=== PATIENT | male | born 1960 | race African-American/Black ===

== ENCOUNTER 2019-10-03 13:35 | Emergency (ER) | payer SELFPAY ==
[2019-10-03 13:36] VITALS: BP 150/114; PULSE 76; RESP 18; TEMP 36.6; O2SAT 99; BMI 22.1
--- NOTE | 2019-10-03 14:10 | EKG12_ITS ---
Test Reason : Blood Pressure : / mmHG Vent. Rate : 063 BPM Atrial Rate : 063 BPM P-R Int : 142 ms QRS Dur : 120 ms QT Int : 434 ms P-R-T Axes : 065 -49 049 degrees QTc Int : 444 ms Normal sinus rhythm Left axis deviation Right bundle branch block Abnormal ECG Confirmed by KRISTIN SNOW, MARCO ANTONIO ([id number]), publications editor TAPAN CASTANEDA ([id number]) on 10/05/2019 12:57:10 PM Referred By: CHRIS Confirmed By:MARCO ANTONIO FOSTER MD
--- NOTE | 2019-10-03 14:11 | ED.DCSUM_ITS ---
- ER Visit Summary Date of Service: 10/03/19 Chief Complaint: Abdominal pain History of Present Illness: The patient is a 58 M with abdominal pain. Patient states that this has been intermittent over the past week. Pain is worsened after eating pizza or greasy foods. He denies nausea or vomiting. Denies diarrhea or constipation. Denies fever or chills. He has had no known exposure to COVID. No recent travel. No loss of sense of taste or smell. Denies shortness of breath or cough. Denies chest pain. Denies other complaints. He states he has missed 3 days of work and needs a note to go back to work. Physical Examination: Vitals are stable. Patient is afebrile. Alert no acute distress. HEENT exam is unremarkable. Neck is supple. Lungs are clear and equal bilaterally. Heart is regular rate and rhythm. Abdomen is soft epigastric, left upper quadrant tenderness with no guarding or rebound Extremities are unremarkable. Skin is warm and dry. No focal neurologic deficit. Remainder of exam is unremarkable. Emergency Department Course and Treatment: Patient was given GI cocktail. EKG is sinus rhythm rate of 63 with no acute ischemic changes. CBC, chemistries unremarkable. Liver enzymes, lipase are normal. Troponin is negative. Patient feels improved following GI cocktail. He was given prescription for Pepcid. Advised to follow-up with his primary care physician. Advised return to ED for worsening complaints. Disposition: Discharge home Impression: Abdominal pain This note was generated with order[employer]ia dictation software. It may contain incorrect words, spelling, and punctuation that were not noted in review of the chart prior to signing ED Disposition - Plan for ED Patient: Instructions: ED Unknown Causes of Abdominal Pain Male Prescriptions: Famotidine [Pepcid] 20 mg PO BID #28 tab Prescription Printed Referrals: Julio Mock MD [NON-STAFF] -
[2019-10-03] MEDS: Mag Hydrox/Al Hydrox/Simeth 30 ML UDC PO (15:00)
[2019-10-03 15:19] LABS: Basophil# 0.04 X10^3/uL; Basophil% 0.8 % (0-1); Eosinophil# 0.33 X10^3/uL; Eosinophils% 6.9 % (0-5); Hematocrit 43.9 % (40-54); Hemoglobin 15.1 g/dL (13.0-16.5); Lymphocyte % 39.8 % (19-41); Mean Corp Hgb Conc 34.4 g/dL (32-36); Mean Corpuscular Hgb 30.6 pg (27.0-32.0); Mean Corpuscular Volume 88.9 fL (80-94); Monocyte# 0.48 X10^3/uL; Monocyte% 10.1 % (0-10); NRBC Flagged by Analyzer 0 % (0-5); Neutrophil # 2.01 X10^3/uL (2.7-7.7); Neutrophil % 42.2 % (47-70); Platelet Count 263 K/mm3 (150-450); RBC Distribution Width CV 14.4 % (11.6-14.6); RBC Distribution Width SD 46.7 fl (35.1-43.9); Red Blood Count 4.94 M/mm3 (4.6-6.2); White Blood Count 4.8 K/mm3 (4.4-11.0)
[2019-10-03 15:40] LABS: ALB/GLOB Ratio 0.8 RATIO (0.9-2.4); AST(SGOT) 10 U/L (15-37); Alanine Aminotransfer ALT/SGPT 13 U/L (16-61); Albumin, Serum 3.3 g/dL (3.2-5.0); Alkaline Phosphatase 75 U/L (45-117); Anion Gap 2 (5-15); BUN 9 mg/dL (7-18); BUN/Creat Ratio 6.8 RATIO (10-20); Calcium,Total 8.8 mg/dL (8.5-10.1); Chloride 107 mmol/L (98-107); Creatinine, Serum 1.32 mg/dL (0.70-1.30); EST Glomerular Filtration Rate 59 mL/min (>60); Est Glom Filt Rate - Afr Amer 71 mL/min (>60); Globulin 4.4 g/dL (2.2-4.2); Glucose 80 mg/dL (74-106); Lipase 172 U/L (73-393); Potassium 3.7 mmol/L (3.5-5.1); Protein, Total 7.7 g/dL (6.4-8.2); Sodium Level 141 mmol/L (136-145)
--- NOTE | 2019-10-03 15:47 | ED.DEP ---
ED Disposition - Plan for ED Patient: Instructions: ED Unknown Causes of Abdominal Pain Male Prescriptions: Famotidine [Pepcid] 20 mg PO BID #28 tab Prescription Printed Referrals: Julio Mock MD [NON-STAFF] -
[2019-10-03 16:09] VITALS: BP 138/89; PULSE 82; RESP 17; O2SAT 96
== END 2019-10-03 16:11 | disposition home or self-care (01) ==
LOC: ED 14:33
PROVIDERS: Emergency Provider Emergency Medicine
DX: R10.9 Unspecified abdominal pain (principal); I45.10 Unspecified right bundle-branch block; Z72.0 Tobacco use
CPT/HCPCS: 80053; 83690; 84484; 85025; 93005; 99284; A4216

== ENCOUNTER 2020-06-21 21:36 | Emergency (ER) | payer MEDICAID, SELFPAY ==
[2020-06-21 21:37] VITALS: BP 126/70; PULSE 76; RESP 18; TEMP 36.4; O2SAT 98; BMI 21.2
--- NOTE | 2020-06-21 22:29 | ED.RN ---
PT SUSPECTS HE HAS HERNIA. REPORTS PAIN IN LFT GROIN AFTER MOVING HEAVY ITEMS THURSDAY. REPORTS PAIN FROM NECK TO GROIN. NAUSEATED SINCE THIS AM. RETCHING, BUT NO VOMITING. REPORTS SENSITIVITY TO LIGHT.
[2020-06-21 23:02] VITALS: BP 147/100; PULSE 78; RESP 18; TEMP 36.6; O2SAT 100
--- NOTE | 2020-06-21 23:05 | US_ITS ---
HISTORY: Pain on left. Evaluate for torsion. 95 images on cine clip. Findings: The cine clip to the left testis demonstrates heterogeneity to the parenchyma. The right testis measures 4.3 x 2.2 x 2 cm. A small right hydrocele is present. Color and pulse-wave Doppler imaging demonstrate arterial flow to right testicular parenchyma. Grayscale images of the left and right testis together in same field of view demonstrate heterogeneity to the left testicular parenchyma. The right epididymal head measures 11 x 8 mm. Color Doppler imaging to the right epididymal head demonstrates flow. The left testis measures 3.4 x 2 x 3.3 cm. Color and pulsed-wave Doppler imaging demonstrate arterial flow and suggests possible venous flow to the left testicular parenchyma. The heterogeneous hypoechoic area is relatively avascular. Tiny left hydrocele is present. The left epididymal head measures 8 mm. The heterogeneous area within the left testicular parenchyma that is mostly hypoechoic relative to the surrounding parenchyma measures 11 x 10 mm Suggested mostly on image 73 and 95, it appears that adjacent to this heterogeneous area there may be a 1.9 cm mass within the left testis that is vascular. US/Testicular with Arterial Flow IMPRESSION: No testicular torsion. Heterogeneous right testis with possible 1.9 cm mass within the heterogeneous left testis. This mass is ill-defined and has hypoechoic avascular superior margins. It is only on one or 2 images were there appears to be a mass otherwise there appears to be an ill-defined area of hypoechoic tissue within the parenchyma. Differential diagnosis includes tumor, such as a nonseminomatous germ cell tumor, infection, or sequelae of trauma. at 0016 Reported and signed by: Armani Robbins MD Electronically Signed: Armani Robbins MD at 0:15 EDT Tel , Service support ,
--- NOTE | 2020-06-21 23:07 | ED.VIS.GI ---
HPI HPI - GI History of Present Illness Chief Complaint: General Illness Informant: patient Abdominal Pain/Flank Pain Onset: Days (2) Context: Gradual Onset (but suddenly worse/severe while at rest tonight) Timing: Continuous and Waxes and wanes Quality: Aching Location: - (left testicle, radiating into left entire abd) Current Severity: Severe Maximum Severity: Severe Worsened by: - (lying on left side, touching or moving testicle) Relieved by: Nothing Nausea/Vomiting/Emesis GI Symptom: Positive for Nausea; Negative for Vomiting Diarrhea/Melena/Hematochezia GI Symptom: Negative for Diarrhea, Melena and Hematochezia Associated Symptoms Associated Symptoms: Negative for Dysuria, Frequency, Hematuria and Urgency Narrative Narrative: Patient presents saying that he has pain from his testicle all the way up into his neck. On further discussion, he states that the pain started in his left testicle and then radiated into his abdomen but was not severe for the last 2 days until just recently prior to arrival, it became very severe all of a sudden with no explanation. He has had nausea off and on. He states his neck on the left is little sore because he has been laying in different positions trying to keep his testicle from hurting, and he thinks he just slept on it wrong. He denies any injuries. Denies any fevers or chills. Denies any discharge or trouble urinating. No history of any abdominal or testicle surgeries or problems, does not take any prescriptions for any medical problems. PFSH PFSH no medical history Home Medications hydrocodone-acetaminophen 1 tab PO Q6H PRN 2 Days #8 tab 06/22/20 [Rx Last Taken Unknown] Allergy/AdvReac Type Severity Reaction Status Date / Time morphine AdvReac Other Verified 06/22/20 00:49 Social History Smoking Status: Current every day smoker ROS ROS ED Constitutional Constitutional ED: Denies chills or fever(s) Eyes Eyes: Denies change in vision or diplopia ENT ENT ED: Denies rhinorrhea or sore throat Cardiovascular Cardiovascular: Denies chest pain or palpitations Respiratory/Chest Respiratory/Chest: Denies cough or dyspnea Gastrointestinal Gastrointestinal: Reports as per HPI and abdominal pain; Denies diarrhea or vomiting Genitourinary Genitourinary ED: Reports as per HPI and scrotal pain; Denies dysuria or hematuria Musculoskeletal Musculoskeletal: Denies back pain Integumentary Denies abscess or rash Neurologic Neurologic: Denies headache(s), paresthesias or weakness Psychiatric Psychiatric: Denies anxiety or suicidal thoughts EXAM Physical Exam Const Vital Signs: 06/21/20 21:37 06/21/20 22:26 06/21/20 23:02 Temperature 97.6 F L 98 F Temperature Source Temporal Temporal Pulse Rate 76 78 Respiratory Rate 18 18 Respiratory Pattern Normal Blood Pressure 126/70 H 147/100 H Blood Pressure Mean 88 115 Pulse Ox 98 100 Oxygen Delivery Method Room Air Room Air 06/22/20 00:00 06/22/20 01:00 Temperature 98 F 97.8 F Temperature Source Temporal Temporal Pulse Rate 86 81 Respiratory Rate 19 H 18 Respiratory Pattern Blood Pressure 138/79 H 130/65 H Blood Pressure Mean 98 86 Pulse Ox 100 99 Oxygen Delivery Method Room Air Positive well nourished and well developed General Appearance ED: well developed and other Mild acute painful distress HEENT Reports moist mucous membranes normocephalic and atraumatic Eyes PERRL and EOMs intact bilaterally Neck full ROM and supple Resp normal respiratory effort and clear to auscultation bilaterally Cardio regular rate, regular rhythm and no murmurs GI non-distended Auscultation: normoactive bowel sounds Palpation: soft and tender LLQ (Only) Narrative: Penis normal. On gross inspection, no hernias in this thin patient. In attempting to examine his testicles, the left is extremely tender, the patient guards and does not allow any detailed examination. It is not grossly swollen. Back/Spine no CVA tenderness General Back: other FROM Extremity normal to inspection General Extremety ED: Negative for edema, pulses abnormal or tenderness General Extremity: Negative for edema or pulses abnormal Neuro oriented x3, CN's II-XII intact bilaterally and no sensory deficits noted Sensorium / Orientation: awake and alert Motor Exam: strength 5/5 throughout Psych mental status grossly normal Mood & Affect: anxious Skin no rashes or lesions noted and no wounds Rashes: no rashes MDM MDM MDM Narrative Medical decision making narrative: Initially there was concern for torsion since he was so exquisitely tender in his left testicle, limiting exam. He was sent for emergent ultrasound, it shows no evidence of torsion but there is a hypoechoic mass in or around the left testicle. Given that the differential also includes a hernia, he was also sent for CT abdomen/pelvis with contrast. His pain was controlled as well as his nausea, and he was given IV fluids. As below his CT is unremarkable. There is no evidence of orchitis or epididymitis or indication for antibiotics at this time. It is unknown if the mass itself was causing all of this pain. Currently his pain is well controlled, and he is discharged with analgesics and close outpatient urologic follow-up. Lab Data Attestation: I reviewed the patient's lab results. Labs: Laboratory Results - last 24 hr 06/22/20 06/22/20 06/22/20 00:20 00:20 01:05 WBC 8.2 RBC 4.97 Hgb 15.0 Hct 43.2 MCV 86.9 MCH 30.2 MCHC 34.7 RDW Std Deviation 46.0 H RDW Coeff of [place] 14.5 Plt Count 264 MPV 9.5 Immature Gran % (Auto) 0.100 Neut % (Auto) 69.4 Lymph % (Auto) 20.4 [place] % (Auto) 8.5 Eos % (Auto) 1.1 Baso % (Auto) 0.5 Absolute Neuts (auto) 5.7 Absolute Lymphs (auto) 1.67 Nucleated RBC % 0 Sodium 137 Potassium 3.8 Chloride 104 Carbon Dioxide 30.0 Anion Gap 3 L BUN 12 Creatinine 1.30 Estim Creat Clear Calc 56.52 Est GFR (MDRD) Af Amer 73 Est GFR (MDRD) Non-Af 60 BUN/Creatinine Ratio 9.2 L Glucose 99 Calcium 9.1 Urine Color Yellow Urine Clarity Clear Urine pH 7.0 Ur Specific [place] 1.010 Urine Protein Negative Urine Glucose (UA) Normal Urine Ketones Negative Urine Occult Blood Negative Urine Nitrite Negative Urine Bilirubin Negative Urine Urobilinogen 8 H Ur Leukocyte Esterase Negative Urine RBC 0 SEEN Urine WBC 0 SEEN Ur Squamous Epith Cells 0-5 SEEN Ur Transition Epith Cell 0-5 SEEN Urine Bacteria 0 SEEN Urine Mucus 0 SEEN Radiography Diagnostic Testing: Radiology Impression Testicular Ultrasound 06/21/20 23:05 IMPRESSION: No testicular torsion. Heterogeneous right testis with possible 1.9 cm mass within the heterogeneous left testis. This mass is ill-defined and has hypoechoic avascular superior margins. It is only on one or 2 images were there appears to be a mass otherwise there appears to be an ill-defined area of hypoechoic tissue within the parenchyma. Differential diagnosis includes tumor, such as a nonseminomatous germ cell tumor, infection, or sequelae of trauma. at 0016 Reported and signed by: Armani Robbins MD Electronically Signed: Armani Robbins MD at 0:15 EDT Tel , Service support , Abdomen/Pelvis CT 06/22/20 01:23 IMPRESSION: Fibrotic lung disease. Likely emphysema. Trace pelvic free fluid. No retroperitoneal adenopathy. Individualized dose optimization techniques were used for this CT. at 0320 Reported and signed by: Armani Robbins MD Electronically Signed: Armani Robbins MD at 3:19 EDT Tel , Service support , Discharge Plan Triage Chief Complaint: General Illness ED Provider: Fernando Murillo Dx/Rx/DC Orders Clinical Impression: Mass of left testicle, Left testicular pain, Left lower quadrant abdominal pain Prescriptions: New hydrocodone-acetaminophen 5-325 mg tablet 1 tab PO Q6H PRN (Reason: pain) 2 Days Qty: 8 RF: 0 Primary Care Provider: Care Physician,No Primary Referrals: Vignesh Pike MD [STAFF PHYSICIAN] - As soon as possible (Call for appointment) Care Physician,No Primary [Primary Care Provider] - Disposition Disposition: Home, self care
[2020-06-22] VITALS: BP 138/79; PULSE 86; RESP 19; TEMP 36.6; O2SAT 100
[2020-06-22] MEDS: Ondansetron 4 MG/2 ML Vial IV (00:25)
[2020-06-22] MEDS: Morphine 4 MG/ML Syringe IV (00:25)
[2020-06-22 00:26] LABS: Absolute Lymphocyte Count 1.67 X10^3/uL (0.83-4.51); Absolute Neutrophil Count 5.7 X10^3/uL (2.0-7.7); Basophil# 0.04 X10^3/uL; Basophil% 0.5 % (0-1); Eosinophil# 0.09 X10^3/uL; Eosinophils% 1.1 % (0-5); Hematocrit 43.2 % (40-54); Lymphocyte # 1.67 X10^3/ul (0.83-4.51); Lymphocyte % 20.4 % (19-41); Mean Corp Hgb Conc 34.7 g/dL (32-36); Mean Corpuscular Hgb 30.2 pg (27.0-32.0); Mean Corpuscular Volume 86.9 fL (80-94); Mean Platelet Vol. 9.5 fl (6.2-12.0); Monocyte% 8.5 % (0-10); NRBC Flagged by Analyzer 0 % (0-5); Neutrophil # 5.68 X10^3/uL (2.7-7.7); Neutrophil % 69.4 % (47-70); Platelet Count 264 K/mm3 (150-450); RBC Distribution Width CV 14.5 % (11.6-14.6); Red Blood Count 4.97 M/mm3 (4.6-6.2); White Blood Count 8.2 K/mm3 (4.4-11.0)
[2020-06-22 00:50] LABS: Anion Gap 3 (5-15); BUN 12 mg/dL (7-18); BUN/Creat Ratio 9.2 RATIO (10-20); Calcium,Total 9.1 mg/dL (8.5-10.1); Chloride 104 mmol/L (98-107); EST Glomerular Filtration Rate 60 mL/min (>60); Est Glom Filt Rate - Afr Amer 73 mL/min (>60); Estimated Creatinine Clearance 56.52 ml/min; Glucose 99 mg/dL (74-106); Potassium 3.8 mmol/L (3.5-5.1); Sodium Level 137 mmol/L (136-145)
[2020-06-22 01:00] VITALS: BP 130/65; PULSE 81; RESP 18; TEMP 36.6; O2SAT 99
[2020-06-22 01:14] LABS: Bacteria 0 SEEN /hpf (None Seen); Mucous, Urine 0 SEEN /hpf (<or=2+); Red Blood Cells-Urine 0 SEEN /hpf (0-5); White Blood Cells 0 SEEN /hpf (0-5)
[2020-06-22 01:15] LABS: Color, Urine Yellow (Yellow); Glucose, Dipstick Normal (Normal); Ketone-Dipstick Negative (Negative); Leukocyte Esterase-Dipstick Negative /ul (Negative); Nitrite-Dipstick Negative (Negative); Occult Blood-Urine Negative /ul (Negative); Protein-Dipstick Negative (Negative); Urine Bilirubin Dipstick Negative (Negative); Urine Clarity Clear (Clear); Urine Urobilinogen 8 mg/dl (Normal)
[2020-06-22 01:21] LABS: Squamous Epithelial Cells - UA 0-5 SEEN /hpf (0-5); Transitional Epithelial - Ur 0-5 SEEN /hpf (0-5)
--- NOTE | 2020-06-22 01:23 | CT_ITS ---
HISTORY: Left-sided abdominal and testicular pain. Abnormality in left testis on testicular ultrasound. TECHNIQUE: Helically acquired images were obtained of the abdomen and pelvis following the intravenous administration of 100 ML of Isovue 300 Iodinated contrast. 2D reformats. No oral contrast was administered. A radiation dose optimization technique was used for this scan. COMPARISON: Testicular ultrasound from 3 hours earlier FINDINGS: # of images incl. paperwork: [id number] LUNG BASES: Fibrotic lung disease. Possible bleb mild paraseptal emphysema. No metastatic pulmonary nodules perceived. The left ventricle is mildly enlarged CT abdomen: The lowest pair of ribs are tiny. There are only 4 non-rib bearing lumbar vertebral bodies, normal anatomic variability The gallbladder remains. Liver, spleen, pancreas, and adrenal glands, are normal. The kidneys are normal. The aorta is normal. CT pelvis: Trace pelvic ascites is present. The appendix is normal. Series 2 image 74. The prostate gland is not enlarged. Series 2 image 124 demonstrates the heterogeneous area within the left testis that is hypodense measuring 12 mm.. The bladder is mildly decompressed. Bowel-gas pattern is normal. CT/Abdomen/Pelvis W IV Cont ONLY IMPRESSION: Fibrotic lung disease. Likely emphysema. Trace pelvic free fluid. No retroperitoneal adenopathy. Individualized dose optimization techniques were used for this CT. at 0320 Reported and signed by: Armani Robbins MD Electronically Signed: Armani Robbins MD at 3:19 EDT Tel , Service support ,
[2020-06-22 03:51] VITALS: BP 135/60; PULSE 78; RESP 18; O2SAT 96
[2020-06-22] MEDS: HYDROcodone Bitartrate/Apap 5/325 Tablet PO (04:19)
== END 2020-06-22 03:51 | disposition home or self-care (01) ==
PROVIDERS: Emergency Provider Emergency Medicine
DX: N50.812 Left testicular pain (principal); R10.32 Left lower quadrant pain; J84.10 Pulmonary fibrosis, unspecified; J98.4 Other disorders of lung; F17.200 Nicotine dependence, unspecified, uncomplicated
CPT/HCPCS: 74177; 76870; 80048; 81001; 85025; 93976; 96374; 96375; 99285; J7040; Q9967; A4216; J2405

== ENCOUNTER 2021-05-29 11:21 | Emergency (ER) | payer MEDICAID, SELFPAY ==
[2021-05-29 11:22] VITALS: BP 184/97; PULSE 61; RESP 16; TEMP 35.9; O2SAT 100; BMI 20.5
[2021-05-29 11:36] LABS: Bedside Glucose 107 mg/dL (74-106)
--- NOTE | 2021-05-29 11:36 | EKG12_ITS ---
Test Reason : SYNCOPE Blood Pressure : / mmHG Vent. Rate : 052 BPM Atrial Rate : 052 BPM P-R Int : 144 ms QRS Dur : 126 ms QT Int : 464 ms P-R-T Axes : 069 -54 045 degrees QTc Int : 431 ms Sinus bradycardia Left axis deviation Right bundle branch block Abnormal ECG Confirmed by SHOSHANA SNOW, JESSICA ([id number]), scientific editor TAPAN CASTANEDA ([id number]) on 05/30/2021 12:47:54 P M Referred By: REJI Confirmed By:KOLBY ANNA MD
[2021-05-29 11:39] VITALS: O2SAT 100
--- NOTE | 2021-05-29 11:39 | EX.ED.DYSGE1 ---
HPI History of Present Illness Chief Complaint: Syncope Informant: patient Onset/Context/Timing Onset: Today and Hours Context: Sudden Onset Timing: Continuous Current Severity: Mild Maximum Severity: Moderate Narrative Narrative: 60-year-old male with no significant past medical history. Currently on no medications. Patient states he was at work felt fine and felt fine the last several days. Patient was at work. States he felt fine. He had a syncopal event in the next thing he remembers after passing out was upright sitting in a chair. Said prior to passing out he thought he felt fine. After he awoke he said he has severe headache and in back of his head. He also noticed weakness in his left arm and leg. He has never had anything like this before. He is on no blood thinners. Prior similar symptoms: No Recent Illness/Hospitalization: No PFSH PFSH Medical History no medical history Home Medications NK 05/29/21 [History Last Taken Unknown] Allergy/AdvReac Type Severity Reaction Status Date / Time morphine AdvReac Other Verified 05/29/21 11:32 Surgical History no surgical history Social History Smoking Status: Current every day smoker tobacco type: cigarettes ROS ROS ED ROS Narrative Denies recent illness. Currently has a headache. Review of Systems ROS Unobtainable: Denies due to encephalopathy Constitutional Constitutional ED: Denies fever(s) Eyes Eyes: Denies change in vision ENT ENT ED: Denies ear pain Cardiovascular Cardiovascular: Denies chest pain Respiratory/Chest Respiratory/Chest: Denies dyspnea Gastrointestinal Gastrointestinal: Denies abdominal pain Genitourinary Genitourinary ED: Denies dysuria Musculoskeletal Musculoskeletal: Denies myalgias Integumentary Denies rash Neurologic Neurologic: Reports headache(s) Psychiatric Psychiatric: Denies depression Endocrine Endocrinology: Denies polyuria Allergic/Immunologic Allergic/Immunologic ED: Denies urticaria EXAM Physical Exam Narrative Exam Narrative: 60-year-old male vital signs stable afebrile. Initial blood pressure was elevated at 184/97. He does not look septic or toxic. H EENT exam pupils round reactive light extremities are intact. No facial droop. Normal speech. There is no signs of trauma on his head or scalp. Scalp is nontender. Neck nontender. Trachea midline. No meningismus. Lungs clear to auscultation bilaterally. Heart regular rhythm rate about 60 no murmur. Chest wall nontender. Abdomen soft nontender. Back nontender. Patient is moving all 4 extremities. 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 Also has a weakness in his left leg versus right. No numbness. Weaker dorsi plantarflexion. He has some ataxia with pointing of the left index finger compared to the right. Also with the left leg. Neurologic exam NIH about a 5. Normal speech. No facial droop. Answers questions normally. Knows date, month, year. Const Vital Signs: 05/29/21 11:22 05/29/21 11:31 05/29/21 11:39 Temperature 96.7 F L Temperature Source Temporal Pulse Rate 61 Respiratory Rate 16 Respiratory Effort Normal Non-Labored Respiratory Pattern Normal Blood Pressure 184/97 H Blood Pressure Mean 126 Pulse Ox 100 100 Oxygen Delivery Method Room Air Room Air 05/29/21 12:25 Temperature Temperature Source Pulse Rate 58 L Respiratory Rate 10 L Respiratory Effort Respiratory Pattern Blood Pressure 182/93 H Blood Pressure Mean 122 Pulse Ox 100 Oxygen Delivery Method Room Air Positive well nourished and well developed; Negative for obese, cachectic, contractures or unkempt General Appearance ED: well developed and NAD; Negative for unkempt, cachectic, contractures, cyanotic, diaphoretic or pallor Nutritional Appearance: Negative for cachectic or obese HEENT Reports moist mucous membranes Negative for trauma or tenderness Eyes PERRL and EOMs intact bilaterally General Eye ED: Negative for pale conjunctiva or scleral icterus Neck no lymphadenopathy, supple and no JVD General: Negative for tenderness Chest Wall inspection of chest normal and palpation of chest normal Resp normal respiratory effort and clear to auscultation bilaterally Effort and Inspection: Negative for pain with movement Auscultation: Negative for rales, rhonchi or wheezes Cardio regular rate, regular rhythm, S1 normal heart sound, S2 normal heart sound and no murmurs GI normal to inspection, nondistended, normoactive bowel sounds, non-tender, non-distended and no masses Inspection: Negative for abdominal distention Auscultation: normoactive bowel sounds Palpation: soft; Negative for tender, guarding or rebound tenderness present Back/Spine no CVA tenderness General Back: Negative for CVA tenderness Cervical Spine: Negative for cervical spine tenderness Thoracic Spine / Upper Back: Negative for thoracic spinal tenderness or paraspinal muscle tenderness Lumbar Spine / Lower Back: Negative for lumbar spinal tenderness Extremity normal to inspection General Extremety ED: Negative for edema or tenderness General Extremity: Negative for edema Neuro oriented x3 and No no sensory deficits noted Neuro Narrative: Left arm weakness and left leg weakness with past-pointing. Sensorium / Orientation: alert; Negative for orientation impaired, lethargic or stuporous Motor Exam: strength abnormal; Negative for strength 5/5 throughout or general weakness Psych mental status grossly normal Appearance: Negative for unkempt Mood & Affect: Negative for depressed or tearful Skin no rashes or lesions noted and no wounds General Skin Exam: Negative for jaundice or pallor MDM MDM MDM Narrative Medical decision making narrative: 60-year-old male at work with a syncopal episode but after he awoke he has had a headache and left arm and leg weakness. To be placed through stroke protocol with a CT and CTA head and neck. Multiple repeat exams patient is doing well. He was evaluated by the [facility] stroke neurologist. She obtained an NIH of around 3. We decided between her, myself and the patient that he was not a tPA candidate. It really does not make sense with his presentation of syncope. I spoke to the patient at length. Explained to him that we would admit him for syncope and we can do further evaluation of the left-sided weakness if it is real or not. Most likely an MRI. He absolutely does not want to be admitted. He understands the risks and benefits of going home. He will go home and follow-up with a primary care physician. He has not seen a physician for 20 years. Repeat exam he is doing well. He did ambulate in the hallway with the nurse without difficulty. Lab Data Attestation: I reviewed the patient's lab results. Lab results narrative: CBC normal. White count 5. H&H 13 and 40. Electrolytes unremarkable gap of 4. Normal BUN and creatinine. Glucose 105. Troponin normal at 7. CTA of the head and neck unremarkable. Labs: Laboratory Results - last 24 hr 05/29/21 05/29/21 05/29/21 11:29 11:30 11:30 WBC 5.1 RBC 4.60 Hgb 13.9 Hct 40.6 MCV 88.3 MCH 30.2 MCHC 34.2 RDW Std Deviation 46.7 H RDW Coeff of Sheldon 14.5 Plt Count 278 MPV 9.9 Immature Gran % (Auto) 0.400 Neut % (Auto) 47.9 Lymph % (Auto) 34.7 [place] % (Auto) 10.3 H Eos % (Auto) 5.9 H Baso % (Auto) 0.8 Absolute Neuts (auto) 2.4 Absolute Lymphs (auto) 1.75 Nucleated RBC % 0 Sodium 140 Potassium 3.7 Chloride 105 Carbon Dioxide 31.0 Anion Gap 4 L BUN 9 Creatinine 1.15 Estim Creat Clear Calc 61.06 Est GFR (MDRD) Af Amer 83 Est GFR (MDRD) Non-Af 69 BUN/Creatinine Ratio 7.8 L Glucose 105 Calcium 8.9 Troponin I High Sens POC Glucose 107 H 05/29/21 11:30 WBC RBC Hgb Hct MCV MCH MCHC RDW Std Deviation RDW Coeff of Sheldon Plt Count MPV Immature Gran % (Auto) Neut % (Auto) Lymph % (Auto) [place] % (Auto) Eos % (Auto) Baso % (Auto) Absolute Neuts (auto) Absolute Lymphs (auto) Nucleated RBC % Sodium Potassium Chloride Carbon Dioxide Anion Gap BUN Creatinine Estim Creat Clear Calc Est GFR (MDRD) Af Amer Est GFR (MDRD) Non-Af BUN/Creatinine Ratio Glucose Calcium Troponin I High Sens 7 POC Glucose Radiography Chest X-Ray - ED: 1 View, Read by ED Physician, Heart, Lungs, Mediastinum, Bony Structures, No Acute Disease and Chronic Changes Diagnostic Testing: Clinical Impression(s) from Imaging Studies Head/Neck CTA 05/29/21 11:40 IMPRESSION: Unremarkable CT Brain, CTA Carotid, and CTA Brain. Electronically Signed: Woody Amezquita MD at 12:14 EDT Reading Location ID and State: [facility] / [place] Tel , Service support , Chest X-Ray 05/29/21 11:55 IMPRESSION: No radiographic evidence of acute cardiopulmonary disease. Electronically Signed: Woody Amezquita MD at 12:15 EDT , Chest x-ray, portable, single view interpreted by myself shows no acute abnormality. Normal cardiac silhouette, lung collins mediastinum and aortic knob. Rhythm Strip Rhythm Strip: Sinus Rhythm Rate: 52 Ectopy: None EKG Initial EKG: Attestation: I personally reviewed and interpreted this EKG as follows: Interpretation: Sinus Rhythm and Sinus Bradycardia Comments: Sinus bradycardia rate of 52 no acute signs of [place] or ischemia. Discharge Plan Triage Chief Complaint: Syncope ED Provider: Galindo Quiñones Dx/Rx/DC Orders Clinical Impression: Syncope, Acute left-sided weakness, Bradycardia Instructions: ED Bradycardia, ED Fainting, Uncertain Cause Prescriptions: No Action NK RF: 0 Primary Care Provider: Care Physician,No Primary Referrals: Paul Thomason MD [STAFF PHYSICIAN] - As soon as possible Care Physician,No Primary [Primary Care Provider] - Activity Restrictions/Additional Instructions: We do not know why you passed out today. When he initially presented your heart rate was slow in the 50s. Normally we would admit you and monitor you over the next 24 hours. You need to follow-up with a primary care physician locally for further evaluation. Your labs today, CAT scan and x-rays were unremarkable. If you pass out again or feeling worse return. Disposition Disposition: Home, Self Care
--- NOTE | 2021-05-29 11:40 | CT_ITS ---
INDICATION: left sided weakness EXAMINATION: CT BRAIN WITH CONTRAST TECHNIQUE: Noncontrast axial images were obtained of the brain. Subsequently, routine carotid CT angiogram protocol was performed without and with IV contrast. In addition, images were obtained of the [place] of [place]. NASCET criteria using the distal ICAs for comparison were used for evaluation of stenoses. 3D reconstructions were reviewed. A radiation dose optimization technique was used for this scan. IV Contrast dosage and agent: 100 mL of Isovue-370 COMPARISON: None. FINDINGS: --CT BRAIN: BRAIN PARENCHYMA: No intra- or extra-axial hemorrhage. No evidence of acute infarct. No intracranial mass or mass effect. There is preservation of the varner/white matter interface. Posterior fossa structures are unremarkable. CSF SPACES: Appropriate for age. No hydrocephalus. Basal cisterns are patent. CALVARIUM, SKULL BASE, PARANASAL SINUSES AND MASTOID AIR CELLS: Clear. No discrete lytic or blastic abnormalities. ASPECTS Score for Acute Strokes: 10 --CTA NECK: AORTIC ARCH AND BRANCHES: Normal anatomy, patent. RIGHT CCA: No occlusion, significant stenosis or dissection. RIGHT ICA: No occlusion, significant stenosis or dissection. LEFT CCA: No occlusion, significant stenosis or dissection. LEFT ICA: No occlusion, significant stenosis or dissection. RIGHT VERTEBRAL ARTERY: No occlusion, significant stenosis or dissection. LEFT VERTEBRAL ARTERY: No occlusion, significant stenosis or dissection. NECK SOFT TISSUES: Unremarkable. --CTA HEAD: --Anterior circulation: ICAs: No significant stenosis at the intracranial/visualized segments. ACAs: No significant stenosis at the visualized segments. ACOM: Present. MCAs: No significant stenosis at the visualized segments. --Posterior circulation: PCOMs: voice over artist: No significant stenosis at the visualized segments. BASILAR ARTERY: No significant stenosis. VERTEBRAL ARTERIES: No significant stenosis at the intradural/visualized segments. No evidence of intracranial aneurysm or vascular malformation. CT/CTA Head AND Neck W/ Contrast IMPRESSION: Unremarkable CT Brain, CTA Carotid, and CTA Brain. Electronically Signed: Woody Amezquita MD at 12:14 EDT ,
[2021-05-29 11:45] LABS: Absolute Lymphocyte Count 1.75 X10^3/uL (0.83-4.51); Absolute Neutrophil Count 2.4 X10^3/uL (2.0-7.7); Basophil# 0.04 X10^3/uL; Basophil% 0.8 % (0-1); Eosinophils% 5.9 % (0-5); Hematocrit 40.6 % (40-54); Hemoglobin 13.9 g/dL (13.0-16.5); Lymphocyte # 1.75 X10^3/ul (0.83-4.51); Lymphocyte % 34.7 % (19-41); Mean Corp Hgb Conc 34.2 g/dL (32-36); Mean Corpuscular Hgb 30.2 pg (27.0-32.0); Mean Corpuscular Volume 88.3 fL (80-94); Mean Platelet Vol. 9.9 fl (6.2-12.0); Monocyte# 0.52 X10^3/uL; Monocyte% 10.3 % (0-10); NRBC Flagged by Analyzer 0 % (0-5); Neutrophil # 2.42 X10^3/uL (2.7-7.7); Neutrophil % 47.9 % (47-70); Platelet Count 278 K/mm3 (150-450); RBC Distribution Width CV 14.5 % (11.6-14.6); RBC Distribution Width SD 46.7 fl (35.1-43.9); White Blood Count 5.1 K/mm3 (4.4-11.0)
--- NOTE | 2021-05-29 11:55 | RAD_ITS ---
INDICATION: chest pain EXAMINATION/TECHNIQUE: X-RAY - XR Chest 1 View COMPARISON: None. FINDINGS: LINES/DEVICES: None. LUNGS: No consolidation, edema or effusion. No pneumothorax. MEDIASTINUM AND CARDIOVASCULAR STRUCTURES: Cardiac silhouette not enlarged. Central airways and mediastinal contour are unremarkable. BONES AND SOFT TISSUES: Unremarkable. RAD/Chest 1 View (Portable) IMPRESSION: No radiographic evidence of acute cardiopulmonary disease. Electronically Signed: Woody Amezquita MD at 12:15 EDT ,
[2021-05-29 11:58] LABS: Anion Gap 4 (5-15); BUN 9 mg/dL (7-18); BUN/Creat Ratio 7.8 RATIO (10-20); Calcium,Total 8.9 mg/dL (8.5-10.1); Chloride 105 mmol/L (98-107); Creatinine, Serum 1.15 mg/dL (0.70-1.30); EST Glomerular Filtration Rate 69 mL/min (>60); Est Glom Filt Rate - Afr Amer 83 mL/min (>60); Estimated Creatinine Clearance 61.06 ml/min; Glucose 105 mg/dL (74-106); Potassium 3.7 mmol/L (3.5-5.1); Sodium Level 140 mmol/L (136-145)
[2021-05-29 12:05] LABS: Troponin-I HS (w/2H Reflex) 7 pg/mL (3.0-78.0)
--- NOTE | 2021-05-29 12:12 | CM.ED ---
Social Work Responding to stroke alert. No family present. Patient request for this manager social media to contact patients on, Rafael to update on patient being in ED and that a stroke alert has been called. Telephone call to Rafael, This manager social media introduced self and manager social media role. This manager social media updated Rafael on above information. Rafael plans to head to ED and will be here in the next hour or so. This manager social media updated patient that Rafael is heading towards the ED but will be an hour or so. Patient denies any other request/social work needs. No further services indicated or requested. Jarad Jones MSW, TALITA
--- NOTE | 2021-05-29 12:16 | ED.RN ---
THIS RN AT BEDSIDE WITH TAWNY WHITTEN. CALLED [facility] STROKE LERT PER DAGOBERTO MENDOZA MD. BP 182/93 PULSE 62 RR 15
[2021-05-29 12:25] VITALS: BP 182/93; PULSE 58; RESP 10; O2SAT 100
[2021-05-29 13:10] VITALS: BP 157/89; PULSE 50; RESP 17; O2SAT 97
--- NOTE | 2021-05-29 13:12 | CM.ED ---
Supervisor Hand Workers This drug abuse social worker also noting that patient does not have a PCP. Patient to be discharge to the community. This drug abuse social worker met with patient in room again. Patient remembering this drug abuse social worker from earlier. This drug abuse social worker broached topic of PCP for patient. Patient confirms to not have a PCP. Patient is open to this drug abuse social worker providing patient with list of in-network PCP's that are local to patient geographical region, list provided. Patient denies any further needs/concerns. Jarad Jones MSW, PATRICIA-S
[2021-05-29 13:40] LABS: Reflex Troponin-HS? (from REC) Y
--- NOTE | 2021-05-29 15:25 | CHAPLAIN ---
Type of Pastoral Visit ___ Initial Visit ___ Follow-up Visit ___ On-call Visit ___ General Patient Visit ___ Spiritual Assessment ___ Family Conference ___ Bereavement _x__ Rapid Response ___ Code Blue ___ Other (describe below) Pastoral Care Referral From ___ Patient ___ Family ___ Nurse ___ Physician ___ Reinforcing Steel Placer ___ Network Management Specialist _x__ Other (describe below) Sacrament/Intervention ___ Active listening ___ Anointing ___ Orthodoxy ___ Bereavement ___ Communion ___ Emily exploration ___ ___ Life review ___ Prayer ___ Reconciliation ___ Sacrament of Sick ___ Supportive presence ___ Wedding ___ Other (describe below) Pastoral Comments responded to stroke alert; patient is in room waiting for consult with [facility] team; introduced self and offered support; pt is able to speak and understand; pt states that he appreciates offer but is doing fine; evaluation begins so this hydroelectric plant electrician left room; no family members or friends are present at this time; SW is on the scene as well
== END 2021-05-29 13:13 | disposition home or self-care (01) ==
PROVIDERS: Emergency Provider Emergency Medicine; Visit Provider Emergency Medicine
DX: R55 Syncope and collapse (principal); R00.1 Bradycardia, unspecified; F17.210 Nicotine dependence, cigarettes, uncomplicated; R53.1 Weakness
CPT/HCPCS: 70496; 70498; 71045; 80048; 82962; 84484; 85025; 93005; 99285; Q9967

== ENCOUNTER 2021-09-11 15:38 | Emergency (ER) | payer BC, MEDICAID, SELFPAY ==
[2021-09-11 15:39] VITALS: BP 150/96; PULSE 73; RESP 16; TEMP 36.6; O2SAT 98; BMI 20.7
[2021-09-11] MEDS: Acetaminophen 325 MG Tablet 650 MG PO (16:01)
--- NOTE | 2021-09-11 16:01 | EDS_ITS ---
HPI History of Present Illness Chief Complaint: General Illness Informant: patient Narrative Narrative: Patient is a 60-year-old male that denies any significant past medical history however chart review does show history of depression, presenting with flulike illness. Patient states he woke up this morning not feeling right and now just hurts all over. He states he has body aches, all of his joints hurt especially his shoulders and his hips, his mouth feels dry and I feel like he is going to . Notes that even his eyes hurt. Has not taken anything [id number] for his medications. States that he missed work today because he is not feeling well. He has had a cough today that is productive of phlegm but denies any colors in the phlegm. Is a smoker. Notes that his boss and coworker recently returned to work after diagnosis of COVID. Has nausea but no vomiting. Denies any diarrhea. Has been urinating normally but notes that his urine is darker today. Admits to decreased oral intake today. No other complaints at this time. PFSH PFSH Home Medications nicotine (polacrilex) 2 mg gum 2 mg buccal Q2H #50 ea 08/15/21 [Rx Last Taken Unknown] nicotine 21 mg/24 hr daily transdermal patch 1 patch transdermal DAILY #28 ea 08/15/21 [Rx Last Taken Unknown] omeprazole 20 mg capsule,delayed release 20 mg PO DAILY #30 caps 08/27/21 [Rx Last Taken Unknown] ibuprofen 600 mg tablet 600 mg PO Q6H PRN PRN fever or pain #20 tabs 09/11/21 [Rx Last Taken Unknown] Allergy/AdvReac Type Severity Reaction Status Date / Time morphine AdvReac Other Verified 09/11/21 15:40 Family History Brother Kidney disease Unknown Kidney disease Unknown Kidney disease Surgical History History of tonsillectomy Social History household members: none current occupational status: employed current occupation: works at the [employer] Smoking Status: Current every day smoker tobacco type: cigars per week: 35 Tobacco: How many years used: 37 Electronic Cigarette Use: not used alcohol intake: former year quit: 2004 substance use type: marijuana what type of physical activity do you participate in: none do you feel safe at home: Yes ROS ROS ED Constitutional Constitutional ED: Reports chills; Denies fever(s) or sweats Eyes Eyes: Denies change in vision or diplopia ENT ENT ED: Reports sore throat; Denies ear pain or rhinorrhea Cardiovascular Cardiovascular: Denies chest pain or palpitations Respiratory/Chest Respiratory/Chest: Reports cough; Denies dyspnea or dyspnea on exertion Gastrointestinal Gastrointestinal: Reports nausea; Denies abdominal pain, constipation, diarrhea or vomiting Genitourinary Genitourinary ED: Denies dysuria, hematuria or urinary frequency Musculoskeletal Musculoskeletal: Reports arthralgias, back pain, myalgias and neck pain Integumentary Denies rash Neurologic Neurologic: Reports headache(s); Denies paresthesias or weakness Psychiatric Psychiatric: Denies anxiety EXAM Physical Exam Const Vital Signs: 09/11/21 15:39 09/11/21 15:53 09/11/21 16:03 Temperature 98 F 99.6 F H Temperature Source Temporal Oral Pulse Rate 73 Respiratory Rate 16 Respiratory Effort Normal Non-Labored Respiratory Pattern Normal Blood Pressure 150/96 H Blood Pressure Mean 114 Pulse Ox 98 Oxygen Delivery Method Room Air Positive well nourished and well developed Constitutional Narrative: Thin General Appearance ED: well developed and NAD HEENT Reports moist mucous membranes HEENT Narrative: Mild oral pharyngeal injection present. Uvula is midline. Negative for trauma Eyes PERRL and EOMs intact bilaterally General Eye ED: Negative for pale conjunctiva or scleral icterus Neck supple and no JVD Neck Narrative: No meningeal signs Chest Wall inspection of chest normal Resp normal respiratory effort and clear to auscultation bilaterally Auscultation: Negative for rales, rhonchi or wheezes Cardio regular rate, regular rhythm and no murmurs GI normal to inspection, nondistended, normoactive bowel sounds Palpation: tender periumbilical; Negative for guarding or splenomegaly Back/Spine no CVA tenderness Extremity normal to inspection Extremity Narrative: Diffuse tenderness with palpation. General Extremety ED: Yes tenderness; Negative for edema General Extremity: Negative for edema Neuro oriented x3 and no sensory deficits noted Motor Exam: general weakness Psych mental status grossly normal Mood & Affect: anxious Skin no rashes or lesions noted and no wounds MDM MDM MDM Narrative Medical decision making narrative: Patient is evaluated for chills, generalized malaise, myalgias and arthralgias. He does have a cough. Presentation consistent with a viral illness, possibly COVID given his recent exposures. Patient is given ibuprofen and Tylenol in the emergency room with improvement of his symptoms. On repeat evaluation patient is eating [employer] and stating he is hungry. Patient will be given a work note and counseled that while his rapid COVID test is negative it is possible that since he is only had 24 hours of symptoms it is a false negative. He is offered a PCR test but declines. Is counseled to take at home COVID test in 48 hours if still symptomatic. Will be given a work note. Given a prescription for Motrin 600 mg. Counseled on keeping up his hydration. Discharged home in stable and improved condition. Radiography Chest X-Ray - ED: 1 View, Read by ED Physician, Read by Radiologist and No Acute Disease Diagnostic Testing: Clinical Impression(s) from Imaging Studies Chest X-Ray 09/11/21 16:09 IMPRESSION: No acute cardiopulmonary process. Electronically Signed: Kirsten Pang MD at 16:32 EDT , Discharge Plan Triage Chief Complaint: General Illness ED Provider: Magali Urban Dx/Rx/DC Orders Clinical Impression: Viral illness, Arthralgia, Malaise and fatigue Instructions: ED Viral Syndrome (Adult) Prescriptions: New ibuprofen 600 mg tablet 600 mg PO Q6H PRN PRN (Reason: fever or pain) Qty: 20 0RF No Action nicotine 21 mg/24 hr patch 24 hour 1 patch transdermal DAILY Qty: 28 0RF nicotine (polacrilex) 2 mg gum 2 mg buccal Q2H Qty: 50 0RF omeprazole 20 mg capsule,delayed release(DR/EC) 20 mg PO DAILY Qty: 30 1RF Stand Alone Forms: ED Work / School Excuse Primary Care Provider: Nicolasa Machuca Referrals: Nicolasa Machuca MD [Primary Care Provider] - Activity Restrictions/Additional Instructions: I suspect you have a viral illness that is causing her symptoms. While your COVID test was negative you should retest in 2 to 3 days if still symptomatic with a home test. It is possible you had a false negative today since you have only had symptoms for 1 day. Take [id number] Tylenol as well and in ad dition to the ibuprofen prescribed today for your symptoms. Drink lots of fluids. Disposition Disposition: Home, Self Care
[2021-09-11] MEDS: Ibuprofen 600 MG Tablet PO (16:02)
[2021-09-11 16:03] VITALS: TEMP 37.6
--- NOTE | 2021-09-11 16:09 | RAD_ITS ---
STUDY: X-RAY CHEST REASON FOR EXAM: Male, 60 years old. Cough TECHNIQUE: Single frontal view of the chest. COMPARISON: 05/29/2021 FINDINGS: There is no new focal consolidation. Normal size heart. Normal mediastinum and rachel. Normal visualized pulmonary arteries. Normal visualized aortic arch and descending thoracic aorta. Normal visualized thoracic spine. Normal visualized ribs, clavicles, and shoulders. There is no demonstrated abnormality of the visualized soft tissue structures of the upper abdomen. RAD/Chest 1 View (Portable) IMPRESSION: No acute cardiopulmonary process. Electronically Signed: Kirsten Pang MD at 16:32 EDT ,
== END 2021-09-11 17:44 | disposition home or self-care (01) ==
PROVIDERS: Emergency Provider Emergency Medicine; PCP Internal Medicine; Visit Provider Emergency Medicine
DX: B34.9 Viral infection, unspecified (principal); F17.290 Nicotine dependence, other tobacco product, uncomplicated; R53.81 Other malaise; F12.90 Cannabis use, unspecified, uncomplicated; R11.0 Nausea; Z20.822 Contact with and (suspected) exposure to COVID-19; R53.83 Other fatigue
CPT/HCPCS: 71045; 87811; 99283

== ENCOUNTER 2022-01-16 10:57 | Emergency (ER) | payer MEDICAID, BC, SELFPAY ==
[2022-01-16 10:58] VITALS: BP 112/89; PULSE 70; RESP 16; TEMP 36.6; O2SAT 100; BMI 19.2
--- NOTE | 2022-01-16 12:11 | EDS_ITS ---
HPI History of Present Illness Chief Complaint: General Illness Narrative Narrative: 61-year-old male, smoker, who denies significant past medical history presents with fever, myalgias, and generalized weakness that has had since Thursday, 4 days ago. He has been taking Tylenol but complains of multiple myalgias, and rib pain when he breathes. He denies any nausea or vomiting. No diarrhea. No other symptoms. [facility] Medical History (Updated 01/16/22 @ 13:53 by Hardik Healy MD) COVID Home Medications ibuprofen 600 mg tablet 600 mg PO Q6H PRN PRN fever or pain #20 tabs 09/11/21 [Rx Last Taken Unknown] Allergy/AdvReac Type Severity Reaction Status Date / Time morphine AdvReac Other Verified 01/16/22 10:59 Family History Brother Kidney disease Unknown Kidney disease Unknown Kidney disease Surgical History History of tonsillectomy Social History household members: none current occupational status: employed current occupation: works at the [employer] Smoking Status: Current every day smoker tobacco type: cigars per week: 35 Tobacco: How many years used: 37 Electronic Cigarette Use: not used alcohol intake: former year quit: 2004 substance use type: marijuana what type of physical activity do you participate in: none do you feel safe at home: Yes EXAM Physical Exam Const Vital Signs: 01/16/22 10:58 01/16/22 11:04 Temperature 97.9 F Temperature Source Temporal Pulse Rate 70 Respiratory Rate 16 Respiratory Effort Normal Non-Labored Respiratory Pattern Normal Blood Pressure 112/89 H Blood Pressure Mean 96 Pulse Ox 100 Oxygen Delivery Method Room Air MDM MDM MDM Narrative Medical decision making narrative: Karina Barrios percent on room air. Chest x-ray was obtained to look for pneumonia or pneumothorax. My interpretation of his chest x-ray shows no acute process, no infiltrate or pneumothorax. Respiratory swabs are negative for COVID, influenza, and RSV. At this point in time, I feel he can be discharged safely home with symptomatic treatment. He will drink plenty of oral fluids, take [id number] medications for his myalgias/viral syndrome. He was given a note to be off work today and tomorrow. He will follow-up with his primary care provider. Return instructions were reviewed. Disposition is discharged home in stable condition. Radiography Diagnostic Testing: Clinical Impression(s) from Imaging Studies Chest X-Ray 01/16/22 12:23 IMPRESSION: Hyperinflation. The lungs are clear. Electronically Signed: Evens Nugent MD at 12:59 EST , Discharge Plan Triage Chief Complaint: General Illness ED Provider: Hardik Healy Dx/Rx/DC Orders Clinical Impression: URI (upper respiratory infection), Viral syndrome Prescriptions: No Action ibuprofen 600 mg tablet 600 mg PO Q6H PRN PRN (Reason: fever or pain) Qty: 20 0RF Stand Alone Forms: ED Work / School Excuse Primary Care Provider: Nicolasa Machuca Referrals: Nicolasa Machuca MD [Primary Care Provider] - 1 Week if not improving Disposition Disposition: Home, Self Care
--- NOTE | 2022-01-16 12:23 | RAD_ITS ---
STUDY: X-RAY CHEST REASON FOR EXAM: Male, 61 years old. Shortness of breath TECHNIQUE: Single AP portable view of the chest. COMPARISON: Comparison is made with prior study 09/11/2021. FINDINGS: Hyperinflation. The lungs are clear. There is no demonstrated pleural abnormality. Normal size heart. Normal mediastinum and rachel. Normal visualized pulmonary arteries. Normal visualized aortic arch and descending thoracic aorta. Normal visualized thoracic spine. Normal visualized ribs, clavicles, and shoulders. There is no demonstrated abnormality of the visualized soft tissue structures of the upper abdomen. RAD/Chest 1 View (Portable) IMPRESSION: Hyperinflation. The lungs are clear. Electronically Signed: Evens Nugent MD at 12:59 EST ,
[2022-01-16 14:03] VITALS: PULSE 83; RESP 16; TEMP 36.6
== END 2022-01-16 14:05 | disposition home or self-care (01) ==
PROVIDERS: Emergency Provider Emergency Medicine; PCP Internal Medicine; Visit Provider Emergency Medicine
DX: B34.9 Viral infection, unspecified (principal); J06.9 Acute upper respiratory infection, unspecified; F17.290 Nicotine dependence, other tobacco product, uncomplicated; R07.81 Pleurodynia
CPT/HCPCS: 71045; 87428; 87807; 99282

== ENCOUNTER 2022-08-11 12:05 | Emergency (ER) | payer MEDICAID, SELFPAY ==
[2022-08-11 12:06] VITALS: BP 138/90; PULSE 66; RESP 14; TEMP 36.5; O2SAT 100; BMI 20.7
--- NOTE | 2022-08-11 13:01 | RAD_ITS ---
STUDY: X-RAY CHEST REASON FOR EXAM: Male, 61 years old. Wt loss and trouble swallowing. Smoker TECHNIQUE: PA and lateral views of the chest. COMPARISON: Comparison is made with prior study dated January 16, 2022. FINDINGS: There is hyperinflation of the lungs consistent with chronic obstructive lung disease (COPD). There is no demonstrated pleural abnormality. Normal size heart. Normal mediastinum and rachel. Normal visualized pulmonary arteries. Normal visualized aortic arch and descending thoracic aorta. Normal visualized thoracic spine. Normal visualized ribs, clavicles, and shoulders. There is no demonstrated abnormality of the visualized soft tissue structures of the upper abdomen. RAD/Chest PA and Lateral IMPRESSION: Hyperinflation. The lungs are clear. Electronically Signed: Evens Nugent MD at 13:30 EDT ,
--- NOTE | 2022-08-11 13:04 | EX.ED.DYSGE1 ---
HPI History of Present Illness Chief Complaint: Other, Pain/Inj Detail of Chief Complaint: Difficulty swallowing and uncomfortable. Informant: patient Onset/Context/Timing Onset: Weeks Context: Gradual Onset Timing: Continuous Current Severity: Mild Maximum Severity: Mild Narrative Narrative: 61-year-old male no seen past medical history. Patient has had difficulty swallowing the last 2 weeks. He is able to swallow but is uncomfortable at times he feels like he is choking. Denies any prior upper endoscopy. Denies any throat or esophageal surgery in the past. He is a smoker and has lost 10 to 15 pounds in the last 2 months. He denies any shortness of breath or hemoptysis. He denies any abdominal pain. Prior similar symptoms: Yes Recent Illness/Hospitalization: No PFSH PFSH Medical History COVID Home Medications ibuprofen 600 mg tablet 600 mg PO Q6H PRN PRN fever or pain #20 tabs 09/11/21 [Rx Last Taken Unknown] pantoprazole 40 mg tablet,delayed release (Protonix) 40 mg PO DAILY #30 tabs 08/11/22 [Rx Last Taken Unknown] Allergy/AdvReac Type Severity Reaction Status Date / Time morphine AdvReac Other Verified 08/11/22 12:07 Family History Brother Kidney disease Unknown Kidney disease Unknown Kidney disease Surgical History History of tonsillectomy Social History household members: none current occupational status: employed current occupation: works at [employer] Smoking Status: Current every day smoker tobacco type: cigars per week: 35 Tobacco: How many years used: 37 Electronic Cigarette Use: not used alcohol intake: former year quit: 2004 substance use type: marijuana what type of physical activity do you participate in: none do you feel safe at home: Yes ROS ROS ED ROS Narrative Difficulty swallowing. Weight loss. Review of Systems ROS Unobtainable: Denies due to encephalopathy Constitutional Constitutional ED: Denies chills or fever(s) Eyes Eyes: Denies blurry vision ENT ENT ED: Denies ear pain Cardiovascular Cardiovascular: Denies chest pain Respiratory/Chest Respiratory/Chest: Denies cough or dyspnea Gastrointestinal Gastrointestinal: Denies abdominal pain, constipation, diarrhea, melena, nausea or vomiting Genitourinary Genitourinary ED: Denies dysuria Musculoskeletal Musculoskeletal: Denies arthralgias Integumentary Denies abscess Neurologic Neurologic: Denies headache(s) Psychiatric Psychiatric: Denies anxiety Endocrine Endocrinology: Denies cold intolerance Hematologic/Lymphatic Hematologic/Lymphatic: Reports none Allergic/Immunologic Allergic/Immunologic ED: Denies mouth swelling or tongue swelling EXAM Physical Exam Narrative Exam Narrative: Well-appearing 61-year-old male. Vital signs stable afebrile. Pulse ox 100% on room air no hypoxia. He is in no distress. Lying in bed comfortably. HEENT exam unremarkable. Posterior pharynx normal. Moist mucous membranes. There is no masses. He has no stridor or drooling. I gave him a glass of water he is able to drink and swallow without any difficulty. Neck nontender. Trachea midline. No lymphadenopathy. No masses. Lungs clear to auscultation bilaterally. Heart regular rhythm rate about 65 no murmur. Chest wall nontender. Abdomen soft nontender. No peritoneal signs. Moving all 4 extremities. Nontender no edema. Neurologically is awake and alert with no focal motor deficits. Benign exam. Const Vital Signs: 08/11/22 12:06 08/11/22 12:59 Temperature 97.7 F L Temperature Source Temporal Pulse Rate 66 Respiratory Rate 14 Respiratory Effort Normal Non-Labored Respiratory Pattern Normal Blood Pressure 138/90 H Blood Pressure Mean 106 Pulse Ox 100 Oxygen Delivery Method Room Air Positive well nourished and well developed; Negative for obese, cachectic, contractures or unkempt General Appearance ED: well developed and NAD; Negative for unkempt, cachectic, contractures, cyanotic, diaphoretic or pallor Nutritional Appearance: Negative for cachectic or obese HEENT Reports moist mucous membranes; Denies dry mucous membranes Negative for trauma or tenderness Mouth ED: No dry mucous membranes Mouth: No dry mucous membranes Eyes PERRL and EOMs intact bilaterally General Eye ED: Negative for pale conjunctiva or scleral icterus Neck no lymphadenopathy, supple and no JVD General: Negative for tenderness Lymph Lymphatic: Negative for other Chest Wall inspection of chest normal and palpation of chest normal Chest: Negative for other Resp normal respiratory effort and clear to auscultation bilaterally Effort and Inspection: Negative for retractions Auscultation: Negative for rales, rhonchi or wheezes Cardio regular rate, regular rhythm, S1 normal heart sound, S2 normal heart sound and no murmurs Palpation: Negative for palpable S3 Rate: Negative for bradycardia Rhythm: Negative for abnormal rhythm GI normal to inspection, nondistended, normoactive bowel sounds, non-tender, non-distended and no masses Inspection: Negative for abdominal distention Auscultation: normoactive bowel sounds Palpation: soft; Negative for tender or guarding Rectal Exam: Negative for normal sphincter tone Bladder / Kidney Exam: No other Back/Spine no CVA tenderness General Back: Negative for CVA tenderness Cervical Spine: Negative for cervical spine tenderness Thoracic Spine / Upper Back: Negative for thoracic spinal tenderness Lumbar Spine / Lower Back: Negative for lumbar spinal tenderness Extremity normal to inspection General Extremety ED: Negative for edema or tenderness General Extremity: Negative for edema Neuro oriented x3 and CN's II-XII intact bilaterally Sensorium / Orientation: alert; Negative for orientation impaired, lethargic or stuporous Motor Exam: strength 5/5 throughout; Negative for general weakness Psych mental status grossly normal Appearance: Negative for unkempt Attitude: No agitated Mood & Affect: Negative for depressed, anxious or tearful Skin no rashes or lesions noted, no wounds and skin turgor normal General Skin Exam: elasticity normal; Negative for jaundice or pallor Lesions: No lesion noted Rashes: No rashes noted Trauma: Negative for abrasion Wounds: Negative for wounds noted MDM MDM MDM Narrative Medical decision making narrative: 1-year-old trouble swallowing and weight loss. Exam benign. He was able to swallow water without any difficulty. This may be from reflux, esophageal inflammation, possibly a stricture or mass. With the weight loss and him being a smoker I am obtaining a chest x-ray. He will be placed on Protonix for possible reflux and esophagitis and he will need to follow-up with possible upper endoscopy. Patient doing well at 1:20 PM. To be discharged home on Protonix. Outpatient follow-up if is not improving for possible upper endoscopy if he continues to have trouble swallowing and weight loss. History & Record Review Discussion w/independent historian: Patient Additional record(s) reviewed:: Prior inpatient record, Prior outpatient record, Prior ED visit and Prior labs Radiography Chest X-Ray - ED: 2 View, Read by ED Physician, Heart, Lungs, Mediastinum, Bony Structures, No Acute Disease and Chronic Changes Diagnostic Testing: Chest x-ray, 2 views AP and lateral, interpreted by myself shows no acute abnormality. Normal cardiac silhouette. Normal mediastinum. No masses. Discharge Plan Triage Chief Complaint: Other, Pain/Inj ED Provider: Galindo Quiñones Dx/Rx/DC Orders Clinical Impression: Esophagitis Instructions: Esophagitis Prescriptions: New pantoprazole [Protonix] 40 mg tablet,delayed release (DR/EC) 40 mg PO DAILY Qty: 30 0RF No Action ibuprofen 600 mg tablet 600 mg PO Q6H PRN PRN (Reason: fever or pain) Qty: 20 0RF Primary Care Provider: Nicolasa Machuca Referrals: aT Flores MD [Med Staff - Active Staff] - As soon as possible Nicolasa Machuca MD [Primary Care Provider] - Activity Restrictions/Additional Instructions: Chest x-ray was normal. You are placed on a so medication to decrease inflammation in your esophagus if it is from reflux of stomach acids. That medication is Protonix. Take it once daily. Follow-up with a doctor if this is not improving you will need upper endoscopy a scope to go down and look at your esophagus to see what is causing him trouble swallowing if it does not get better. Disposition Disposition: Home, Self Care
[2022-08-11 13:36] VITALS: RESP 17
== END 2022-08-11 13:35 | disposition home or self-care (01) ==
LOC: ED 13:30
PROVIDERS: Emergency Provider Emergency Medicine; Visit Provider Emergency Medicine
DX: K20.90 Esophagitis, unspecified without bleeding (principal); F17.290 Nicotine dependence, other tobacco product, uncomplicated
CPT/HCPCS: 71046; 99282

== ENCOUNTER 2022-09-10 07:40 | Emergency (ER) | payer MEDICAID, SELFPAY ==
[2022-09-10 07:41] VITALS: BP 142/131; PULSE 54; RESP 18; TEMP 36.4; O2SAT 97; BMI 19.9
--- NOTE | 2022-09-10 08:06 | CT_ITS ---
STUDY: CT SOFT TISSUE NECK WITH CONTRAST REASON FOR EXAM: Male, 61 years old. TROUBLE SWALLOWING RADIATION DOSAGE (If Supplied By Facility): CTDIvol = ( 12.24 ) mGy, DLP = ( 339.34 ) mGycm TECHNIQUE: The patient was scanned in a multi-detector CT scanner. High resolution transaxial imaging was performed following intravenous administration of IV 100mL Isovue-300. Sagittal and coronal images were reconstructed. Individualized dose optimization techniques were used for this CT. COMPARISON: None. FINDINGS: Normal bilateral parotid glands. Normal bilateral road monkey spaces. Normal bilateral parapharyngeal spaces. Normal bilateral carotid spaces. Normal bilateral sublingual and submandibular glands and spaces. Normal visualized nasopharynx. Normal retropharyngeal space. Normal perivertebral space. Normal visualized bilateral faucial tonsils. The visualized tongue, tongue base and oropharynx are normal. The visualized cervical lymph nodes (levels I-) are within normal size limits, and maintain normal morphology. There is no demonstrated solid or cystic mass lesion. There is no abnormal contrast enhancement. Normal epiglottis, bilateral vallecula and hypopharynx. The pre-epiglottic and paraglottic adipose spaces are normal. Normal visualized bilateral piriform sinuses, aryepiglottic folds, vocal cords, and arytenoid-cricoid articulations. Normal subglottic trachea. Normal bilateral lobes of the thyroid gland. Normal visualized pulmonary apices. Normal visualized paranasal sinuses. There is multilevel degenerative changes of the cervical spine. CT/Soft Tissue Neck WITH Contrast IMPRESSION: Normal enhanced CT examination of the soft tissues of the neck. Electronically Signed: Evens Nugent MD at 9:16 EDT ,
[2022-09-10 08:21] LABS: Absolute Lymphocyte Count 1.55 X10^3/uL (0.83-4.51); Basophil# 0.04 X10^3/uL; Eosinophil# 0.21 X10^3/uL; Hemoglobin 14.5 g/dL (13.0-16.5); Lymphocyte # 1.55 X10^3/ul (0.83-4.51); Lymphocyte % 36.8 % (19-41); Mean Corp Hgb Conc 33.7 g/dL (32-36); Mean Corpuscular Volume 88.8 fL (80-94); Mean Platelet Vol. 9.3 fl (6.2-12.0); Monocyte# 0.36 X10^3/uL; Monocyte% 8.6 % (0-10); NRBC Flagged by Analyzer 0 % (0-5); Neutrophil # 2.04 X10^3/uL (2.7-7.7); Neutrophil % 48.4 % (47-70); Platelet Count 278 K/mm3 (150-450); RBC Distribution Width CV 14.7 % (11.6-14.6); RBC Distribution Width SD 47.8 fl (35.1-43.9); Red Blood Count 4.84 M/mm3 (4.6-6.2); White Blood Count 4.2 K/mm3 (4.4-11.0)
[2022-09-10] MEDS: 0.9% Normal Saline 1,000 ML 125 ML IV (08:32)
[2022-09-10 08:37] LABS: AST(SGOT) 16 U/L (15-37); Alanine Aminotransfer ALT/SGPT 17 U/L (16-61); Albumin, Serum 3.1 g/dL (3.2-5.0); Alkaline Phosphatase 71 U/L (45-117); Anion Gap 1 (5-15); BUN 12 mg/dL (7-18); BUN/Creat Ratio 10.6 RATIO (10-20); Bilirubin, Direct 0.09 mg/dL (0.00-0.30); Chloride 107 mmol/L (98-107); Creatinine, Serum 1.13 mg/dL (0.70-1.30); EST Glomerular Filtration Rate 70 mL/min (>60); Est Glom Filt Rate - Afr Amer 85 mL/min (>60); Estimated Creatinine Clearance 59.46 ml/min; Globulin 4.2 g/dL (2.2-4.2); Glucose 103 mg/dL (74-106); Potassium 4.2 mmol/L (3.5-5.1); Protein, Total 7.3 g/dL (6.4-8.2); Sodium Level 140 mmol/L (136-145)
--- NOTE | 2022-09-10 08:54 | EDS_ITS ---
HPI History of Present Illness Chief Complaint: Other, Pain/Inj Informant: patient Narrative Narrative: Patient is a 61-year-old male with history of depression and tobacco use presenting with weight loss and difficulty swallowing. Patient states for the past 6 weeks or so every time he tries to swallow any foods he has to spit it back up. He states he gets stuck right about the level of his [employer] apple. He states he is only been able to have protein shakes, applesauce and yogurt. States he lost about 20 pounds which has been unintentional. He does have associate abdominal pain but states it feels just like he is really hungry. States sometimes when he coughs up there is some phlegm. He is able to tolerate a soft diet. He has an appointment to see ENT this coming Thursday but does not feel like he can wait that long. Denies any shortness of breath or difficulty breathing. Denies any urinary symptoms. Has had decrease in his bowel movements but denies any other change in that. PFSH [facility] Medical History COVID Home Medications ibuprofen 600 mg tablet 600 mg PO Q6H PRN PRN fever or pain #20 tabs 09/11/21 [Rx Last Taken Unknown] pantoprazole 40 mg tablet,delayed release (Protonix) 40 mg PO DAILY #30 tabs 08/11/22 [Rx Last Taken Unknown] Allergy/AdvReac Type Severity Reaction Status Date / Time morphine AdvReac Other Verified 08/11/22 12:07 Family History Brother Kidney disease Unknown Kidney disease Unknown Kidney disease Surgical History History of tonsillectomy Social History household members: none current occupational status: employed current occupation: works at the [employer] Smoking Status: Current every day smoker tobacco type: cigars per week: 35 Tobacco: How many years used: 37 Electronic Cigarette Use: not used alcohol intake: former year quit: 2004 substance use type: marijuana what type of physical activity do you participate in: none do you feel safe at home: Yes ROS ROS ED Constitutional Constitutional ED: Reports sweats and weight loss; Denies chills or fever(s) Eyes Eyes: Denies change in vision ENT ENT ED: Reports other Details: difficulty swallowing ; Denies ear pain, rhinorrhea or sore throat Cardiovascular Cardiovascular: Denies chest pain or palpitations Respiratory/Chest Respiratory/Chest: Denies cough Gastrointestinal Gastrointestinal: Reports abdominal pain and other Details: hunger pains ; Denies nausea or vomiting Musculoskeletal Musculoskeletal: Denies arthralgias or myalgias Integumentary Denies rash Neurologic Neurologic: Reports weakness; Denies headache(s) EXAM Physical Exam Const Vital Signs: 09/10/22 07:41 09/10/22 07:42 Temperature 97.6 F L Temperature Source Temporal Pulse Rate 54 L Respiratory Rate 18 Respiratory Pattern Normal Blood Pressure 142/131 H Blood Pressure Mean 134 Pulse Ox 97 Oxygen Delivery Method Room Air Positive well developed Constitutional Narrative: Thin General Appearance ED: well developed and NAD HEENT Reports dry mucous membranes HEENT Narrative: Normal oropharynx, normal phonation, handling secretions without difficulty Mouth ED: Yes dry mucous membranes Mouth: dry mucous membranes Eyes PERRL and EOMs intact bilaterally Neck supple Resp normal respiratory effort and clear to auscultation bilaterally Cardio regular rate, regular rhythm and no murmurs GI normal to inspection, nondistended, normoactive bowel sounds and non-tender Extremity normal to inspection Neuro oriented x3 Sensorium / Orientation: alert Motor Exam: Negative for general weakness Psych mental status grossly normal MDM MDM MDM Narrative Medical decision making narrative: Patient is evaluated for continued difficulty swallowing food. He is able to tolerate a soft diet. He is losing weight. He does have a follow-up appointment with surgery next week. He has been taking Protonix. He is previously evaluated in our emergency room for the same complaint. He states he is lost weight because not able to eat and he does feel hunger. He really points to his throat as where he feels like he cannot swallow past. His abdomen is soft and nontender. Clinically does not appear dehydrated. CBC and CMP obtained which showed largely normal labs no findings of electrolyte abnormality, anemia, MAHOGANY and he has a normal protein. Albumin is mildly low at 3.1. I do not think he meets criteria for malnutrition requiring admission at this time. Especially is he still able to drink a protein shake/boost. I will obtain a CT soft tissue neck to look for any large mass or obstructive process. This is negative for any acute process. Patient is encouraged to continue his PPI and follow-up with EN as well as surgery. At this time I do not think he requires admission to the hospital however I do think outpatient fo llow-up is very important. Discussed that he should look at his calorie intake for the day and make sure he is getting 2000 alexandra a day even if it is all liquid. Patient is given return precautions. Discharged home in stable condition. Is given a work note for today per his request. Differential diagnosis: Esophageal impaction?chronicity and able to tolerate fluids as well as location of this area does not make sense, esophageal stricture, oral pharyngeal mass, GERD Lab Data Attestation: I reviewed the patient's lab results. Labs: Laboratory Results - last 24 hr 09/10/22 08:10 WBC 4.2 L RBC 4.84 Hgb 14.5 Hct 43.0 MCV 88.8 MCH 30.0 MCHC 33.7 RDW Std Deviation 47.8 H RDW Coeff of Sheldon 14.7 H Plt Count 278 MPV 9.3 Immature Gran % (Auto) 0.200 Neut % (Auto) 48.4 Lymph % (Auto) 36.8 [place] % (Auto) 8.6 Eos % (Auto) 5.0 Baso % (Auto) 1.0 Absolute Neuts (auto) 2.0 Absolute Lymphs (auto) 1.55 Nucleated RBC % 0 Sodium 140 Potassium 4.2 Chloride 107 Carbon Dioxide 32.0 Anion Gap 1 L BUN 12 Creatinine 1.13 Estim Creat Clear Calc 59.46 Est GFR (MDRD) Af Amer 85 Est GFR (MDRD) Non-Af 70 BUN/Creatinine Ratio 10.6 Glucose 103 Calcium 9.0 Total Bilirubin 0.30 Direct Bilirubin 0.09 AST 16 ALT 17 Alkaline Phosphatase 71 Total Protein 7.3 Albumin 3.1 L Globulin 4.2 Radiography Diagnostic Testing: Clinical Impression(s) from Imaging Studies Soft Tissue Neck CT 09/10/22 08:06 IMPRESSION: Normal enhanced CT examination of the soft tissues of the neck. Electronically Signed: Evens Nugent MD at 9:16 EDT , Discharge Plan Triage Chief Complaint: Other, Pain/Inj ED Provider: Magali Urban Dx/Rx/DC Orders Clinical Impression: Difficulty swallowing solids Instructions: ED Soft Diet, ED Dysphagia (Adult) Prescriptions: No Action ibuprofen 600 mg tablet 600 mg PO Q6H PRN PRN (Reason: fever or pain) Qty: 20 0RF pantoprazole [Protonix] 40 mg tablet,delayed release (DR/EC) 40 mg PO DAILY Qty: 30 0RF Stand Alone Forms: ED Work / School Excuse Primary Care Provider: Care Physician,No Primary Referrals: Lino Pfeiffer MD [Med Staff - Active Staff] - As Needed Care Physician,No Primary [Primary Care Provider] - Activity Restrictions/Additional Instructions: Please keep your scheduled appointment with surgery for evaluation of your swallowing difficulties. You have also given referral for ENT in case this is coming from above the vocal cords as they can also do their own type of scope. Disposition Disposition: Home, Self Care Discharge Date/Time: 09/10/22 10:21
== END 2022-09-10 10:21 | disposition home or self-care (01) ==
PROVIDERS: Emergency Provider Emergency Medicine; Visit Provider Emergency Medicine
DX: R13.10 Dysphagia, unspecified (principal); F17.290 Nicotine dependence, other tobacco product, uncomplicated
CPT/HCPCS: 70491; 80048; 80076; 85025; 96360; 96361; 99282; J7030; Q9967; A4216

== ENCOUNTER 2023-06-16 15:37 | Emergency (ER) | payer MEDICAID, SELFPAY ==
[2023-06-16 15:38] VITALS: BP 124/96; PULSE 79; RESP 17; TEMP 36.4; O2SAT 100; BMI 18.5
--- NOTE | 2023-06-16 16:15 | EX.ED.GUMALE ---
HPI History of Present Illness Chief Complaint: Male Pain/Injury Informant: patient Pain Onset: Days (2) Context: Gradual Onset Timing: Continuous Worsened by: Nothing Relieved by: Nothing Narrative Narrative: Patient presents with testicular pain that has been getting worse over the past 2 days. Patient states it feels like aching in his right testicle. Patient states it radiates into his left testicle at times. Patient admits to decreased appetite. Patient states nothing makes his pain better and nothing makes it worse. Patient denies any discharge or drainage. Patient denies any fevers or chills. Patient denies any nausea or vomiting. Patient denies any dysuria or hematuria. [facility] Medical History COVID Home Medications ibuprofen 600 mg tablet 600 mg PO Q6H PRN PRN fever or pain #20 tabs 09/11/21 [Rx Last Taken Unknown] pantoprazole 40 mg tablet,delayed release (Protonix) 40 mg PO DAILY #30 tabs 08/11/22 [Rx Last Taken Unknown] ciprofloxacin HCl 500 mg tablet 500 mg PO BID #14 TABLETS 06/16/23 [Rx Last Taken Unknown] Allergy/AdvReac Type Severity Reaction Status Date / Time morphine AdvReac Other Verified 08/11/22 12:07 Family History Brother Kidney disease Unknown Kidney disease Unknown Kidney disease Surgical History History of tonsillectomy Social History household members: none current occupational status: employed current occupation: works at the [employer] Smoking Status: Current every day smoker tobacco type: cigars per week: 35 Tobacco: How many years used: 37 Electronic Cigarette Use: not used alcohol intake: former year quit: 2004 substance use type: marijuana what type of physical activity do you participate in: none do you feel safe at home: Yes ROS ROS ED Constitutional Constitutional ED: Denies chills or fever(s) Eyes Eyes: Denies blurry vision or change in vision ENT ENT ED: Reports rhinorrhea; Denies sore throat Cardiovascular Cardiovascular: Denies chest pain or palpitations Respiratory/Chest Respiratory/Chest: Denies cough or dyspnea Gastrointestinal Gastrointestinal: Reports abdominal pain; Denies nausea or vomiting Genitourinary Genitourinary ED: Denies dysuria or hematuria Musculoskeletal Musculoskeletal: Denies back pain or neck pain Integumentary Denies abscess or rash Neurologic Neurologic: Denies headache(s) or weakness Allergic/Immunologic Allergic/Immunologic ED: Denies mouth swelling or urticaria EXAM Physical Exam Const Vital Signs: 06/16/23 15:38 06/16/23 17:37 06/16/23 19:00 Temperature 97.6 F L 98.4 F Temperature Source Temporal Temporal Pulse Rate 79 78 78 Respiratory Rate 17 16 16 Blood Pressure 124/96 H 142/76 H Blood Pressure Mean 105 98 Pulse Ox 100 99 98 Oxygen Delivery Method Room Air Room Air 06/16/23 21:00 Temperature 97 F L Temperature Source Temporal Pulse Rate 66 Respiratory Rate 16 Blood Pressure 138/64 H Blood Pressure Mean 88 Pulse Ox 95 Oxygen Delivery Method Room Air Positive well nourished and well developed General Appearance ED: well developed and NAD HEENT Reports moist mucous membranes normocephalic and atraumatic Neck supple and no JVD Resp normal respiratory effort and clear to auscultation bilaterally Cardio regular rate and regular rhythm GI non-distended Palpation: soft and tender epigastric, LLQ, RLQ, LUQ, RUQ, periumbilical and suprapubic; Negative for guarding Narrative: There is tenderness over the epididymis of the testicles bilaterally. There is a vertical lie of the testes bilaterally. There is no edema of the testicles. There is no inguinal hernia palpated. There are no external penile lesions noted. Neuro oriented x3, CN's II-XII intact bilaterally, moves all extremities, no focal motor deficits and no sensory deficits noted Sensorium / Orientation: alert Motor Exam: strength 5/5 throughout Psych mental status grossly normal MDM MDM MDM Narrative Medical decision making narrative: Differential diagnosis includes gastritis, pancreatitis, gastroenteritis, peptic ulcer disease, urinary tract infection, pyelonephritis, epididymitis, and orchitis. CBC will be obtained to assess for leukocytosis and anemia. Basic metabolic profile will be obtained to assess for electrolyte abnormality and renal function. Urinalysis will be obtained to assess for urinary tract infection and hematuria. Lipase will be obtained to assess for pancreatitis. Lab Data Attestation: I reviewed the patient's lab results. Lab results narrative: CBC was reviewed and was within normal limits. Basic metabolic profile was reviewed and was essentially within normal limits. Lipase was reviewed and was normal at 31. Urinalysis was reviewed. Leukocyte esterase was 500 with 10-25 white blood cells. There are rare bacteria noted. Labs: Laboratory Results - last 24 hr 06/16/23 06/16/23 17:05 20:32 WBC 4.5 RBC 5.29 Hgb 15.5 Hct 45.4 MCV 85.8 MCH 29.3 MCHC 34.1 RDW Std Deviation 47.3 H RDW Coeff of Sheldon 15.0 H Plt Count 268 MPV 9.5 Immature Gran % (Auto) 0.200 Neut % (Auto) 36.8 L Lymph % (Auto) 45.5 H [place] % (Auto) 10.4 H Eos % (Auto) 6.0 H Baso % (Auto) 1.1 H Absolute Neuts (auto) 1.7 L Absolute Lymphs (auto) 2.05 Nucleated RBC % 0 Sodium 139 Potassium 3.7 Chloride 105 Carbon Dioxide 31.0 Anion Gap 3 L BUN 10 Creatinine 1.16 Estim Creat Clear Calc 53.16 Est GFR (MDRD) Af Amer 82 Est GFR (MDRD) Non-Af 68 BUN/Creatinine Ratio 8.6 L Glucose 54 L Calcium 9.1 Lipase 31 Urine Color Yellow Urine Clarity Sl. Cloudy Urine pH 6.5 Ur Specific [place] 1.010 Urine Protein Negative Urine Glucose (UA) Normal Urine Ketones 5 H Urine Occult Blood 10 H Urine Nitrite Negative Urine Bilirubin Negative Urine Urobilinogen 4 H Ur Leukocyte Esterase 500 H Urine RBC 0-5 SEEN Urine WBC 10-25 SEEN Ur Squamous Epith Cells 0-5 SEEN Amorphous Sediment 1+ URATE Urine Bacteria RARE Urine Mucus 0 SEEN Treatment and Re-Evaluation Narrative: Patient was given IV fluids. Urine culture was ordered. Patient was given a dose of Cipro here. Patient was given a prescription for Cipro. Patient was instructed to follow-up with his primary care physician in 5 to 7 days. Patient was advised that this could be epididymitis from a urinary tract infection. Patient understood and was agreeable with the plan. All questions were answered. Discharge Plan Triage Chief Complaint: Male Pain/Injury ED Provider: Vinod Gomez Dx/Rx/DC Orders Clinical Impression: Urinary tract infection, Epididymitis Instructions: ED Epididymitis, ED Bladder Infection, Male (Adult) Prescriptions: New ciprofloxacin HCl [ciprofloxacin HCl] 500 mg tablet 500 mg PO BID Qty: 14 0RF No Action ibuprofen 600 mg tablet 600 mg PO Q6H PRN PRN (Reason: fever or pain) Qty: 20 0RF pantoprazole [Protonix] 40 mg tablet,delayed release (DR/EC) 40 mg PO DAILY Qty: 30 0RF Primary Care Provider: Care Physician,No Primary Referrals: Libby Guadalupe MD [Med Staff - Sanitation Worker] - 5-7 Days Care Physician,No Primary [Primary Care Provider] - Disposition Disposition: Home, Self Care
[2023-06-16 17:16] LABS: Absolute Lymphocyte Count 2.05 X10^3/uL (0.83-4.51); Absolute Neutrophil Count 1.7 X10^3/uL (2.0-7.7); Basophil# 0.05 X10^3/uL; Basophil% 1.1 % (0-1); Eosinophil# 0.27 X10^3/uL; Hematocrit 45.4 % (40-54); Hemoglobin 15.5 g/dL (13.0-16.5); Lymphocyte # 2.05 X10^3/ul (0.83-4.51); Lymphocyte % 45.5 % (19-41); Mean Corp Hgb Conc 34.1 g/dL (32-36); Mean Corpuscular Hgb 29.3 pg (27.0-32.0); Mean Corpuscular Volume 85.8 fL (80-94); Mean Platelet Vol. 9.5 fl (6.2-12.0); Monocyte# 0.47 X10^3/uL; Monocyte% 10.4 % (0-10); NRBC Flagged by Analyzer 0 % (0-5); Neutrophil # 1.66 X10^3/uL (2.7-7.7); Neutrophil % 36.8 % (47-70); Platelet Count 268 K/mm3 (150-450); RBC Distribution Width SD 47.3 fl (35.1-43.9); Red Blood Count 5.29 M/mm3 (4.6-6.2); White Blood Count 4.5 K/mm3 (4.4-11.0)
[2023-06-16] MEDS: 0.9% Normal Saline (1000mL) 1,000 ML 1000 ML IV (17:17)
[2023-06-16 17:30] LABS: Anion Gap 3 (5-15); BUN 10 mg/dL (7-18); BUN/Creat Ratio 8.6 RATIO (10-20); Calcium,Total 9.1 mg/dL (8.5-10.1); Chloride 105 mmol/L (98-107); Creatinine, Serum 1.16 mg/dL (0.70-1.30); EST Glomerular Filtration Rate 68 mL/min (>60); Est Glom Filt Rate - Afr Amer 82 mL/min (>60); Estimated Creatinine Clearance 53.16 ml/min; Glucose 54 mg/dL (74-106); Lipase 31 U/L (13-75); Potassium 3.7 mmol/L (3.5-5.1); Sodium Level 139 mmol/L (136-145)
[2023-06-16 17:37] VITALS: BP 142/76; PULSE 78; RESP 16; O2SAT 99
[2023-06-16 19:00] VITALS: PULSE 78; RESP 16; TEMP 36.9; O2SAT 98
[2023-06-16 20:36] LABS: Mucous, Urine 0 SEEN /hpf (<or=2+)
[2023-06-16 20:55] LABS: Color, Urine Yellow (Yellow); Glucose, Dipstick Normal (Normal); Ketone-Dipstick 5 mg/dl (Negative); Leukocyte Esterase-Dipstick 500 /ul (Negative); Nitrite-Dipstick Negative (Negative); Occult Blood-Urine 10 /ul (Negative); Protein-Dipstick Negative (Negative); Urine Bilirubin Dipstick Negative (Negative); Urine Clarity Sl. Cloudy (Clear); Urine Urobilinogen 4 mg/dl (Normal); Urine pH 6.5 (5.0 - 8.0)
[2023-06-16 21:00] VITALS: BP 138/64; PULSE 66; RESP 16; TEMP 36.1; O2SAT 95
[2023-06-16 21:06] LABS: Red Blood Cells-Urine 0-5 SEEN /hpf (0-5); Squamous Epithelial Cells - UA 0-5 SEEN /hpf (0-5); White Blood Cells 10-25 SEEN /hpf (0-5)
[2023-06-16 21:07] LABS: Amorphous Sediment 1+ URATE; Bacteria RARE /hpf (None Seen)
[2023-06-16] MEDS: Ciprofloxacin 500 MG Tablet PO (21:39)
== END 2023-06-16 21:46 | disposition home or self-care (01) ==
PROVIDERS: Emergency Provider Emergency Medicine; Visit Provider Emergency Medicine
DX: N39.0 Urinary tract infection, site not specified (principal); F17.290 Nicotine dependence, other tobacco product, uncomplicated; N45.1 Epididymitis
CPT/HCPCS: 80048; 81001; 83690; 85025; 96360; 96361; 99283; J7030

== ENCOUNTER 2023-08-12 11:45 | Emergency (ER) | payer MEDICAID, SELFPAY ==
[2023-08-12 11:45] VITALS: BP 137/100; PULSE 77; RESP 16; TEMP 35.8; O2SAT 97; BMI 17.4
--- NOTE | 2023-08-12 13:20 | CT_ITS ---
INDICATION: pain, difficulty swallowing EXAMINATION: CT NECK - CT Soft Tissue Neck W/O Contrast Injection TECHNIQUE: Multiple axial images were obtained of the neck. The protocol utilizes one or more of the following dose reduction techniques: automated exposure control, adjustment of mA and/or kV according to patient size,and/or use of iterative reconstruction technique. IV Contrast dosage and agent: None. RADIATION DOSAGE (If Supplied By Facility): CTDIvol = ( 17.31 ) mGy, DLP = ( 551.13 ) mGycm COMPARISON: Prior study dated: 09/10/2022 FINDINGS: NASOPHARYNX: Unremarkable. SUPRAHYOID NECK: Unremarkable oropharynx, oral cavity, parapharyngeal space, and retropharyngeal space. INFRAHYOID NECK: Unremarkable larynx, hypopharynx, and supraglottis. THYROID: No focal lesions. SALIVARY GLANDS: Unremarkable. LYMPH NODES: No cervical or supraclavicular lymphadenopathy. VASCULAR STRUCTURES: Unremarkable. VISUALIZED PORTIONS OF THE ORBITS, PARANASAL SINUSES, MASTOID AIR CELLS AND SKULL BASE: Unremarkable. BONES: Degenerative changes of the spine. THORACIC INLET: Clear lung apices. CT/Soft Tissue Neck without Contr IMPRESSION: Essentially unremarkable CT neck without contrast. Electronically Signed: Juma Oates MD at 14:26 EDT ,
--- NOTE | 2023-08-12 13:22 | EDS_ITS ---
HPI History of Present Illness Chief Complaint: General Illness Informant: patient Onset/Context/Timing Onset: Days Narrative Narrative: Patient presents with 1 week history of difficulty swallowing. He states he is able to drink water and was able to drink a protein shake today. He feels like things get caught in his throat and he points to the area of the Armani's apple. He states a couple days ago he had to pull a piece of chicken out of his throat. He had similar symptoms last fall and was scoped by who he believes was ENT at the outpatient surgery center. I am unable to review those records. Patient states that he had been doing well for about 6 months but now symptoms have recurred. He is concerned that he is weak and is losing weight because he cannot keep up with his nutrition needs. Patient reports a subjective fever but did not measure his temperature at home. [facility] Medical History COVID Home Medications ?Medication ?Instructions ?Recorded ?Last Taken ?Type ibuprofen 600 mg tablet 600 mg PO Q6H PRN PRN fever or 09/11/21 Unknown Rx pain #20 tabs pantoprazole 40 mg tablet,delayed 40 mg PO DAILY #30 tabs 08/11/22 Unknown Rx release (Protonix) ciprofloxacin HCl 500 mg tablet 500 mg PO BID #14 TABLETS 06/16/23 Unknown Rx pantoprazole 40 mg tablet,delayed 40 mg PO DAILY #30 tabs 08/12/23 Unknown Rx release (Protonix) Allergy/AdvReac Type Severity Reaction Status Date / Time morphine AdvReac Other Verified 08/12/23 11:45 Family History Brother Kidney disease Unknown Kidney disease Unknown Kidney disease Surgical History History of tonsillectomy Social History household members: none current occupational status: employed current occupation: works at the [employer] Smoking Status: Current every day smoker tobacco type: cigars per week: 35 Tobacco: How many years used: 37 Electronic Cigarette Use: not used alcohol intake: former year quit: 2005 substance use type: marijuana what type of physical activity do you participate in: none do you feel safe at home: Yes ROS ROS ED Constitutional Constitutional ED: Denies chills or fever(s) Eyes Eyes: Denies discharge from eye(s) ENT ENT ED: Reports sore throat; Denies discharge from eye(s) or rhinorrhea Cardiovascular Cardiovascular: Denies chest pain Respiratory/Chest Respiratory/Chest: Denies cough or dyspnea Gastrointestinal Gastrointestinal: Denies abdominal pain, nausea or vomiting Genitourinary Genitourinary ED: Denies dysuria Musculoskeletal Musculoskeletal: Denies back pain or extremity pain Integumentary Denies Abrasions or rash Neurologic Neurologic: Denies headache(s) or weakness Psychiatric Psychiatric: Denies anxiety or depression Allergic/Immunologic Allergic/Immunologic ED: Denies lip swelling or urticaria EXAM Physical Exam Narrative Exam Narrative: Patient speaks with a strong voice and is tolerating secretions well. Const Vital Signs: 08/12/23 11:45 08/12/23 13:45 08/12/23 13:53 Temperature 96.4 F L Temperature Source Temporal Pulse Rate 77 59 L Respiratory Rate 16 16 Respiratory Pattern Normal Blood Pressure 137/100 H 120/74 Blood Pressure Mean 112 89 Pulse Ox 97 99 Oxygen Delivery Method Room Air Positive well nourished and well developed General Appearance ED: well developed HEENT Reports dry mucous membranes Mouth ED: Yes dry mucous membranes Mouth: dry mucous membranes Eyes EOMs intact bilaterally Chest Wall inspection of chest normal and palpation of chest normal Resp normal respiratory effort and clear to auscultation bilaterally Cardio regular rate and regular rhythm GI non-tender Palpation: soft Neuro oriented x3 and no sensory deficits noted Motor Exam: strength 5/5 throughout Psych mental status grossly normal Skin no rashes or lesions noted MDM MDM MDM Narrative Medical decision making narrative: Patient's prior visits were reviewed. He was here on 2 separate occasions last fall with similar symptoms. I am not able to review the surgical notes from ENT. IV line will be established. Labwork obtained to evaluate for leukocytosis, anemia, and electrolyte derangement. Patient received IV fluids for hydration. Chest x-ray along with CT of the neck will be obtained to evaluate for any gross strictures or compression. History & Record Review Discussion w/independent historian: Patient Additional record(s) reviewed:: Prior ED visit and Prior labs Lab Data Attestation: I reviewed the patient's lab results. Labs: Laboratory Results - last 24 hr 08/12/23 13:50 WBC 4.7 RBC 5.27 Hgb 15.7 Hct 45.8 MCV 86.9 MCH 29.8 MCHC 34.3 RDW Std Deviation 47.9 H RDW Coeff of Sheldon 15.2 H Plt Count 299 MPV 9.8 Immature Gran % (Auto) 0.200 Neut % (Auto) 52.7 Lymph % (Auto) 32.9 [place] % (Auto) 9.2 Eos % (Auto) 4.1 Baso % (Auto) 0.9 Absolute Neuts (auto) 2.5 Absolute Lymphs (auto) 1.53 Nucleated RBC % 0 Sodium 137 Potassium 3.8 Chloride 102 Carbon Dioxide 30.0 Anion Gap 5 BUN 16 Creatinine 1.34 H Estim Creat Clear Calc 43.35 Est GFR (MDRD) Af Amer 69 Est GFR (MDRD) Non-Af 57 L BUN/Creatinine Ratio 11.9 Glucose 84 Calcium 9.5 Total Bilirubin 0.60 Direct Bilirubin 0.16 AST 19 ALT 23 Alkaline Phosphatase 88 Total Protein 8.3 H Albumin 3.4 Globulin 4.9 H Radiography Diagnostic Testing: Clinical Impression(s) from Imaging Studies Soft Tissue Neck CT 08/12/23 13:20 IMPRESSION: Essentially unremarkable CT neck without contrast. Electronically Signed: Juma Oates MD at 14:26 EDT , Chest X-Ray 08/12/23 14:08 IMPRESSION: No radiographic evidence of acute cardiopulmonary disease. Electronically Signed: Juma Oates MD at 14:18 EDT , Treatment and Re-Evaluation :: Patient given IV fluids along with a dose of Protonix. CBC was normal white count 4.7 with a hemoglobin of 15.7. Normal differential. Chemistry studies significant for a creatinine of 1.34. Previous creatinine was 1.16. LFTs are unremarkable. Chest x-ray per my interpretation was chronic changes. Radiology interpretation reviewed and agrees. CT of the soft tissue neck reveals no acute findings. On repeat evaluation patient does feel improved after Protonix and IV fluids. I will write him a prescription for Protonix at home. He will continue fluids and protein shakes to try to maintain his calorie intake. He has an appointment scheduled for ENT visit already. Return instructions provided. Discharge Plan Triage Chief Complaint: General Illness ED Provider: La Pratt Dx/Rx/DC Orders Clinical Impression: Dysphagia, Esophagitis Instructions: Esophagitis, ED Dysphagia (Adult) Prescriptions: New pantoprazole [Protonix] 40 mg tablet,delayed release (DR/EC) 40 mg PO DAILY Qty: 30 0RF No Action ibuprofen 600 mg tablet 600 mg PO Q6H PRN PRN (Reason: fever or pain) Qty: 20 0RF pantoprazole [Protonix] 40 mg tablet,delayed release (DR/EC) 40 mg PO DAILY Qty: 30 0RF ciprofloxacin HCl [ciprofloxacin HCl] 500 mg tablet 500 mg PO BID Qty: 14 0RF Primary Care Provider: Care Physician,No Primary Referrals: Care Physician,No Primary [Primary Care Provider] - Print Language: Tajik Disposition Disposition: Home, Self Care
[2023-08-12 13:45] VITALS: BP 120/74; PULSE 59; RESP 16; O2SAT 99
[2023-08-12] MEDS: 0.9% Normal Saline (1000mL) 1,000 ML 1000 ML IV (13:45)
[2023-08-12 14:00] LABS: Absolute Lymphocyte Count 1.53 X10^3/uL (0.83-4.51); Absolute Neutrophil Count 2.5 X10^3/uL (2.0-7.7); Basophil# 0.04 X10^3/uL; Basophil% 0.9 % (0-1); Eosinophil# 0.19 X10^3/uL; Eosinophils% 4.1 % (0-5); Hematocrit 45.8 % (40-54); Hemoglobin 15.7 g/dL (13.0-16.5); Lymphocyte # 1.53 X10^3/ul (0.83-4.51); Lymphocyte % 32.9 % (19-41); Mean Corp Hgb Conc 34.3 g/dL (32-36); Mean Corpuscular Hgb 29.8 pg (27.0-32.0); Mean Corpuscular Volume 86.9 fL (80-94); Mean Platelet Vol. 9.8 fl (6.2-12.0); Monocyte# 0.43 X10^3/uL; Monocyte% 9.2 % (0-10); NRBC Flagged by Analyzer 0 % (0-5); Neutrophil # 2.45 X10^3/uL (2.7-7.7); Neutrophil % 52.7 % (47-70); Platelet Count 299 K/mm3 (150-450); RBC Distribution Width CV 15.2 % (11.6-14.6); RBC Distribution Width SD 47.9 fl (35.1-43.9); Red Blood Count 5.27 M/mm3 (4.6-6.2); White Blood Count 4.7 K/mm3 (4.4-11.0)
--- NOTE | 2023-08-12 14:08 | RAD_ITS ---
INDICATION: diff swallowing EXAMINATION/TECHNIQUE: X-RAY - XR Chest 2 Views COMPARISON: No relevant prior comparison study available FINDINGS: LINES/DEVICES: None. LUNGS: No consolidation, edema or effusion. No pneumothorax. MEDIASTINUM AND CARDIOVASCULAR STRUCTURES: Cardiac silhouette not enlarged. Central airways and mediastinal contour are unremarkable. BONES AND SOFT TISSUES: Unremarkable. RAD/Chest PA and Lateral IMPRESSION: No radiographic evidence of acute cardiopulmonary disease. Electronically Signed: Juma Oates MD at 14:18 EDT ,
[2023-08-12 14:16] LABS: AST(SGOT) 19 U/L (15-37); Alanine Aminotransfer ALT/SGPT 23 U/L (16-61); Albumin, Serum 3.4 g/dL (3.2-5.0); Alkaline Phosphatase 88 U/L (45-117); Anion Gap 5 (5-15); BUN 16 mg/dL (7-18); BUN/Creat Ratio 11.9 RATIO (10-20); Bilirubin, Direct 0.16 mg/dL (0.00-0.30); Calcium,Total 9.5 mg/dL (8.5-10.1); Chloride 102 mmol/L (98-107); Creatinine, Serum 1.34 mg/dL (0.70-1.30); EST Glomerular Filtration Rate 57 mL/min (>60); Est Glom Filt Rate - Afr Amer 69 mL/min (>60); Estimated Creatinine Clearance 43.35 ml/min; Globulin 4.9 g/dL (2.2-4.2); Glucose 84 mg/dL (74-106); Potassium 3.8 mmol/L (3.5-5.1); Protein, Total 8.3 g/dL (6.4-8.2); Sodium Level 137 mmol/L (136-145)
[2023-08-12] MEDS: 0.9% Normal Saline (1000mL) 1,000 ML 150 ML IV (14:21)
[2023-08-12] MEDS: Pantoprazole Sodium 40 MG in 0.9% Normal Saline (100mL MB+) 100 ML 330 MG IV (14:21)
[2023-08-12 15:03] VITALS: BP 98/87; PULSE 58; O2SAT 99
== END 2023-08-12 15:09 | disposition home or self-care (01) ==
PROVIDERS: Emergency Provider Emergency Medicine; Visit Provider Emergency Medicine
DX: R13.10 Dysphagia, unspecified (principal); F17.290 Nicotine dependence, other tobacco product, uncomplicated; K20.90 Esophagitis, unspecified without bleeding; F12.90 Cannabis use, unspecified, uncomplicated; Z86.16 Personal history of COVID-19
CPT/HCPCS: 70490; 71046; 80048; 80076; 85025; 96360; 96361; 99283; J7030; A4216

== ENCOUNTER → 2023-09-03 | Outpatient (CLI) | payer MEDICAID, SELFPAY ==
--- NOTE | 2023-09-03 09:55 | RAD_ITS ---
STUDY: X-RAY - ESOPHAGUS (BARIUM SWALLOW) WITH FLUOROSCOPY REASON FOR EXAM: Male, 62 years old. DYSPHAGIA, PHARYNGOESOPHAGEAL PHASE TECHNIQUE: 29 seconds view(s) of the esophagus were obtained following swallowing of barium.. 6.87 mgy. 17 fluoroscopic images were obtained. FLUOROSCOPY TIME (if supplied): (29 seconds) minutes/seconds COMPARISON: None. FINDINGS: There is no demonstrated esophageal foreign body. There is no demonstrated stricture or mucosal abnormality. Normal gastroesophageal junction, without a demonstrated hiatal hernia. The patient ingested a 12 mm tablet of barium without any difficulty. Normal visualized aortic arch and descending thoracic aorta. Normal visualized pulmonary parenchyma. Normal visualized osseous structures of the thorax. RAD/Esophagus Dual Contrast IMPRESSION: Normal plain film x-ray examination (barium swallow) of the esophagus. Electronically Signed: Evens Nugent MD at 14:09 EDT ,
== END | disposition home or self-care (01) ==
PROVIDERS: Referring Provider Otolaryngology Otolaryngology/Facial Plastic Surgery; Visit Provider Otolaryngology Otolaryngology/Facial Plastic Surgery
DX: R13.14 Dysphagia, pharyngoesophageal phase (principal)
CPT/HCPCS: 74221

== ENCOUNTER 2023-11-18 09:11 | Emergency (ER) | payer SELFPAY ==
[2023-11-18 09:12] VITALS: BP 132/84; PULSE 86; RESP 15; TEMP 36.4; O2SAT 97; BMI 20.3
--- NOTE | 2023-11-18 10:07 | EDS_ITS ---
HPI History of Present Illness Chief Complaint: General Illness Informant: patient Narrative Narrative: 53-year-old male presents with 3 days of feeling ill. He has had cough, congestion, right earache, sore throat which is the initial symptom, headaches, myalgias and arthralgias. No fevers or chills. Some abdominal discomfort in the middle, no nausea or vomiting. He states it feels like gas. He has also had off-balance when he is walking and some vertiginous symptoms when he is not and turns his head. Right ear bothering him. He states multiple sick contacts at work all of which have been sick and he has close contact with them. Denies dyspnea or chest discomfort. [facility] Medical History COVID Home Medications ?Medication ?Instructions ?Recorded ?Last Taken ?Type ibuprofen 600 mg tablet 600 mg PO Q6H PRN PRN fever or 09/11/21 Unknown Rx pain #20 tabs pantoprazole 40 mg tablet,delayed 40 mg PO DAILY #30 tabs 08/11/22 Unknown Rx release (Protonix) ciprofloxacin HCl 500 mg tablet 500 mg PO BID #14 TABLETS 06/16/23 Unknown Rx pantoprazole 40 mg tablet,delayed 40 mg PO DAILY #30 tabs 08/12/23 Unknown Rx release (Protonix) meclizine 25 mg tablet 25 mg PO Q8H PRN PRN Dizziness #20 11/18/23 Unknown Rx tabs Allergy/AdvReac Type Severity Reaction Status Date / Time morphine AdvReac Other Verified 11/18/23 09:15 Family History Brother Kidney disease Unknown Kidney disease Unknown Kidney disease Surgical History History of tonsillectomy Social History household members: none current occupational status: employed current occupation: works at the [employer] Smoking Status: Current every day smoker tobacco type: cigars per week: 35 Tobacco: How many years used: 37 Electronic Cigarette Use: not used alcohol intake: former year quit: 2004 substance use type: marijuana what type of physical activity do you participate in: none do you feel safe at home: Yes ROS ROS ED Constitutional Constitutional ED: Reports body ache(s), headache(s) and malaise; Denies chills or fever(s) Eyes Eyes: Denies change in vision or diplopia ENT ENT ED: Reports ear pain right, nasal congestion, rhinorrhea, sore throat and vertigo; Denies tinnitus Cardiovascular Cardiovascular: Denies chest pain or palpitations Respiratory/Chest Respiratory/Chest: Denies cough or dyspnea Gastrointestinal Gastrointestinal: Reports abdominal pain; Denies diarrhea, nausea or vomiting Genitourinary Genitourinary ED: Denies dysuria or hematuria Musculoskeletal Musculoskeletal: Reports arthralgias and myalgias; Denies back pain or neck pain Integumentary Denies abscess or rash Neurologic Neurologic: Reports disequilibrium, dizziness and headache(s); Denies paresthesias or weakness Psychiatric Psychiatric: Denies anxiety or suicidal thoughts EXAM Physical Exam Const Vital Signs: 11/18/23 09:12 11/18/23 10:20 Temperature 97.5 F L Temperature Source Oral Pulse Rate 86 Respiratory Rate 15 Respiratory Effort Normal Non-Labored Respiratory Pattern Normal Blood Pressure 132/84 H Blood Pressure Mean 100 Pulse Ox 97 Oxygen Delivery Method Room Air Positive well nourished and well developed General Appearance ED: well developed and NAD HEENT Reports TM's clear and moist mucous membranes HEENT Narrative: Posterior pharynx with mild erythema no asymmetry, trismus, exudates. No tongue elevation or dysphonia. normocephalic and atraumatic Tympanic Membrane ED: Yes TM's clear Eyes PERRL and EOMs intact bilaterally Neck full ROM and supple Chest Wall inspection of chest normal and palpation of chest normal Resp normal respiratory effort and clear to auscultation bilaterally Cardio regular rate, regular rhythm and no murmurs Rate: Negative for tachycardic GI non-tender and non-distended Auscultation: normoactive bowel sounds Palpation: soft Back/Spine no CVA tenderness General Back: other FROM Extremity normal to inspection General Extremety ED: Negative for edema, pulses abnormal or tenderness General Extremity: Negative for edema or pulses abnormal Neuro oriented x3, CN's II-XII intact bilaterally, no sensory deficits noted and gait normal Sensorium / Orientation: awake and alert Motor Exam: strength 5/5 throughout Psych mental status grossly normal Skin no rashes or lesions noted and no wounds MDM MDM MDM Narrative Medical decision making narrative: Vital signs are normal, lungs are clear, excellent oxygenation, I do not think this is pneumonia. Likely viral in etiology, viral swab sent in addition to given him symptom treatment with IM Toradol, he requested a half dose, and oral meclizine. He feels much better after these 2 medications. His COVID/influenza/RSV swab returns negative. I suspect he has a viral etiology especially given his exam and normal vital signs, he is given a prescription for meclizine, discharged with instructions for supportive care and follow-up, we discussed reasons to return including worsening ear problems if he wants to be checked for infection again he does not have 1 at this time. Discharge Plan Triage Chief Complaint: General Illness ED Provider: Fernando Murillo Dx/Rx/DC Orders Clinical Impression: Acute viral syndrome, Otalgia, right ear, Peripheral vertigo Instructions: ED Vertigo, Unspecified, ED Viral Syndrome (Adult) Prescriptions: New meclizine 25 mg tablet 25 mg PO Q8H PRN PRN (Reason: Dizziness) Qty: 20 0RF No Action ibuprofen 600 mg tablet 600 mg PO Q6H PRN PRN (Reason: fever or pain) Qty: 20 0RF pantoprazole [Protonix] 40 mg tablet,delayed release (DR/EC) 40 mg PO DAILY Qty: 30 0RF ciprofloxacin HCl [ciprofloxacin HCl] 500 mg tablet 500 mg PO BID Qty: 14 0RF pantoprazole [Protonix] 40 mg tablet,delayed release (DR/EC) 40 mg PO DAILY Qty: 30 0RF Primary Care Provider: Care Physician,No Primary Referrals: Doctor,Your [Non-Staff] - 1 Week if not improving Print Language: Serbian Disposition Disposition: Home, Self Care
[2023-11-18] MEDS: Meclizine HCl 25 MG Tablet PO (10:53)
[2023-11-18] MEDS: Ketorolac 30 MG/ML Syringe IM (10:53)
[2023-11-18 12:32] VITALS: BP 128/86; PULSE 84; RESP 16; TEMP 36.5; O2SAT 99
== END 2023-11-18 12:35 | disposition home or self-care (01) ==
PROVIDERS: Emergency Provider Emergency Medicine; Visit Provider Emergency Medicine
DX: B34.9 Viral infection, unspecified (principal); H92.01 Otalgia, right ear; H81.399 Other peripheral vertigo, unspecified ear
CPT/HCPCS: 87631; 99282

== ENCOUNTER 2024-09-11 10:09 | Emergency (ER) | payer SELFPAY ==
[2024-09-11 10:11] VITALS: BP 139/87; PULSE 89; RESP 16; TEMP 37.7; O2SAT 99; BMI 17.8
--- NOTE | 2024-09-11 10:51 | CT_ITS ---
PROCEDURE: ABDOMEN/PELVIS W IV CONT ONLY 09/11/2024 REASON FOR EXAM: ABD PAIN, NAUSEA TECHNIQUE: ABDOMEN/PELVIS W IV CONT ONLY Coronal and Sagittal reconstruction series were provided. CONTRAST: Isovue 370 VOLUME: 100 mL One or more dose reduction techniques were used (e.g., Automated exposure control, adjustment of the mA and/or kV according to patient size, use of iterative reconstruction technique. RADIATION DOSE SUMMARY: CTDlvol: 10.16 mGy DLP: 317.75 mGycm COMPARISON: 2020 FINDINGS: Lung bases: Lingular infiltrate without pleural effusion. There are chronic interstitial changes in both lower lung collins Liver: Normal size. No mass. Gallbladder: Unremarkable Spleen: Normal size. Pancreas: Normal size without evidence of mass surrounding inflammation or ductal dilation. Adrenals: Unremarkable Kidneys: No obstructive uropathy or suspicious solid renal lesion Bladder: Bladder is decompressed but otherwise unremarkable Bowel: Nondistended fluid-filled small bowel loops suggest ileus which may be due to retained stool throughout the entirety of the colon. No obstruction or ileus noted. Appendix: Not visualized Lymph nodes: No suspicious mesenteric or retroperitoneal lymph nodes Vasculature: Unremarkable Peritoneum / Retroperitoneum: No free fluid or air Bones: Degenerative bony changes. CT/Abdomen/Pelvis W IV Cont ONLY IMPRESSION: No suspicious solid organ abnormality Lingular infiltrate without effusion Small-bowel ileus likely due to retained stool throughout the colon Degenerative bony changes Reading Location: [id number]
--- NOTE | 2024-09-11 10:51 | EKG12_ITS ---
Test Reason : GENERAL Blood Pressure : */* mmHG Vent. Rate : 84 BPM Atrial Rate : 84 BPM P-R Int : 120 ms QRS Dur : 122 ms QT Int : 368 ms P-R-T Axes : 65 -56 61 degrees QTcB Int : 434 ms Normal sinus rhythm Left axis deviation Right bundle branch block Abnormal ECG Confirmed by CATERINA SNOW, ABDI ([id number]), food expeditor MONIQUE LANCASTER ([id number]) on 09/12/2024 9:45:45 AM Referred By: Confirmed By: ABDI DIGGS MD
--- NOTE | 2024-09-11 10:53 | EDS_ITS ---
HPI History of Present Illness Chief Complaint: Lower Extremity Injury Narrative Narrative: Patient is a 63-year-old male with no known significant past medical history who presents to the emergency department with multiple complaints including right hip pain,, abdominal pain nausea not eating anything. Patient states that his symptoms been going on for a while however he states that he came in today to be evaluated. Patient states he has not seen a doctor in a a while. Denies any sick contacts. Patient states he does have a headache and states that he is not take anything for his headache. [facility] Medical History COVID Home Medications ?Medication ?Instructions ?Recorded ?Last Taken ?Type dicyclomine 20 mg tablet 20 mg PO TID #20 tabs Unknown Rx doxycycline hyclate 100 mg capsule 100 mg PO BID #14 c aps 09/11/24 Unknown Rx ibuprofen 200 mg tablet (Advil) 400 mg PO Q6H PRN feve r or pain 09/11/24 09/11/24 History ondansetron 4 mg disintegrating 4 mg PO Q6H PRN nausea and 09/11/24 Unknown Rx tablet vomiting #20 tabs peg 3350-electrolytes 236 240 ml PO Q10M PRN #4,000 mL 09/11/24 Unknown Rx gram-22.74 gram-6.74 gram-5.86 gram solution (GaviLyte-G) Allergy/AdvReac Type Severity Reaction Status Date / Time morphine AdvReac Other Verified 09/11/24 10:14 Family History Brother Kidney disease Unknown Kidney disease Unknown Kidney disease Surgical History History of tonsillectomy Social History household members: none current occupational status: employed current occupation: works at the [employer] Smoking Status: Current every day smoker tobacco type: cigars per week: 35 Tobacco: How many years used: 37 Electronic Cigarette Use: not used alcohol intake: former year quit: 2004 substance use type: marijuana what type of physical activity do you participate in: none do you feel safe at home: Yes ROS ROS ED ROS Narrative Constitutional: Complains of headache and chills denies any fevers, lightheadedness, dizziness Eyes: Denies any blurry vision Cardiovascular: Denies chest pain Respiratory: Denies shortness of breath Abdomen: Complains of abdominal pain and nausea as noted above denies vomiting or diarrhea : Denies any urinary symptoms Neurological: Denies any numbness, wheeze, tingling Musculoskeletal: Denies back pain Skin: Denies any rashes or lesions EXAM Physical Exam Narrative Exam Narrative: General: Patient is lying in bed rest comfortably did not appear to be acute distress Head: Atraumatic, normocephalic Eyes: PERRL bilaterally, EOMI bilaterally, no conjunctival injection noted Neck: Soft, supple, trachea midline Cardiovascular: Regular rate and rhythm Respiratory: Clear to auscultation bilaterally Abdomen: Soft, diffuse tenderness to palpation no rebound or guarding on exam Extremities: +5/5 strength noted in the bilateral upper and lower extremities, radial pulses +2/4 in the bilateral extremities, no pedal edema no exam Neurological: Patient following commands knew that he was at [facility] the year is 2024. NIH of 0 GCS 15 Skin: Warm, dry, intact no rashes or lesions noted Const Vital Signs: 09/11/24 10:11 Temperature 99.8 F H Temperature Source Oral Pulse Rate 89 Respiratory Rate 16 Blood Pressure 139/87 H Blood Pressure Mean 104 Pulse Ox 99 Oxygen Delivery Method Room Air MDM MDM MDM Narrative Medical decision making narrative: Patient is a 63-year-old male who presented to the emergency department chief complaint of right hip pain, abdominal pain, headache. On the differential diagnosis includes but not limited to migraine headache, bowel obstruction, pancreatitis, cancer. Once the workup is obtained reviewed he will be reevaluated. Patient be given IV fluids Reglan and Tylenol. Patient CBC reviewed and showed a mild leukocytosis of 13,000, hemoglobin 15.1, plate count 205. Patient sodium was 133, potassium normal at 4.4, creatinine was 1.23 he has an underlying chronic kidney disease. Patient's AST and ALT were 18 and 8 respectively total bilirubin normal at 0.85. Patient lipase normal at 13, urinalysis showed 5 high leukocyte esterase negative nitrates greater than 100 white cells with no bacteria noted this will be sent for culture will hold off on antibiotics as he does not have any urinary symptoms at this point time. Patient's x-ray of his hip and pelvis reviewed by myself by radiology showed no acute abnormalities. Patient CT ab pelvis IV contrast showed no suspicious solid organ abnormality lingular infiltrate without effusion. Small bowel ileus likely due to retained stool throughout the colon degenerative bony changes. On reevaluation the patient he is feeling much better he states that his headache is significantly improved and as well as his vision. He would like to go home at this point time. He was advised to use prescriptions that were sent to the pharmacy as prescribed which include GoLytely, doxycycline, Bentyl, Zofran as needed for nausea. He was advised to follow-up with a doctor which he was referred to and return with worsening symptoms or any concerns. He is agreeable this plan all question concerns answered he is discharged home in stable condition Lab Data Labs: Laboratory Results - last 24 hr 09/11/24 09/11/24 11:07 11:18 WBC 13.4 H RBC 5.03 Hgb 15.1 Hct 42.6 MCV 84.7 MCH 30.0 MCHC 35.4 RDW Std Deviation 46.9 H RDW Coeff of Sheldon 15.2 H Plt Count 205 MPV 9.4 Immature Gran % (Auto) 0.400 Neut % (Auto) 80.8 H Lymph % (Auto) 8.7 L George % (Auto) 9.8 Eos % (Auto) 0.1 Baso % (Auto) 0.2 Absolute Neuts (auto) 10.8 H Absolute Lymphs (auto) 1.17 Nucleated RBC % 0 Sodium 133 Potassium 4.4 Chloride 97 L Carbon Dioxide 22.7 Anion Gap 13 BUN 15 Creatinine 1.23 H Estim Creat Clear Calc 47.52 L Est GFR (MDRD) Non-Af 66 BUN/Creatinine Ratio 12.1 Glucose 141 H Calcium 9.2 Total Bilirubin 0.85 AST 18 ALT 8 Alkaline Phosphatase 79 Total Protein 8.2 Albumin 3.8 Globulin 4.4 H Albumin/Globulin Ratio 0.8 L Lipase 13 Urine Color Yellow Urine Clarity Sl. Cloudy Urine pH 6.0 Ur Specific Robards 1.020 Urine Protein 30 H Urine Glucose (UA) Normal Urine Ketones Negative Urine Occult Blood 150 H Urine Nitrite Negative Urine Bilirubin 1 H Urine Urobilinogen 12 H Ur Leukocyte Esterase 500 H Urine RBC 0 SEEN Urine WBC >100 SEEN Ur Squamous Epith Cells 0-5 SEEN Urine Bacteria 0 SEEN Urine Mucus 0 SEEN Radiography Diagnostic Testing: Clinical Impression(s) from Imaging Studies Abdomen/Pelvis CT 09/11/24 10:51 IMPRESSION: No suspicious solid organ abnormality Lingular infiltrate without effusion Small-bowel ileus likely due to retained stool throughout the colon Degenerative bony changes Reading Location: [facility] Hip/Pelvis X-Ray 09/11/24 11:40 IMPRESSION: No acute abnormalities Reading Location: [facility] Discharge Plan Triage Chief Complaint: Lower Extremity Injury ED Provider: Wivler Renee Dx/Rx/DC Orders Clinical Impression: Abdominal pain, Hip pain, right, Constipation, Pneumonia Prescriptions: New peg 3350-electrolytes [GaviLyte-G] 236-22.74-6.74 -5.86 gram recon soln 240 ml PO Q10M PRN Qty: 4000 0RF Rx Instructions: until fecal effluent is clear dicyclomine 20 mg tablet 20 mg PO TID Qty: 20 0RF ondansetron 4 mg tablet,disintegrating 4 mg PO Q6H PRN (Reason: nausea and vomiting) Qty: 20 0RF doxycycline hyclate 100 mg capsule 100 mg PO BID Qty: 14 0RF No Action ibuprofen [Advil] 200 mg tablet 400 mg PO Q6H PRN (Reason: fever or pain) Primary Care Provider: Care Physician,No Primary Referrals: Care Physician,No Primary [Primary Care Provider] - Kajal Leone Pankaj, [employer] [[facility]] - Activity Restrictions/Additional Instructions: Your x-ray of your hip did not show any acute broken bones. Take antibiotics as prescribed. Use GoLytely as your CT showed evidence of constipation. Use the Bentyl and Zofran as prescribed as well. Return with worsening symptoms or other concerns. Rotate Tylenol and ibuprofen [id number] for headache control. It when you do this you can take something every 3 hours max dose of Tylenol in 24 hours 4000 mg max dose of ibuprofen in 24 hours 3200 mg. Print Language: Sami Disposition Disposition: Home, Self Care
[2024-09-11 11:12] LABS: Hematocrit 42.6 % (40-54); Hemoglobin 15.1 g/dL (13.0-16.5); Immature Granulocytes Count 0.060 X10^3/uL (0.0-0.0); Mean Corp Hgb Conc 35.4 g/dL (32-36); Mean Corpuscular Volume 84.7 fL (80-94); Mean Platelet Vol. 9.4 fl (6.2-12.0); NRBC Flagged by Analyzer 0 % (0-5); Platelet Count 205 K/mm3 (150-450); RBC Distribution Width CV 15.2 % (11.6-14.6); RBC Distribution Width SD 46.9 fl (35.1-43.9); Red Blood Count 5.03 M/mm3 (4.6-6.2); White Blood Count 13.4 K/mm3 (4.4-11.0)
--- NOTE | 2024-09-11 11:16 | CM.ED ---
Social Work Date of referral: 09/11/24 Reason for referral: No Primary Care Physician (PCP) on file Referred by: Social Work Identification Patient provided consent for social work visit. Patient confirmed he is not currently connected to a PCP. Deposit Clerk provided education and a written handout for the [facility] which patient accepted and expressed appreciation for. 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
[2024-09-11] MEDS: 0.9% Normal Saline (1000mL) 1,000 ML 999 ML IV (11:22)
[2024-09-11 11:28] LABS: Mucous, Urine 0 SEEN /hpf (<or=2+); Red Blood Cells-Urine 0 SEEN /hpf (0-5)
[2024-09-11 11:30] LABS: Color, Urine Yellow (Yellow); Glucose, Dipstick Normal (Normal); Ketone-Dipstick Negative (Negative); Leukocyte Esterase-Dipstick 500 /ul (Negative); Nitrite-Dipstick Negative (Negative); Occult Blood-Urine 150 /ul (Negative); Protein-Dipstick 30 mg/dl (Negative); Specific Gravity, Urine 1.020 (1.002-1.030)
[2024-09-11 11:33] LABS: Urine Bilirubin Dipstick 1 mg/dL (Negative)
[2024-09-11 11:34] LABS: AST(SGOT) 18 U/L (<=37); Alanine Aminotransfer ALT/SGPT 8 U/L (<=46); Albumin, Serum 3.8 g/dL (3.4-4.8); Alkaline Phosphatase 79 U/L (40-129); Anion Gap 13 (5-15); BUN 15 mg/dL (4-19); BUN/Creat Ratio 12.1 RATIO (10-20); Calcium,Total 9.2 mg/dL (7.6-11.0); Carbon Dioxide 22.7 mmol/L (21.0-32.0); Chloride 97 mmol/L (98-108); Estimated Creatinine Clearance 47.52 ml/min (50-250); Globulin 4.4 g/dL (2.2-4.2); Glucose 141 mg/dL (70-99); Lipase 13 U/L (13-75); Potassium 4.4 mmol/L (3.3-5.1)
[2024-09-11 11:36] LABS: Squamous Epithelial Cells - UA 0-5 SEEN /hpf (0-5)
--- NOTE | 2024-09-11 11:40 | RAD_ITS ---
PROCEDURE: HIP, UNI W/ PELVIS 2-3 VIEWS 09/11/2024 REASON FOR EXAM: PAIN TECHNIQUE: HIP, UNI W/ PELVIS 2-3 VIEWS COMPARISON: None FINDINGS: Bones: No fracture or suspicious osseous lesion Joints: Joint spaces well-preserved Soft tissues: No suspicious soft tissue swelling or foreign body Other: RAD/HIP, UNI W/ Pelvis 2-3 Views IMPRESSION: No acute abnormalities Reading Location: [id number]
--- OUTSIDE RECORDS SUMMARY | 2024-09-11 12:07 | XMS RPT_ITS | CCD ---
Demographics Address [address] [place] [address] Preferred Language en Marital Status Single Roman Catholic Affiliation Unknown Race Black or Angelica rican Ethnic Group Not or Lati no Author Organization [facility] ion Partnership [facility] Care Team Providers Care Net Fisher Name Role Phone Care Physician, No Primary Primary Care Provider Unavailable Care Physician, No Primary Referring Provider Un available Dr. Nicolasa Machuca Attending Provider Dr. Nicolasa Machuca Primary Care Provider Dr. Nicolasa Machuca Referring Provider JENNY Mccoy Attending Provider Unavailab le Unavailable Primary Care Provider Unavailabl e Unavailable Primary Care Provider Unavailabl e Care Physician, No Primary Primary Care Unava ilable Fernando Murillo Attending Unavailable Care Physician, No Primary Primary Care Unava ilable La Pratt Attending Unavailable Care Physician, No Primary Primary Care Unava ilable Vinod Gomez Attending Unavailable Care Physician, No Primary Primary Care Unava ilable Kj Armijo Referring Unavailable Kj Armijo Attending Unavailable Allergies Allergy Classification Reported Allergen(s) Allergy Type Date of Onset Reaction(s) Facility (9 sources) Morphine; Translations: [MORPHINE] Drug Allergy 1 Mental Status Change [facility] (1 source) Morphine Drug Allergy [facility] Medications Current Medications Medication Drug Class(es) Dates Sig (Normalized) Sig (Original) ciprofloxacin 500 mg oral tablet (1 source) Quinolone Antimicrobial Start: 06-16-2023 take 500 mg by mouth twice daily Ciprofloxacin Hcl Active 500 MG PO TWICE A DAY June 16, 2023 12:00am ibuprofen 600 mg oral tablet (5 sources) Nonsteroidal Anti-inflammatory Drug Start: 09-11-2021 take 600 mg by mouth every six hours as needed Ibuprofen Active 600 MG PO EVERY 6 HOURS NEEDED September 11, 2021 12:00am 24 hr nicotine 0.875 mg/hr transdermal system (2 sources) Cholinergic Nicotinic Agonist Start: 08-15-2021 apply 1 dose transdermal route once daily Nicotine Active 1 PATCH TD DAILY August 15, 2021 12:00am Start: 08-15-2021 Nicotine (Carmine crilex) Active 2 MG BUCCAL Q2H August 15, 2021 12:00am omeprazole 20 mg delayed release oral capsule (1 source) Proton Pump Inhibitor Start: 08-27-2021 take 20 mg by mouth once daily Omeprazole Active 20 MG PO DAILY August 27, 2021 12:00am pantoprazole 40 mg delayed release oral tablet (3 sources) Proton Pump Inhibitor Start: 08-11-2022 take 1 tablet by mouth once daily Pantoprazole (Protonix) 40 mg tablet,delayed release (DR/EC) Active 40 MG PO DAILY August 11, 2022 12:00am predniSONE 20 mg oral tablet (1 source) Start: 01-30-2022 End: 02-04-2022 take 2 tablets by mouth once daily predniSONE (DELTASONE) 20 mg tablet Indications: Rib pain on right side Take 2 tablets by mouth once daily for 5 days. 10 tablet 0 01/30/2022 02/04/2022 Active Comment on above: Take 2 tablets by [facility] once daily for 5 days. Completed/Discontinued Medications Medication Drug Class(es) Dates Sig (Normalized) Sig (Original) cyclobenzaprine hydrochloride 10 mg oral tablet (3 sources) Muscle Relaxant Start: 2 take 1 tablet by mouth three times daily as needed for muscle spasms cyclobenzaprine (FLEXERIL) 10 mg ORAL tablet Indications: Back pain Take 1 tablet by mouth three times daily as needed for Muscle Spasm. 30 tablet 3 03/14/2011 Active Comment on above: Take 1 tablet by [facility] three times daily as needed for Muscle Spasm. hydrocortisone 25 mg/ml topical cream (3 sources) Corticosteroid Start: 2 apply 15 g rectal route twice daily hydrocortisone 2.5 % RECTAL rectal cream Indications: Bleeding external hemorrhoids by RECTAL route twice daily. for hemorrhoids 15 g 2 03/14/2011 Active Comment on above: by RECTAL route twic e daily. for hemorrhoids raNITIdine 300 mg oral tablet (3 sources) Histamine-2 Receptor Antagonist Start: 2 take 1 tablet by mouth once daily at bedtime for gastroesophageal reflux disease Ranitidine HCl 300 mg ORAL tablet Indications: GERD (gastroesophageal reflux disease) Take 1 tablet by mouth daily at bedtime. For heartburn 30 tablet 5 03/14/2011 Active Comment on above: Take 1 tablet by odilia th daily at bedtime. For heartburn Problems Active Problems Problem Classification Problem Date Documented Date Episodic/Chronic Abdominal pain (6 sources) Left lower quadrant pain; Translations: [Left lower quadrant pain] Episodic Administrative/social admission (1 source) Persons encountering health services in other specified circumstances; Translations: [Other reasons for seeking consultation] Episodic Cardiac dysrhythmias (5 sources) Bradycardia; Translations: [Bradycardia, unspecified] 06-06-2021 Episodic Esophageal disorders (3 sources) Gastroesophageal reflux disease; Translations: [Gastro-esophageal reflux disease without esophagitis] Onset: 2 03-14-2011 Chronic Esophageal disorders (3 sources) Esophagitis; Translations: [Esophagitis] 08-11-2022 Episodic Immunizations and screening for infectious disease (1 source) Contact with and (suspected) exposure to other viral communicable diseases; Translations: [Contact with or suspected exposure to other viral communicable disease] 10-23-2022 Episodic Inflammatory conditions of male genital organs (1 source) Epididymitis; Translations: [Epididymitis] 06-16-2023 Episodic Malaise and fatigue (10 sources) Malaise and fatigue; Translations: [Other malaise] 09-19-2021 Episodic Mood disorders (6 sources) Moderate major depression ; Translations: [Major depressive disorder, single episode, moderate] Chronic Other gastrointestinal disorders (2 sources) Difficulty swallowing solids; Translations: [Dysphagia, unspecified] 09-10-2022 Episodic Other gastrointestinal disorders (1 source) Dysphagia, pharyngoesophageal phase; Translations: [Dysphagia, pharyngoesophageal phase] Onset: 4 Episodic Other gastrointestinal disorders (1 source) Dysphagia, unspecified; Translations: [Dysphagia, unspecified] Onset: 4 Episodic Other lower respiratory disease (1 source) Rib pain; Translations: [Pleurodynia] Episodic Other male genital disorders (1 source) Male erectile dysfunction, unspecified; Translations: [Impotence of organic origin] Chronic Other male genital disorders (5 sources) Testicular mass; Translations: [Other specified disorders of the male genital organs] 06-22-2020 Episodic Other male genital disorders (5 sources) Pain of left testicle; Translations: [Left testicular pain] 06-22-2020 Episodic Other male genital disorders (1 source) Left testicular pain; Translations: [Unspecified disorder of male genital organs] Episodic Other male genital disorders (1 source) Other specified disorders of the male genital organs; Translations: [Other specified disorders of male genital organs] Episodic Other non-traumatic joint disorders (5 sources) Joint pain; Translations: [Pain in unspecified joint] 09-19-2021 Episodic Other screening for suspected conditions (not mental disorders or infectious disease) (4 sources) Encounter for screening for malignant neoplasm of colon; Translations: [Special screening for malignant neoplasms of colon] Episodic Other upper respiratory infections (4 sources) Upper respiratory infection; Translations: [Acute upper respiratory infection, unspecified] 01-24-2022 Episodic Residual codes; unclassified (1 source) Immunization not carried out because of patient refusal; Translations: [Vaccination not carried out because of patient refusal] Episodic Substance-related disorders (6 sources) Smoker; Translations: [Nicotine dependence, unspecified, uncomplicated] Chronic Syncope (5 sources) Syncope; Translations: [Syncope and collapse] 06-06-2021 Episodic Viral infection (11 sources) Viral disease; Translations: [Viral infection, unspecified] Onset: Episodic Past or Other Problems Problem Classification Problem Date Documented Da te Episodic/Chronic Gastritis and duodenitis (3 sources) Gastritis; Translations: [Gastritis, unspecified, without bleeding] Onset: 02-07-2005 02-07-2005 Episodic Hemorrhoids (3 sources) External hemorrhoids; Translations: [Residual hemorrhoidal skin tags] Onset: 03-28-2011 03-28-2011 Episodic Residual codes; unclassified (3 sources) Tobacco user; Translations: [Tobacco use] Onset: 03-14-2011 03-14-2011 Episodic Spondylosis; intervertebral disc disorders; other back problems (3 sources) Backache; Translations: [Dorsalgia, unspecified] Onset: 03-14-2011 03-14-2011 Episodic Urinary tract infections (2 sources) Urinary tract infectious disease; Translations: [Urinary tract infection, site not specified] Onset: 07-05-2023 06-16-2023 Episodic Results Test Name Value Interpretation Reference Range Facility Emergency Department Summary on 11-18-2023 Emergency Department Summary [facility] Medical Records Department [address] [place] [address] Emergency Department Summary 11/18/23 MR#: [id number] Acct: [id number] Name: FAM DELUNA Jr. Rep #: [id number] : 1960 63 From: Fernando Murillo MD PCP: Care Physician,No Primary Status:REG ER Location: ED HPI History of Present Illness Chief Complaint: General Illness Informant: patient Narrative Narrative: 53-year-old male presents with 3 days of feeling ill. He has had cough, congestion, right earache, sore throat which is the initial symptom, headaches, myalgias and arthralgias. No fevers or chills. Some abdominal discomfort in the middle, no nausea or vomiting. He states it feels like gas. He has also had off-balance when he is walking and some vertiginous symptoms when he is not and turns his head. Right ear bothering him. He states multiple sick contacts at work all of which have been sick and he has close contact with them. Denies dyspnea or chest discomfort. [facility] Medical History COVID Home Medications ???Medication ???Instructions ???Recorded ???Last Taken ???Type ibuprofen 600 mg tablet 600 mg PO Q6H PRN PRN fever or 09/11/21 Unknown Rx pain #20 tabs pantoprazole 40 mg tablet,delayed 40 mg PO DAILY #30 tabs 08/11/22 Unknown Rx release (Protonix) ciprofloxacin HCl 500 mg tablet 500 mg PO BID #14 TABLETS 06/16/23 Unknown Rx pantoprazole 40 mg tablet,delayed 40 mg PO DAILY #30 tabs 08/12/23 Unknown Rx release (Protonix) meclizine 25 mg tablet 25 mg PO Q8H PRN PRN Dizziness #20 11/18/23 Unknown Rx tabs Allergy/AdvReac Type Severity Reaction Status Date / Time morphine AdvReac Other Verified 11/18/23 09:15 Family History Brother Kidney disease Unknown Kidney disease Unknown Kidney disease Surgical History History of tonsillectomy Social History household members: none current occupational status: employed current occupation: works at the [employer] Smoking Status: Current every day smoker tobacco type: cigars per week: 35 Tobacco: How many years used: 37 Electronic Cigarette Use: not used alcohol intake: former year quit: 2004 substance use type: marijuana what type of physical activity do you participate in: none do you feel safe at home: Yes ROS ROS ED Constitutional Constitutional ED: Reports body ache(s), headache(s) and malaise; Denies chills or fever(s) Eyes Eyes: Denies change in vision or diplopia ENT ENT ED: Reports ear pain right, nasal congestion, rhinorrhea, sore throat and vertigo; Denies tinnitus Cardiovascular Cardiovascular: Denies chest pain or palpitations Respiratory/Chest Respiratory/Chest: Denies cough or dyspnea Gastrointestinal Gastrointestinal: Reports abdominal pain; Denies diarrhea, nausea or vomiting Genitourinary Genitourinary ED: Denies dysuria or hematuria Musculoskeletal Musculoskeletal: Reports arthralgias and myalgias; Denies back pain or neck pain Integumentary Denies abscess or rash Neurologic Neurologic: Reports disequilibrium, dizziness and headache(s); Denies paresthesias or weakness Psychiatric Psychiatric: Denies anxiety or suicidal thoughts EXAM Physical Exam Const Vital Signs: 11/18/23 09:12 11/18/23 10:20 Temperature 97.5 F L Temperature Source Oral Pulse Rate 86 Respiratory Rate 15 Respiratory Effort Normal Non-Labored Respiratory Pattern Normal Blood Pressure 132/84 H Blood Pressure Mean 100 Pulse Ox 97 Oxygen Delivery Method Room Air Positive well nourished and well developed General Appearance ED: well developed and NAD HEENT Reports TM's clear and moist mucous membranes HEENT Narrative: Posterior pharynx with mild erythema no asymmetry, trismus, exudates. No tongue elevation or dysphonia. normocephalic and atraumatic Tympanic Membrane ED: Yes TM's clear Eyes PERRL and EOMs intact bilaterally Neck full ROM and supple Chest Wall inspection of chest normal and palpation of chest normal Resp normal respiratory effort and clear to auscultation bilaterally Cardio regular rate, regular rhythm and no murmurs Rate: Negative for tachycardic GI non-tender and non-distended Auscultation: normoactive bowel sounds Palpation: soft Back/Spine no CVA tenderness General Back: other FROM Extremity normal to inspection General Extremety ED: Negative for edema, pulses abnormal or tenderness General Extremity: Negative for edema or pulses abnormal Neuro oriented x3, CN's II-XII intact bilaterally, no sensory deficits noted and gait normal Sensorium / Orien (more content not included)... [facility] M100.678on 11-18-2023 M100.678 Pending SARS-CoV-2 (COVID 19) Negative INFLUENZA A Negative INFLUENZA B Negative RSV PCR Negative [facility] Comment on above: Performed By: #### M 100.678 #### [facility] [address] [facility] [place], [place], [address] Esophagus Dual Contraston Esophagus Dual Contrast [facility] Imaging Services [address] [place], [place] [address] Esophagus Dual Contrast MR#: [id number] Acct: [id number] Name: FAM DELUNA Jr. Rep #: [id number] : 1960 M 62 From: Evens weiner MD PCP: Care Physician,No Primary Status: REG CLI Study: Esophagus Dual Contrast Date of Exam: 09/03/23 Exam# [id number] Ordering Dr: Kj Armijo MD [id number] STUDY: X-RAY - ESOPHAGUS (BARIUM SWALLOW) WITH FLUOROSCOPY REASON FOR EXAM: Male, 62 years old. DYSPHAGIA, PHARYNGOESOPHAGEAL PHASE TECHNIQUE: 29 seconds view(s) of the esophagus were obtained following swallowing of barium.. 6.87 mgy. 17 fluoroscopic images were obtained. FLUOROSCOPY TIME (if supplied): (29 seconds) minutes/seconds COMPARISON: None. FINDINGS: There is no demonstrated esophageal foreign body. There is no demonstrated stricture or mucosal abnormality. Normal gastroesophageal junction, without a demonstrated hiatal hernia. The patient ingested a 12 mm tablet of barium without any difficulty. Normal visualized aortic arch and descending thoracic aorta. Normal visualized pulmonary parenchyma. Normal visualized osseous structures of the thorax. RAD/Esophagus Dual Contrast IMPRESSION: Normal plain film x-ray examination (barium swallow) of the esophagus. Electronically Signed: Evens Nugent MD at 14:09 EDT , CC: Dr. Kj Armijo MD; No Primary Care Physician Agricultural Lender: Signed [facility] Basic Metabolic Profile (BMP )on 08-12-2023 BUN/CRE 11.9 RATIO Normal 10-20 [facility] Comment on above: Performed By: #### L 500.3400, L500.2500, L100.0100 ####[facility] [address] [place], [address] CA,Total 9.5 mg/dL Normal 8.5-10.1 [facility] Comment on above: Performed By: #### L 500.3400, L500.2500, L100.0100 ####[facility] [address] [place], [address] Chloride [Moles/Vol] 102 mmol/L Normal 98-107 [facility] Comment on above: Performed By: #### L 500.3400, L500.2500, L100.0100 ####[facility] [address] [place], [address] CO2 [Moles/Vol] 30.0 mmol/L Normal 21.0-32.0 [facility] Comment on above: Performed By: #### L 500.3400, L500.2500, L100.0100 ####[facility] [address] [place], [address] Creatinine [Mass/Vol] 1.34 mg/dL High 0.70-1.30 [facility] Comment on above: Result Comment: The validity of the calculated GFR GFRAA in patients over 70 years has not been determined. Clinical correlation is essential. Performed By: #### L 500.3400, L500.2500, L100.0100 ####[facility] [address] [place], [address] ECRCL 43.35 ml/min [facility] Comment on above: Performed By: #### L 500.3400, L500.2500, L100.0100 ####[facility] [address] [place], [address] EST GFR - AA 69 mL/min Normal >60 [facility] Comment on above: Result Comment: Afri can Bangladeshi GFR Calc Performed By: #### L 500.3400, L500.2500, L100.0100 ####[facility] [address] [place], [address] GAP 5 Normal 5-15 [facility] Comment on above: Performed By: #### L 500.3400, L500.2500, L100.0100 ####[facility] [address] [place], [address] GFR/1.73 sq M.predicted among non-blacks MDRD (S/P/Bld) [Vol rate/Area] 57 mL/min/{1.73_m2} Low >60 [facility] Comment on above: Result Comment: Non- GFR Calc Performed By: #### L 500.3400, L500.2500, L100.0100 ####[facility] [address] [place], [address] Glucose [Mass/Vol] 84 mg/dL Normal 74-106 [facility] Comment on above: Performed By: #### L 500.3400, L500.2500, L100.0100 ####[facility] [address] [place], [address] Potassium [Moles/Vol] 3.8 mmol/L Normal 3.5-5.1 [facility] Comment on above: Result Comment: Slig ht Hemolysis, Result may be falsely increased. Performed By: #### L 500.3400, L500.2500, L100.0100 ####[facility] [address] [place], [address] Sodium [Moles/Vol] 137 mmol/L Normal 136-145 [facility] Comment on above: Performed By: #### L 500.3400, L500.2500, L100.0100 ####[facility] [address] [place], [address] Urea nitrogen [Mass/Vol] 16 mg/dL Normal 7-18 [facility] Comment on above: Performed By: #### L 500.3400, L500.2500, L100.0100 ####[facility] [address] [place], [address] CBC W/Diff, Automatedon 07-0 3-2023 Absolute Lymph 1.53 X10 3/uL Normal 0.83-4.51 [facility] Comment on above: Performed By: #### L 500.3400, L500.2500, L100.0100 ####[facility] [address] [place], [address] Absolute Neut 2.5 X10 3/uL Normal 2.0-7.7 [facility] Comment on above: Performed By: #### L 500.3400, L500.2500, L100.0100 ####[facility] [address] [place], [address] Basophils/100 WBC (Bld) 0.9 % Normal 0-1 [facility] Comment on above: Performed By: #### L 500.3400, L500.2500, L100.0100 ####[facility] [address] [place], [address] Eosinophils/100 WBC (Bld) 4.1 % Normal 0-5 [facility] Comment on above: Performed By: #### L 500.3400, L500.2500, L100.0100 ####[facility] [address] [place], [address] Erythrocyte distribution width (RBC) [Ratio] 15.2 % High 11.6-14.6 [facility] Comment on above: Performed By: #### L 500.3400, L500.2500, L100.0100 ####[facility] [address] [place], [address] Hematocrit (Bld) [Volume fraction] 45.8 % Normal 40-54 [facility] Comment on above: Performed By: #### L 500.3400, L500.2500, L100.0100 ####[facility] [address] [place], [address] Hemoglobin (Bld) [Mass/Vol] 15.7 g/dL Normal 13.0-16.5 [facility] Comment on above: Performed By: #### L 500.3400, L500.2500, L100.0100 ####[facility] [address] [place], [address] IG% 0.200 Normal 0.0-0.9 [facility] Comment on above: Result Comment: IG% - Immature Granulocytes (promyelocytes, myelocytes and metamyelocytes) > 1% indicates that a LEFT SHIFT is Present. Performed By: #### L 500.3400, L500.2500, L100.0100 ####[facility] [address] [place], [address] Lymphocytes/100 WBC (Bld) 32.9 % Normal 19-41 [facility] Comment on above: Performed By: #### L 500.3400, L500.2500, L100.0100 ####[facility] [address] [place], [address] MCH (RBC) [Entitic mass] 29.8 pg Normal 27.0-32.0 [facility] Comment on above: Performed By: #### L 500.3400, L500.2500, L100.0100 ####[facility] [address] [place], [address] MCHC (RBC) [Mass/Vol] 34.3 g/dL Normal 32-36 [facility] Comment on above: Performed By: #### L 500.3400, L500.2500, L100.0100 ####[facility] [address] [place], [address] MCV (RBC) [Entitic vol] 86.9 fL Normal 80-94 [facility] Comment on above: Performed By: #### L 500.3400, L500.2500, L100.0100 ####[facility] [address] [place], [address] Monocytes/100 WBC (Bld) 9.2 % Normal 0-10 [facility] Comment on above: Performed By: #### L 500.3400, L500.2500, L100.0100 ####[facility] [address] [place], [address] Neutrophils/100 WBC (Bld) 52.7 % Normal 47-70 [facility] Comment on above: Performed By: #### L 500.3400, L500.2500, L100.0100 ####[facility] [address] [place], [address] Nucleated RBC (Bld) [#/Vol] 0 10*3/uL Normal 0-5 [facility] Comment on above: Performed By: #### L 500.3400, L500.2500, L100.0100 ####[facility] [address] [place], [address] Platelet mean volume (Bld) [Entitic vol] 9.8 fL Normal 6.2-12.0 [facility] Comment on above: Performed By: #### L 500.3400, L500.2500, L100.0100 ####[facility] [address] [place], [address] Platelets (Bld) [#/Vol] 299 10*3/uL Normal 150-450 [facility] Comment on above: Performed By: #### L 500.3400, L500.2500, L100.0100 ####[facility] [address] [place], [address] RBC (Bld) [#/Vol] 5.27 10*6/uL Normal 4.6-6.2 [facility] Comment on above: Performed By: #### L 500.3400, L500.2500, L100.0100 ####[facility] [address] [place], [address] RDW SD 47.9 fl High 35.1-43.9 [facility] Comment on above: Performed By: #### L 500.3400, L500.2500, L100.0100 ####[facility] [address] [place], [address] WBC (Bld) [#/Vol] 4.7 10*3/uL Normal 4.4-11.0 [facility] Comment on above: Performed By: #### L 500.3400, L500.2500, L100.0100 ####[facility] [address] [place], [address] Chest PA and Lateralon 08-11 Chest PA and Lateral [facility] Imaging Services [address] [place] [address] Chest PA and Lateral MR#: [id number] Acct: [id number] Name: NIKOLE DELUNADIE Rep #: [id number] : 1960 M 62 From: Juma Salomon PCP: Care Physician,No Primary Status: REG ER Study: Chest PA and Lateral Date of Exam: 08/12/23 Exam# [id number] Ordering Dr: La Pratt MD [id number] INDICATION: diff swallowing EXAMINATION/TECHNIQUE : X-RAY - XR Chest 2 Views COMPARISON: No relevant prior comparison study available __ FINDINGS: LINES/DEVICES: None. LUNGS: No consolidation, edema or effusion. No pneumothorax. MEDIASTINUM AND CARDIOVASCULAR STRUCTURES: Cardiac silhouette not enlarged. Central airways and mediastinal contour are unremarkable. BONES AND SOFT TISSUES: Unremarkable. RAD/Chest PA and Lateral IMPRESSION: No radiographic evidence of acute cardiopulmonary disease. Electronically Signed: Juma Oates MD at 14:18 EDT , CC: Dr. La Pratt MD; No Primary Care Physician Agricultural Lender: Signed [facility] Emergency Department Summary on 08-12-2023 Emergency Department Summary [facility] Medical Records Department [address] [place] [address] Emergency Department Summary 08/12/23 MR#: [id number] Acct: [id number] Name: FAM DELUNA Jr. Rep #: [id number] : 1960 62 From: La Pratt MD PCP: Care Physician,No Primary Status:DEP ER Location: ED HPI History of Present Illness Chief Complaint: General Illness Informant: patient Onset/Context/Timing Onset: Days Narrative Narrative: Patient presents with 1 week history of difficulty swallowing. He states he is able to drink water and was able to drink a protein shake today. He feels like things get caught in his throat and he points to the area of the [employer]ani[employer] apple. He states a couple days ago he had to pull a piece of chicken out of his throat. He had similar symptoms last fall and was scoped by who he believes was ENT at the outpatient surgery center. I am unable to review those records. Patient states that he had been doing well for about 6 months but now symptoms have recurred. He is concerned that he is weak and is losing weight because he cannot keep up with his nutrition needs. Patient reports a subjective fever but did not measure his temperature at home. [facility] Medical History COVID Home Medications ???Medication ???Instructions ???Recorded ???Last Taken ???Type ibuprofen 600 mg tablet 600 mg PO Q6H PRN PRN fever or 09/11/21 Unknown Rx pain #20 tabs pantoprazole 40 mg tablet,delayed 40 mg PO DAILY #30 tabs 08/11/22 Unknown Rx release (Protonix) ciprofloxacin HCl 500 mg tablet 500 mg PO BID #14 TABLETS 06/16/23 Unknown Rx pantoprazole 40 mg tablet,delayed 40 mg PO DAILY #30 tabs 08/12/23 Unknown Rx release (Protonix) Allergy/AdvReac Type Severity Reaction Status Date / Time morphine AdvReac Other Verified 08/12/23 11:45 Family History Brother Kidney disease Unknown Kidney disease Unknown Kidney disease Surgical History History of tonsillectomy Social History household members: none current occupational status: employed current occupation: works at the [employer] Smoking Status: Current every day smoker tobacco type: cigars per week: 35 Tobacco: How many years used: 37 Electronic Cigarette Use: not used alcohol intake: former year quit: 2004 substance use type: marijuana what type of physical activity do you participate in: none do you feel safe at home: Yes ROS ROS ED Constitutional Constitutional ED: Denies chills or fever(s) Eyes Eyes: Denies discharge from eye(s) ENT ENT ED: Reports sore throat; Denies discharge from eye(s) or rhinorrhea Cardiovascular Cardiovascular: Denies chest pain Respiratory/Chest Respiratory/Chest: Denies cough or dyspnea Gastrointestinal Gastrointestinal: Denies abdominal pain, nausea or vomiting Genitourinary Genitourinary ED: Denies dysuria Musculoskeletal Musculoskeletal: Denies back pain or extremity pain Integumentary Denies Abrasions or rash Neurologic Neurologic: Denies headache(s) or weakness Psychiatric Psychiatric: Denies anxiety or depression Allergic/Immunologic Allergic/Immunologic ED: Denies lip swelling or urticaria EXAM Physical Exam Narrative Exam Narrative: Patient speaks with a strong voice and is tolerating secretions well. Const Vital Signs: 08/12/23 11:45 08/12/23 13:45 08/12/23 13:53 Temperature 96.4 F L Temperature Source Temporal Pulse Rate 77 59 L Respiratory Rate 16 16 Respiratory Pattern Normal Blood Pressure 137/100 H 120/74 Blood Pressure Mean 112 89 Pulse Ox 97 99 Oxygen Delivery Method Room Air Positive well nourished and well developed General Appearance ED: well developed HEENT Reports dry mucous membranes Mouth ED: Yes dry mucous membranes Mouth: dry mucous membranes Eyes EOMs intact bilaterally Chest Wall inspection of chest normal and palpation of chest normal Resp normal respiratory effort and clear to auscultation bilaterally Cardio regular rate and regular rhythm GI non-tender Palpation: soft Neuro oriented x3 and no sensory deficits noted Motor Exam: strength 5/5 throughout Psych mental status grossly normal Skin no rashes or lesions noted MDM MDM MDM Narrative Medical decision making narrative: Patient's prior visits were reviewed. He was here on 2 separate occasions last fall with similar symptoms. I am not able to review the surgical notes from ENT. IV line will be established. Labwork obtained to evaluate for leukocytosis, anemia, and electrolyte derangement. Patient received IV fluids for hydration. (more content not included)... [facility] Liver Profileon 08-12-2023 Albumin [Mass/Vol] 3.4 g/dL Normal 3.2-5.0 [facility] Comment on above: Performed By: #### L 500.3400, L500.2500, L100.0100 ####[facility] [address] [place], [address] ALK P 88 U/L Normal 45-117 [facility] Comment on above: Performed By: #### L 500.3400, L500.2500, L100.0100 ####[facility] [address] [place], [address] ALT [Catalytic activity/Vol] 23 U/L Normal 16-61 [facility] Comment on above: Performed By: #### L 500.3400, L500.2500, L100.0100 ####[facility] [address] [place], [address] AST [Catalytic activity/Vol] 19 U/L Normal 15-37 [facility] Comment on above: Result Comment: Slig ht Hemolysis, Result may be falsely increased. Performed By: #### L 500.3400, L500.2500, L100.0100 ####[facility] [address] [place], [address] Bilirubin [Mass/Vol] 0.60 mg/dL Normal 0.20-1.00 [facility] Comment on above: Result Comment: For patients on eltrombopag therapy, use of Dimension Seymour TBIL is not recommended. Performed By: #### L 500.3400, L500.2500, L100.0100 ####[facility] [address] [place], [address] Bilirubin.direct [Mass/Vol] 0.16 mg/dL Normal 0.00-0.30 [facility] Comment on above: Performed By: #### L 500.3400, L500.2500, L100.0100 ####[facility] [address] [place], [address] Globulin (S) [Mass/Vol] 4.9 g/dL High 2.2-4.2 [facility] Comment on above: Performed By: #### L 500.3400, L500.2500, L100.0100 ####[facility] [address] [place], [address] T PROT 8.3 g/dL High 6.4-8.2 [facility] Comment on above: Performed By: #### L 500.3400, L500.2500, L100.0100 ####[facility] [address] [place], [address] Soft Tissue Neck without Con jane 08-12-2023 Soft Tissue Neck without Contr [facility] Imaging Services [address] [place] [address] Soft Tissue Neck without Contr MR#: [id number] Acct: [id number] Name: FAM DELUNA JrJah Rep #: [id number] : 1960 M 62 From: Juma Salomon PCP: Care Physician,No Primary Status: REG ER Study: Soft Tissue Neck without Contr Date of Exam: 0 08/12/23 Exam# [id number] Ordering Dr: La Pratt MD [id number] INDICATION: pain, difficulty swallowing EXAMINATION: CT NECK - CT Soft Tissue Neck W/O Contrast Injection TECHNIQUE: Multiple axial images were obtained of the neck. The protocol utilizes one or more of the following dose reduction techniques: automated exposure control, adjustment of mA and/or kV according to patient size,and/or use of iterative reconstruction technique. IV Contrast dosage and agent: None. RADIATION DOSAGE (If Supplied By Facility): CTDIvol = ( 17.31 ) mGy, DLP = ( 551.13 ) mGycm COMPARISON: Prior study dated: 09/10/2022 __ FINDINGS: NASOPHARYNX: Unremarkable. SUPRAHYOID NECK: Unremarkable oropharynx, oral cavity, parapharyngeal space, and retropharyngeal space. INFRAHYOID NECK: Unremarkable larynx, hypopharynx, and supraglottis. THYROID: No focal lesions. SALIVARY GLANDS: Unremarkable. LYMPH NODES: No cervical or supraclavicular lymphadenopathy. VASCULAR STRUCTURES: Unremarkable. VISUALIZED PORTIONS OF THE ORBITS, PARANASAL SINUSES, MASTOID AIR CELLS AND SKULL BASE: Unremarkable. BONES: Degenerative changes of the spine. THORACIC INLET: Clear lung apices. CT/Soft Tissue Neck without Contr IMPRESSION: Essentially unremarkable CT neck without contrast. Electronically Signed: Juma Oates MD at 14:26 EDT , CC: Dr. La Pratt MD; No Primary Care Physician Agricultural Lender: Signed [facility] Absolute lymphocyte countOrd ered By: Vinod Gomez on 06-16-2023 Lymphocytes Auto (Unsp spec) [#/Vol] 2.05 10*3/uL 0.83-4.51 [facility] Amorphous sediment detection in urine sediment by light microscopyOrdered By: Vinod Gomez on 06-16-2023 Amorphous sediment LM Ql (Urine sed) 1+ URATE [facility] Automated lymphocyte count a s percentage of total leukocytesOrdered By: Vinod Gomez on 06-16-2023 Lymphocytes/100 WBC Auto (Unsp spec) 45.5 % 19-41 [facility] Basic Metabolic Profile (BMP )on 06-16-2023 BUN/CRE 8.6 RATIO Low 10-20 [facility] Comment on above: Performed By: #### L 500.2500, L501.2450, L100.0100 #### [facility] [address] [place], [address] CA,Total 9.1 mg/dL Normal 8.5-10.1 [facility] Comment on above: Performed By: #### L 500.2500, L501.2450, L100.0100 #### [facility] [address] [place], [address] Chloride [Moles/Vol] 105 mmol/L Normal 98-107 [facility] Comment on above: Performed By: #### L 500.2500, L501.2450, L100.0100 #### [facility] [address] [place], [address] CO2 [Moles/Vol] 31.0 mmol/L Normal 21.0-32.0 [facility] Comment on above: Performed By: #### L 500.2500, L501.2450, L100.0100 #### [facility] [address] [place], [address] Creatinine [Mass/Vol] 1.16 mg/dL Normal 0.70-1.30 [facility] Comment on above: Result Comment: The validity of the calculated GFR GFRAA in patients over 70 years has not been determined. Clinical correlation is essential. Performed By: #### L 500.2500, L501.2450, L100.0100 #### [facility] [address] [place], [address] ECRCL 53.16 ml/min [facility] Comment on above: Performed By: #### L 500.2500, L501.2450, L100.0100 #### [facility] [address] [place], [address] EST GFR - AA 82 mL/min Normal >60 [facility] Comment on above: Result Comment: Afri can Bangladeshi GFR Calc Performed By: #### L 500.2500, L501.2450, L100.0100 #### [facility] [address] [place], [address] GAP 3 Low 5-15 [facility] Comment on above: Performed By: #### L 500.2500, L501.2450, L100.0100 #### [facility] [address] [place], [address] GFR/1.73 sq M.predicted among non-blacks MDRD (S/P/Bld) [Vol rate/Area] 68 mL/min/{1.73_m2} Normal >60 [facility] Comment on above: Result Comment: Non- GFR Calc Performed By: #### L 500.2500, L501.2450, L100.0100 #### [facility] [address] [place], [address] Glucose [Mass/Vol] 54 mg/dL Low 74-106 [facility] Comment on above: Performed By: #### L 500.2500, L501.2450, L100.0100 #### [facility] [address] [place], [address] Potassium [Moles/Vol] 3.7 mmol/L Normal 3.5-5.1 [facility] Comment on above: Performed By: #### L 500.2500, L501.2450, L100.0100 #### [facility] [address] [place], [address] Sodium [Moles/Vol] 139 mmol/L Normal 136-145 [facility] Comment on above: Performed By: #### L 500.2500, L501.2450, L100.0100 #### [facility] [address] [place], [address] Urea nitrogen [Mass/Vol] 10 mg/dL Normal 7-18 [facility] Comment on above: Performed By: #### L 500.2500, L501.2450, L100.0100 #### [facility] [address] [place], [address] Basophil percentageOrdered B y: Vinod Gomez on 06-16-2023 Basophil percentage 10-25 SEEN /hpf 0-5 [facility] Basophils/100 WBC (Bld) 1.1 % 0-1 [facility] Chloride [Moles/Vol] 105 mmol/L 98-107 [facility] Eosinophils/100 WBC (Bld) 6.0 % 0-5 [facility] Glucose [Mass/Vol] 54 mg/dL 74-106 [facility] Hemoglobin (Bld) [Mass/Vol] 15.5 g/dL 13.0-16.5 [facility] Monocytes/100 WBC (Bld) 10.4 % 0-10 [facility] Neutrophils (Bld) [#/Vol] 1.7 10*3/uL 2.0-7.7 [facility] Neutrophils/100 WBC (Bld) 36.8 % 47-70 [facility] Potassium [Moles/Vol] 3.7 mmol/L 3.5-5.1 [facility] Sodium [Moles/Vol] 139 mmol/L 136-145 [facility] WBC (Bld) [#/Vol] 4.5 10*3/uL 4.4-11.0 [facility] Bilirubin Test strip Ql (U)O rdered By: Vinod Gomez on 06-16-2023 Bilirubin Ql (U) Negative Negative [facility] CBC W/Diff, Automatedon Absolute Lymph 2.05 X10 3/uL Normal 0.83-4.51 [facility] Comment on above: Performed By: #### L 500.2500, L501.2450, L100.0100 #### [facility] [address] [place], [address] Absolute Neut 1.7 X10 3/uL Low 2.0-7.7 [facility] Comment on above: Performed By: #### L 500.2500, L501.2450, L100.0100 #### [facility] [address] [place], [address] Basophils/100 WBC (Bld) 1.1 % High 0-1 [facility] Comment on above: Performed By: #### L 500.2500, L501.2450, L100.0100 #### [facility] [address] [place], [address] Eosinophils/100 WBC (Bld) 6.0 % High 0-5 [facility] Comment on above: Performed By: #### L 500.2500, L501.2450, L100.0100 #### [facility] [address] [place], [address] Erythrocyte distribution width (RBC) [Ratio] 15.0 % High 11.6-14.6 [facility] Comment on above: Performed By: #### L 500.2500, L501.2450, L100.0100 #### [facility] [address] [place], [address] Hematocrit (Bld) [Volume fraction] 45.4 % Normal 40-54 [facility] Comment on above: Performed By: #### L 500.2500, L501.2450, L100.0100 #### [facility] [address] [place], [address] Hemoglobin (Bld) [Mass/Vol] 15.5 g/dL Normal 13.0-16.5 [facility] Comment on above: Performed By: #### L 500.2500, L501.2450, L100.0100 #### [facility] [address] [place], [address] IG% 0.200 Normal 0.0-0.9 [facility] Comment on above: Result Comment: IG% - Immature Granulocytes (promyelocytes, myelocytes and metamyelocytes) > 1% indicates that a LEFT SHIFT is Present. Performed By: #### L 500.2500, L501.2450, L100.0100 #### [facility] [address] [place], [address] Lymphocytes/100 WBC (Bld) 45.5 % High 19-41 [facility] Comment on above: Performed By: #### L 500.2500, L501.2450, L100.0100 #### [facility] [address] [place], [address] MCH (RBC) [Entitic mass] 29.3 pg Normal 27.0-32.0 [facility] Comment on above: Performed By: #### L 500.2500, L501.2450, L100.0100 #### [facility] [address] [place], [address] MCHC (RBC) [Mass/Vol] 34.1 g/dL Normal 32-36 [facility] Comment on above: Performed By: #### L 500.2500, L501.2450, L100.0100 #### [facility] [address] [place], [address] MCV (RBC) [Entitic vol] 85.8 fL Normal 80-94 [facility] Comment on above: Performed By: #### L 500.2500, L501.2450, L100.0100 #### [facility] [address] [place], [address] Monocytes/100 WBC (Bld) 10.4 % High 0-10 [facility] Comment on above: Performed By: #### L 500.2500, L501.2450, L100.0100 #### [facility] [address] [place], [address] Neutrophils/100 WBC (Bld) 36.8 % Low 47-70 [facility] Comment on above: Performed By: #### L 500.2500, L501.2450, L100.0100 #### [facility] [address] [place], [address] Nucleated RBC (Bld) [#/Vol] 0 10*3/uL Normal 0-5 [facility] Comment on above: Performed By: #### L 500.2500, L501.2450, L100.0100 #### [facility] [address] [place], [address] Platelet mean volume (Bld) [Entitic vol] 9.5 fL Normal 6.2-12.0 [facility] Comment on above: Performed By: #### L 500.2500, L501.2450, L100.0100 #### [facility] [address] [place], [address] Platelets (Bld) [#/Vol] 268 10*3/uL Normal 150-450 [facility] Comment on above: Performed By: #### L 500.2500, L501.2450, L100.0100 #### [facility] [address] [place], [address] RBC (Bld) [#/Vol] 5.29 10*6/uL Normal 4.6-6.2 [facility] Comment on above: Performed By: #### L 500.2500, L501.2450, L100.0100 #### [facility] [address] [place], [address] RDW SD 47.3 fl High 35.1-43.9 [facility] Comment on above: Performed By: #### L 500.2500, L501.2450, L100.0100 #### [facility] [address] [place], [address] WBC (Bld) [#/Vol] 4.5 10*3/uL Normal 4.4-11.0 [facility] Comment on above: Performed By: #### L 500.2500, L501.2450, L100.0100 #### [facility] [address] [place], [address] Determination of erythrocyte mean corpuscular volume (MCV)Ordered By: Vinod Gomez on 06-16-2023 MCV (RBC) [Entitic vol] 85.8 fL 80-94 [facility] Emergency Department Summary on 06-16-2023 Emergency Department Summary [facility] Medical Records Department [address] [place] [address] Emergency Department Summary 06/16/23 MR#: [id number] Acct: [id number] Name: FAM DELUNA Jr. Rep #: [id number] : 1960 62 From: Vinod Gomez DO PCP: Care Physician,No Primary Status:DEP ER Location: ED HPI History of Present Illness Chief Complaint: Male Pain/Injury Informant: patient Pain Onset: Days (2) Context: Gradual Onset Timing: Continuous Worsened by: Nothing Relieved by: Nothing Narrative Narrative: Patient presents with testicular pain that has been getting worse over the past 2 days. Patient states it feels like aching in his right testicle. Patient states it radiates into his left testicle at times. Patient admits to decreased appetite. Patient states nothing makes his pain better and nothing makes it worse. Patient denies any discharge or drainage. Patient denies any fevers or chills. Patient denies any nausea or vomiting. Patient denies any dysuria or hematuria. [facility] Medical History COVID Home Medications ibuprofen 600 mg tablet 600 mg PO Q6H PRN PRN fever or pain #20 tabs 09/11/21 [Rx Last Taken Unknown] pantoprazole 40 mg tablet,delayed release (Protonix) 40 mg PO DAILY #30 tabs 08/11/22 [Rx Last Taken Unknown] ciprofloxacin HCl 500 mg tablet 500 mg PO BID #14 TABLETS 06/16/23 [Rx Last Taken Unknown] Allergy/AdvReac Type Severity Reaction Status Date / Time morphine AdvReac Other Verified 08/11/22 12:07 Family History Brother Kidney disease Unknown Kidney disease Unknown Kidney disease Surgical History History of tonsillectomy Social History household members: none current occupational status: employed current occupation: works at the [employer] Smoking Status: Current every day smoker tobacco type: cigars per week: 35 Tobacco: How many years used: 37 Electronic Cigarette Use: not used alcohol intake: former year quit: 2004 substance use type: marijuana what type of physical activity do you participate in: none do you feel safe at home: Yes ROS ROS ED Constitutional Constitutional ED: Denies chills or fever(s) Eyes Eyes: Denies blurry vision or change in vision ENT ENT ED: Reports rhinorrhea; Denies sore throat Cardiovascular Cardiovascular: Denies chest pain or palpitations Respiratory/Chest Respiratory/Chest: Denies cough or dyspnea Gastrointestinal Gastrointestinal: Reports abdominal pain; Denies nausea or vomiting Genitourinary Genitourinary ED: Denies dysuria or hematuria Musculoskeletal Musculoskeletal: Denies back pain or neck pain Integumentary Denies abscess or rash Neurologic Neurologic: Denies headache(s) or weakness Allergic/Immunologic Allergic/Immunologic ED: Denies mouth swelling or urticaria EXAM Physical Exam Const Vital Signs: 06/16/23 15:38 06/16/23 17:37 06/16/23 19:00 Temperature 97.6 F L 98.4 F Temperature Source Temporal Temporal Pulse Rate 79 78 78 Respiratory Rate 17 16 16 Blood Pressure 124/96 H 142/76 H Blood Pressure Mean 105 98 Pulse Ox 100 99 98 Oxygen Delivery Method Room Air Room Air 06/16/23 21:00 Temperature 97 F L Temperature Source Temporal Pulse Rate 66 Respiratory Rate 16 Blood Pressure 138/64 H Blood Pressure Mean 88 Pulse Ox 95 Oxygen Delivery Method Room Air Positive well nourished and well developed General Appearance ED: well developed and NAD HEENT Reports moist mucous membranes normocephalic and atraumatic Neck supple and no JVD Resp normal respiratory effort and clear to auscultation bilaterally Cardio regular rate and regular rhythm GI non-distended Palpation: soft and tender epigastric, LLQ, RLQ, LUQ, RUQ, periumbilical and suprapubic; Negative for guarding Narrative: There is tenderness over the epididymis of the testicles bilaterally. There is a vertical lie of the testes bilaterally. There is no edema of the testicles. There is no inguinal hernia palpated. There are no external penile lesions noted. Neuro oriented x3, CN's II-XII intact bilaterally, moves all extremities, no focal motor deficits and no sensory deficits noted Sensorium / Orientation: alert Motor Exam: strength 5/5 throughout Psych mental status grossly normal MDM MDM MDM Narrative Medical decision making narrative: Differential diagnosis includes gastritis, pancreatitis, gastroenteritis, peptic ulcer disease, urinary tract infection, pyelonephritis, epididymitis, and orchitis. CBC will be obtained to assess for leukocytosis and anemia. Ba (more content not included)... [facility] Erythrocyte distribution wid th ratioOrdered By: Vinod Gomez on 06-16-2023 Erythrocyte distribution width (RBC) [Ratio] 15.0 % 11.6-14.6 [facility] Erythrocyte distribution wid th standard deviationOrdered By: Vinod Gomez on 06-16-2023 Erythrocyte distribution width (RBC) [Entitic vol] 47.3 fL 35.1-43.9 [facility] Hematocrit Auto (Bld) [Volum e fraction]Ordered By: Vinod Gomez on 06-16-2023 Hematocrit (Bld) [Volume fraction] 45.4 % 40-54 [facility] Immature granulocytes/100 WB C Auto (Bld)Ordered By: Vinod Gomez on 06-16-2023 Immature granulocytes/100 WBC (Bld) 0.200 % 0.0-0.9 [facility] Comment on above: IG% - Immature Granu locytes (promyelocytes, myelocytes and metamyelocytes) > 1% indicates that a LEFT SHIFT is Present. Ketones Test strip Ql (U)Ord ered By: Vinod Gomez on 06-16-2023 Ketones Ql (U) 5 mg/dl Negative [facility] - Chemistry and C hemistry - challengeOrdered By: Vinod Gomez on 06-16-2023 CO2 [Moles/Vol] 31.0 mmol/L 21.0-32.0 [facility] Lipase [Catalytic activity/Vol] 31 U/L 13-75 [facility] Comment on above: Please note:LIPASE r evised reference range effective 22. New Lipase methodology. Expected to produce lower values than the previous assay method. NEW Reference Range: 13 - 75 U/L Urea nitrogen/Creatinine [Mass ratio] 8.6 mg/mg 10-20 [facility] - Hematology and Cell countsOrdered By: Vinod Gomez on 06-16-2023 MCH (RBC) [Entitic mass] 29.3 pg 27.0-32.0 [facility] MCHC (RBC) [Mass/Vol] 34.1 g/dL 32-36 [facility] Nucleated RBC/100 WBC (Bld) [Ratio] 0 % 0-5 [facility] Platelet mean volume (Bld) [Entitic vol] 9.5 fL 6.2-12.0 [facility] Platelets (Bld) [#/Vol] 268 10*3/uL 150-450 [facility] Lipaseon 06-16-2023 Lipase [Catalytic activity/Vol] 31 U/L Normal 13-75 [facility] Comment on above: Result Comment: Sita gonzales note: LIPASE revised reference range effective 22. New Lipase methodology. Expected to produce lower values than the previous assay method. NEW Reference Range: 13 - 75 U/L Performed By: #### L 500.2500, L501.2450, L100.0100 #### [facility] [address] [place] [address], [address] Mucus LM Ql (Urine sed)Order ed By: Vinod Gomez on 06-16-2023 Mucus Ql (Urine sed) 0 SEEN /hpf [facility] Nitrite Test strip Ql (U)Ord ered By: Vinod Gomez on 06-16-2023 Nitrite Ql (U) Negative Negative [facility] No Panel InformationOrdered By: Vinod Gomez on 06-16-2023 Urine RBC 0-5 SEEN /hpf 0-5 [facility] Estimated Creatinine Clearance Calc 53.16 ml/min [facility] Estimated GFR (MDRD) Amer 82 mL/min >60 [facility] Comment on above: GFR Calc Estimated GFR (MDRD) Non-Af Amer 68 mL/min >60 [facility] Comment on above: Non- GFR Calc Protein Test strip Ql (U)Ord ered By: Vinod Gomez on 06-16-2023 Protein Ql (U) Negative Negative [facility] RBC Auto (Bld) [#/Vol]Ordere d By: Vinod Gomez on 06-16-2023 RBC (Bld) [#/Vol] 5.29 10*6/uL 4.6-6.2 [facility] Serum or plasma calcium cher urement (mass/volume)Ordered By: Vinod Gomez on 06-16-2023 Calcium [Mass/Vol] 9.1 mg/dL 8.5-10.1 [facility] Serum or plasma creatinine m easurement (mass/volume)Ordered By: Vinod Gomez on 06-16-2023 Creatinine [Mass/Vol] 1.16 mg/dL 0.70-1.30 [facility] Comment on above: The validity of the calculated GFR & GFRAA in patients over 70 years has not been determined. Clinical correlation is essential. Serum or plasma urea nitroge n measurement (mass/volume)Ordered By: Vinod Gomez on 06-16-2023 Urea nitrogen [Mass/Vol] 10 mg/dL 7-18 [facility] Squamous epithelial cells de tection in urine sediment by light microscopyOrdered By: Vinod Gomez on 06-16-2023 Epithelial cells.squamous LM Ql (Urine sed) 0-5 SEEN /hpf 0-5 [facility] Thin prep Papanicolaou smear with manual screeningOrdered By: Vinod Gomez on 06-16-2023 Thin prep Papanicolaou smear with manual screening 3 5-15 [facility] Urinalysis, Completeon 06-15 AMORPHOUS 1+ URATE Normal [facility] Comment on above: Order Comment: SEAN ECKERT TO SPECIFY Performed By: #### L 400.0001 ####[facility] [address] [place], [place], [id number] BACTERIA RARE Normal None Seen [facility] Comment on above: Order Comment: SEAN ECKERT TO SPECIFY Performed By: #### L 400.0001 ####[facility] [address] [place], [address] EPI,SQUAMOUS 0-5 SEEN Normal 0-5 [facility] Comment on above: Order Comment: SEAN ECKERT TO SPECIFY Performed By: #### L 400.0001 ####[facility] [address] [place], [address] RBC 0-5 SEEN Normal 0-5 [facility] Comment on above: Order Comment: SEAN CTOR TO SPECIFY Performed By: #### L 400.0001 ####[facility] [address] [place], [place], [id number] WBC 10-25 SEEN Normal 0-5 [facility] Comment on above: Order Comment: SEAN CTOR TO SPECIFY Performed By: #### L 400.0001 ####[facility] [address] [place], [place], [id number] Mucus Ql (Urine sed) 0 SEEN Normal [facility] Comment on above: Order Comment: SEAN CTOR TO SPECIFY Performed By: #### L 400.0001 ####[facility] [address] [place], [place], [id number] Urine blood detectionOrdered By: Vinod Gomez on 06-16-2023 RBC Ql (U) 10 /ul Negative [facility] Urine clarityOrdered By: Roselyn Gomez on 06-16-2023 Clarity (U) Sl. Cloudy Clear [facility] Urine color determinationOrd ered By: Vinod Gomez on 06-16-2023 Color (U) Yellow Yellow [facility] Urine glucose detectionOrder ed By: Vinod Gomez on 06-16-2023 Glucose Ql (U) Normal mg/dl Normal [facility] Urine leukocyte esterase det ection by dipstickOrdered By: Vinod Gomez on 06-16-2023 Leukocyte esterase Test strip Ql (U) 500 /ul Negative [facility] Urine pHOrdered By: Vinod brennan on 06-16-2023 pH (U) 6.5 [pH] 5.0 - 8.0 [facility] Urine sediment bacteria coun t by microscopy (number/high power field)Ordered By: Vinod Gomez on 06-16-2023 Bacteria LM.HPF (Urine sed) [#/Area] RARE /hpf None Seen [facility] Urine specific gravity measu rementOrdered By: Vinod Gomez on 06-16-2023 Specific gravity (U) [Rel density] 1.010 1.002-1.030 [facility] Urine urobilinogen measureme ntOrdered By: Vinod Gomez on 06-16-2023 Urobilinogen Ql (U) 4 mg/dl Normal [facility] Absolute lymphocyte countOrd ered By: Magali Urban on 09-10-2022 Lymphocytes Auto (Unsp spec) [#/Vol] 1.55 10*3/uL 0.83-4.51 [facility] Basophil percentageOrdered B y: Magali Urban on 09-10-2022 Basophils/100 WBC (Bld) 1.0 % 0-1 [facility] Bilirubin [Mass/Vol] 0.30 mg/dL 0.20-1.00 [facility] Comment on above: For patients on eltr ombopag therapy, use of Dimension [place] TBIL is not recommended. Chloride [Moles/Vol] 107 mmol/L 98-107 [facility] Eosinophils/100 WBC (Bld) 5.0 % 0-5 [facility] Glucose [Mass/Vol] 103 mg/dL 74-106 [facility] Comment on above: Fasting Glucose resu lt from 100 to 125 mg/dL suggests IMPAIRED HOMEOSTASIS per A.D.A. criteria. Neutrophils (Bld) [#/Vol] 2.0 10*3/uL 2.0-7.7 [facility] Neutrophils/100 WBC (Bld) 48.4 % 47-70 [facility] Potassium [Moles/Vol] 4.2 mmol/L 3.5-5.1 [facility] Protein [Mass/Vol] 7.3 g/dL 6.4-8.2 [facility] Sodium [Moles/Vol] 140 mmol/L 136-145 [facility] WBC (Bld) [#/Vol] 4.2 10*3/uL 4.4-11.0 [facility] Blood erythrocytes count (nu mber/volume)Ordered By: Magali Urban on 09-10-2022 RBC (Bld) [#/Vol] 4.84 10*6/uL 4.6-6.2 [facility] Blood hemoglobin measurement (mass/volume)Ordered By: Magali Urban on 09-10-2022 Hemoglobin (Bld) [Mass/Vol] 14.5 g/dL 13.0-16.5 [facility] Blood lymphocytes/100 leukoc ytesOrdered By: Magali Urban on 09-10-2022 Lymphocytes/100 WBC (Bld) 36.8 % 19-41 [facility] Blood monocytes/100 leukocyt esOrdered By: Magali Urban on 09-10-2022 Monocytes/100 WBC (Bld) 8.6 % 0-10 [facility] Blood platelet mean volumeOr dered By: Magali Urban on 09-10-2022 Platelet mean volume (Bld) [Entitic vol] 9.3 fL 6.2-12.0 [facility] Determination of erythrocyte mean corpuscular volume (MCV)Ordered By: aMgali Urban on 09-10-2022 MCV (RBC) [Entitic vol] 88.8 fL 80-94 [facility] Direct bilirubinOrdered By: Magali Urban on 09-10-2022 Bilirubin.direct [Mass/Vol] 0.09 mg/dL 0.00-0.30 [facility] Hematocrit Auto (Bld) [Volum e fraction]Ordered By: Magali Urban on 09-10-2022 Hematocrit (Bld) [Volume fraction] 43.0 % 40-54 [facility] Laboratory - Chemistry and C hemistry - challengeOrdered By: Magali Urban on 09-10-2022 ALP [Catalytic activity/Vol] 71 U/L 45-117 [facility] ALT [Catalytic activity/Vol] 17 U/L 16-61 [facility] CO2 [Moles/Vol] 32.0 mmol/L 21.0-32.0 [facility] Globulin (S) [Mass/Vol] 4.2 g/dL 2.2-4.2 [facility] Urea nitrogen/Creatinine [Mass ratio] 10.6 mg/mg 10-20 [facility] Laboratory - Hematology and Cell countsOrdered By: Magali Urban on 09-10-2022 Erythrocyte distribution width (RBC) [Entitic vol] 47.8 fL 35.1-43.9 [facility] Erythrocyte distribution width (RBC) [Ratio] 14.7 % 11.6-14.6 [facility] Immature granulocytes/100 WBC (Bld) 0.200 % 0.0-0.9 [facility] Comment on above: IG% - Immature Granu locytes (promyelocytes, myelocytes and metamyelocytes) > 1% indicates that a LEFT SHIFT is Present. MCH (RBC) [Entitic mass] 30.0 pg 27.0-32.0 [facility] Nucleated RBC/100 WBC (Bld) [Ratio] 0 % 0-5 [facility] MCHC Auto (RBC) [Mass/Vol]Or dered By: Magali Urban on 09-10-2022 MCHC (RBC) [Mass/Vol] 33.7 g/dL 32-36 [facility] No Panel InformationOrdered By: Magali Urban on 09-10-2022 Estimated Creatinine Clearance Calc 59.46 ml/min [facility] Estimated GFR (MDRD) Amer 85 mL/min >60 [facility] Comment on above: GFR Calc Estimated GFR (MDRD) Non-Af Amer 70 mL/min >60 [facility] Comment on above: Non- GFR Calc Platelets bldOrdered By: Ashly Urban on 09-10-2022 Platelets (Bld) [#/Vol] 278 10*3/uL 150-450 [facility] Serum or plasma albumin cher urement (mass/volume)Ordered By: Magali Urban on 09-10-2022 Albumin [Mass/Vol] 3.1 g/dL 3.2-5.0 [facility] Serum or plasma calcium cher urement (mass/volume)Ordered By: Magali Urban on 09-10-2022 Calcium [Mass/Vol] 9.0 mg/dL 8.5-10.1 [facility] Serum or plasma creatinine m easurement (mass/volume)Ordered By: Magali Urban on 09-10-2022 Creatinine [Mass/Vol] 1.13 mg/dL 0.70-1.30 [facility] Comment on above: The validity of the calculated GFR & GFRAA in patients over 70 years has not been determined. Clinical correlation is essential. Serum or plasma urea nitroge n measurement (mass/volume)Ordered By: aMgali Urban on 09-10-2022 Urea nitrogen [Mass/Vol] 12 mg/dL 7-18 [facility] Thin prep Papanicolaou smear with manual screeningOrdered By: Magali Urban on 09-10-2022 Thin prep Papanicolaou smear with manual screening 16 U/L 15-37 [facility] Thin prep Papanicolaou smear with manual screening 1 5-15 [facility] CNOVon 01-30-2022 CNOV Office Visit ([facility] ) FAM DELUNA ([id number]) 1960 M Date Time Provider Department 01/30/22 2:15 PM JOSH SCHROEDER [facility] During your visit today, we recorded the following information about you: Temperature Pulse Respiration Blood pressure 97.3 degrees 67/minute 18/minute 128/82 Weight 59.2 kg Josh Schroeder APRN.CNP 01/30/2022 2:44 PM Signed Subjective HPI HPI Fam Irving Mikie is a 61 year old male who presents today for CC of cough, rib pain. This started 1 week ago. Has tried otc medication for relief. Symptoms are worsened by nothing. Risk factors smoker. Seen in ER for this, dx viral. .Patient presents with: sharp pains in right side of back: X 1 week PAST MEDICAL HISTORY Diagnosis Date GERD (gastroesophageal reflux disease) PAST SURGICAL HISTORY Procedure Laterality Date COLONOSCOPY FLX DX W/COLLJ SPEC WHEN PFRMD 06/01/2003 normal colonoscopy EGD 2003 TONSILLECTOMY PRIMARY/SECONDARY Tonsillectomy ALLERGIES Morphine MEDICATIONS predniSONE (DELTASONE) 20 mg tablet Take 2 tablets by mouth once daily for 5 days. Ranitidine HCl 300 mg ORAL tablet Take 1 tablet by mouth daily at bedtime. For heartburn (Patient not taking: Reported on 12/12/2019 ) cyclobenzaprine (FLEXERIL) 10 mg ORAL tablet Take 1 tablet by mouth three times daily as needed for Muscle Spasm. (Patient not taking: Reported on 01/30/2022) hydrocortisone 2.5 % RECTAL rectal cream by RECTAL route twice daily. for hemorrhoids (Patient not taking: Reported on 12/12/2019 ) FAMILY HISTORY Problem Relation Age of Onset Kidney Disease Brother Fatal kidney failure Diabetes Mother Allergies Mother Social History Tobacco Use Smoking status: Every Day Packs/day: 0.50 Years: 22.00 Pack years: 11.00 Types: Cigarettes, Cigars Smokeless tobacco: Never Substance Use Topics Alcohol use: No Drug use: No ROS Objective Blood pressure 128/82, pulse 67, temperature 36.3 ?C (97.3 ?F), temperature source Tympanic, resp. rate 18, weight 59.2 kg (130 lb 9.6 oz), SpO2 98 %. Physical Exam Constitutional: General: He is not in acute distress. Appearance: He is not toxic-appearing or diaphoretic. HENT: Head: Normocephalic and atraumatic. Cardiovascular: Rate and Rhythm: Normal rate and regular rhythm. Heart sounds: Normal heart sounds, S1 normal and S2 normal. Pulmonary: Effort: Pulmonary effort is normal. Breath sounds: Normal breath sounds. Neurological: Mental Status: He is alert and oriented to person, place, and time. Gait: Gait is intact. ASSESSMENT/PLAN: 1. Rib pain on right side - ICD9: 786.50, ICD10: R07.81 Declines xray Steroids ordered F/u for severe/worsening s/s. - PREDNISONE 20 MG TABLET Josh Schroeder APRN.KAREN Allergies As of Date: 01/30/2022 Noted Allergy Reaction MORPHINE 06/26/2020 1 - Mental Status Change Date Reviewed: 01/30/2022 Reviewed by: Josh Schroeder APRN.STENOGRAPHIC COURT REPORTER - Fully Assessed Reason for Visit: sharp pains in right side of back [Other] Cmt: X 1 week Primary Visit Diagnosis:Rib pain on right side [R07.81] Order(s):predniSONE (DELTASONE) 20 mg tabletTake 2 tablets by mouth once daily for 5 days.Disp: 10 tabletRfl: 0 Prescriptions as of 01/30/2022 - predniSONE (DELTASONE) 20 mg tablet Take 2 tablets by mouth once daily for 5 days. - Ranitidine HCl 300 mg ORAL tablet Take 1 tablet by mouth daily at bedtime. For heartburn - cyclobenzaprine (FLEXERIL) 10 mg ORAL tablet Take 1 tablet by mouth three times daily as needed for Muscle Spasm. - hydrocortisone 2.5 % RECTAL rectal cream by RECTAL route twice daily. for hemorrhoids Problem List As Of Date 01/30/2022 Noted Resolved GASTRITIS/DUODEN NOS W/O HEMORRH [K29.70, K29.9*02/07/2005 Tobacco abuse [Z72.0] 03/14/2011 GERD (gastroesophageal reflux disease) [K21.9] 03/14/2011 Back pain [M54.9] 03/14/2011 External hemorrhoids [K64.4] 03/28/2011 Prescriptions ordered this encounter Disp Refills Start End PREDNISONE 20 MG TABLET 10 t* 0 01/30/2022 02/04/2022 Route: ORAL Sig: Take 2 tablets by mouth once daily for 5 days. Letter Text Encounter Status:Closed by JOSH SCHROEDER on 01/30/22 [facility] Janny 09-17-2021 [facility] Telephone ([facility]) FAM DELUNA ([id number]) 1960 M Date Time Provider Department 09/17/21 EMILIA MCDOWELL [facility] During your visit today, we recorded the following information about you: Emilia Mcdowell APRN.[facility] 09/17/2021 7:16 AM Signed Patient positive for covid please notify and instruct to quarantine for the first 5 days of symptoms then mask for next 5 days ......No follow-ups on file. Up if symptoms worsen. Cheryl Breaux LPN 09/17/2021 9:11 AM Signed Phone call placed patient advised (see prior provider encounter) Patient verbalized understanding, agreed with plan of care. Cheryl Cat RN 09/17/2021 9:12 AM Signed Patient notified of results and provider's instructions. Patient verbalizes understanding. Hilda Cat RN Allergies As of Date: 09/17/2021 Noted Allergy Reaction MORPHINE 06/26/2020 1 - Mental Status Change Date Reviewed: 08/08/2020 Reviewed by: Nirmala Quesada DO - Fully Assessed Reason for Visit: Results [95] Prescriptions as of 09/17/2021 - Ranitidine HCl 300 mg ORAL tablet Take 1 tablet by mouth daily at bedtime. For heartburn - cyclobenzaprine (FLEXERIL) 10 mg ORAL tablet Take 1 tablet by mouth three times daily as needed for Muscle Spasm. - hydrocortisone 2.5 % RECTAL rectal cream by RECTAL route twice daily. for hemorrhoids Problem List As Of Date 09/17/2021 Noted Resolved GASTRITIS/DUODEN NOS W/O HEMORRH [K29.70, K29.9*02/07/2005 Tobacco abuse [Z72.0] 03/14/2011 GERD (gastroesophageal reflux disease) [K21.9] 03/14/2011 Back pain [M54.9] 03/14/2011 External hemorrhoids [K64.4] 03/28/2011 Encounter Status:Closed by CHERYL BERAUX LPN on 09/17/21 [facility] CNOVpau 09-16-2021 CN Office Visit ([facility]WSTR ) FAM DEULNA ([id number]) 1960 M Date Time Provider Department 09/16/21 12:45 PM KAYLA SILVA [facility] During your visit today, we recorded the following information about you: Temperature Pulse Respiration Blood pressure 97.8 degrees 63/minute 16/minute 98/60 Weight 54.4 kg Kayla Silva APRN.STENOGRAPHIC COURT REPORTER 09/16/2021 1:39 PM Signed Subjective HPI Nontoxic-appearing male presents urgent care requesting COVID-19 testing. Illness onset 6 days ago. States he needs a negative COVID test before returning to work. States he was seen in the ER over the weekend. Negative COVID-19 test. States he did have body aches chills loss of appetite loose stools. States he does feel better now. Symptoms have resolved. Denies any pain. No OTC medications. Denies any fever body aches chills productive cough chest pain shortness of breath pleuritic pain hemoptysis nausea vomiting abdominal pain rashes or change in bowel or bladder habits past medical history prescription medication use allergies reviewed. .Patient presents with: Pain: Pt reported bodyaches pain rated 5x, x6 days loss of appetite PAST MEDICAL HISTORY Diagnosis Date GERD (gastroesophageal reflux disease) PAST SURGICAL HISTORY Procedure Laterality Date COLONOSCOPY FLX DX W/COLLJ SPEC WHEN PFRMD 06/01/2003 normal colonoscopy EGD 2003 TONSILLECTOMY PRIMARY/SECONDARY Tonsillectomy ALLERGIES Morphine MEDICATIONS cyclobenzaprine (FLEXERIL) 10 mg ORAL tablet Take 1 tablet by mouth three times daily as needed for Muscle Spasm. Ranitidine HCl 300 mg ORAL tablet Take 1 tablet by mouth daily at bedtime. For heartburn (Patient not taking: Reported on 12/12/2019 ) hydrocortisone 2.5 % RECTAL rectal cream by RECTAL route twice daily. for hemorrhoids (Patient not taking: Reported on 12/12/2019 ) FAMILY HISTORY Problem Relation Age of Onset Kidney Disease Brother Fatal kidney failure Diabetes Mother Allergies Mother Social History Tobacco Use Smoking status: Every Day Packs/day: 0.50 Years: 22.00 Pack years: 11.00 Types: Cigarettes, Cigars Smokeless tobacco: Never Substance Use Topics Alcohol use: No Drug use: No BP 98/60 Pulse 63 Temp 36.6 ?C (97.8 ?F) Resp 16 Wt 54.4 kg (120 lb) SpO2 99% BMI 18.25 kg/m? Patient states baseline blood pressure is high 90s low 100s. Review of Systems Constitutional: Negative for chills, fever and malaise/fatigue. HENT: Negative for congestion, ear discharge, ear pain, sinus pain and sore throat. Eyes: Negative for blurred vision, pain, discharge and redness. Respiratory: Negative for cough, hemoptysis, sputum production, shortness of breath, wheezing and stridor. Cardiovascular: Negative for chest pain. Gastrointestinal: Negative for abdominal pain, diarrhea, nausea and vomiting. Musculoskeletal: Negative for myalgias. Skin: Negative for itching and rash. Neurological: Negative for dizziness and headaches. Objective Physical Exam Constitutional: General: He is not in acute distress. Appearance: He is not diaphoretic. HENT: Head: Normocephalic. Eyes: Conjunctiva/sclera: Conjunctivae normal. Pupils: Pupils are equal, round, and reactive to light. Cardiovascular: Rate and Rhythm: Normal rate and regular rhythm. Heart sounds: Normal heart sounds. Pulmonary: Effort: Pulmonary effort is normal. No tachypnea, accessory muscle usage or respiratory distress. Breath sounds: Normal breath sounds. No stridor. No wheezing, rhonchi or rales. Abdominal: Palpations: Abdomen is soft. Tenderness: There is no abdominal tenderness. Musculoskeletal: Cervical back: Normal range of motion and neck supple. No rigidity or tenderness. Lymphadenopathy: Cervical: No cervical adenopathy. Skin: General: Skin is warm and dry. Neurological: Mental Status: He is alert and oriented to person, place, and time. ASSESSMENT/PLAN: 1. Viral illness - ICD9: 079.99, ICD10: B34.9 - 2019 CORONAVIRUS Patient diagnosed with viral illness. COVID-19 test will be obtained. Alternative diagnosis discussed. Patient was educated on supportive therapies. Patient will follow up with primary care provider as needed. Patient was instructed to immediately proceed to emergency room for any new, worsening, or symptoms lasting longer than anticipated. The patient's clinical presentation is otherwise unremarkable at this time. Based on exam and clinical finding, the patient is stable for discharge. Plan of care was discussed with patient. Patient verbalizes understanding and agrees to plan of care. This note was generated using [employer]Drill[employer] software. It may contain errors in wording, punctuation, or spelling. Kayla Silva APRN.KAREN Silva APRN.CNP 09/16/2021 12:59 PM Signed How to Manage Common Symptoms Associated with COVID for Adults Fever- Fe (more content not included)... Normal [facility] SARS-CoV-2 RNA Resp Ql CHANTEL+p sheri 09-16-2021 SARS-CoV-2 (COVID-19) RNA CHANTEL+probe Ql (Resp) COVID 19 RESULT: SARS-CoV-2 (Agent of COVID-19) Detected by RT-PCR or equivalent method. This test was developed and its performance characteristics determined by [facility]. This test has been authorized by FDA under an Emergency Use Authorization (EUA). This test has been validated in accordance with the FDA's Guidance Document Policy for Diagnostics Testing in Laboratories Certified to Perform High Complexity Testing under CLIA prior to Emergency use Authorization for Coronavirus Disease 2019 during the Public Health Emergency issued on April 09, 2019. Test performed by [facility], [facility] [place], [address] [place] [address]. Normal [facility] Comment on above: Performed By: #### 9 [id number] #### [facility] CLIA [id number] [address] [place], [place] [address] [place] [address] [place] Absolute lymphocyte counton 05-29-2021 Lymphocytes Auto (Unsp spec) [#/Vol] 1.75 10*3/uL 0.83-4.51 [facility] Work Phone: Basophil percentageon 2021 Basophils/100 WBC (Bld) 0.8 % 0-1 [facility] Work Phone: Chloride [Moles/Vol] 105 mmol/L 98-107 [facility] Work Phone: Eosinophils/100 WBC (Bld) 5.9 % 0-5 [facility] Work Phone: Glucose [Mass/Vol] 105 mg/dL 74-106 [facility] Work Phone: Comment on above: Fasting Glucose resu lt from 100 to 125 mg/dL suggests IMPAIRED HOMEOSTASIS per A.D.A. criteria. Neutrophils (Bld) [#/Vol] 2.4 10*3/uL 2.0-7.7 [facility] Work Phone: Neutrophils/100 WBC (Bld) 47.9 % 47-70 [facility] Work Phone: Potassium [Moles/Vol] 3.7 mmol/L 3.5-5.1 [facility] Work Phone: [phone] Sodium [Moles/Vol] 140 mmol/L 136-145 [facility] Work Phone: WBC (Bld) [#/Vol] 5.1 10*3/uL 4.4-11.0 [facility] Work Phone: Blood erythrocytes count (nu mber/volume)on 05-29-2021 RBC (Bld) [#/Vol] 4.60 10*6/uL 4.6-6.2 [facility] Work Phone: Blood hemoglobin measurement (mass/volume)on 05-29-2021 Hemoglobin (Bld) [Mass/Vol] 13.9 g/dL 13.0-16.5 [facility] Work Phone: Blood lymphocytes/100 leukoc yteson 05-29-2021 Lymphocytes/100 WBC (Bld) 34.7 % 19-41 [facility] Work Phone: Blood monocytes/100 leukocyt eson 05-29-2021 Monocytes/100 WBC (Bld) 10.3 % 0-10 [facility] Work Phone: Blood platelet mean volumeon 05-29-2021 Platelet mean volume (Bld) [Entitic vol] 9.9 fL 6.2-12.0 [facility] Work Phone: Determination of erythrocyte mean corpuscular volume (MCV)on 05-29-2021 MCV (RBC) [Entitic vol] 88.3 fL 80-94 [facility] Work Phone: Glucose Glucometer (BldC) [M ass/Vol]on 05-29-2021 Glucose [Mass/Vol] 107 mg/dL 74-106 [facility] Work Phone: Comment on above: MANAGEMENT OF PATIEN T CARE PER NURSING PROTOCOL Hematocrit Auto (Bld) [Volum e fraction]on 05-29-2021 Hematocrit (Bld) [Volume fraction] 40.6 % 40-54 [facility] Work Phone: Laboratory - Chemistry and C hemistry - challengeon 05-29-2021 CO2 [Moles/Vol] 31.0 mmol/L 21.0-32.0 [facility] Work Phone: Urea nitrogen/Creatinine [Mass ratio] 7.8 mg/mg 10-20 [facility] Work Phone: Laboratory - Hematology and Cell countson 05-29-2021 Erythrocyte distribution width (RBC) [Entitic vol] 46.7 fL 35.1-43.9 [facility] Work Phone: Erythrocyte distribution width (RBC) [Ratio] 14.5 % 11.6-14.6 [facility] Work Phone: Immature granulocytes/100 WBC (Bld) 0.400 % 0.0-0.9 [facility] Work Phone: Comment on above: IG% - Immature Granu locytes (promyelocytes, myelocytes and metamyelocytes) > 1% indicates that a LEFT SHIFT is Present. MCH (RBC) [Entitic mass] 30.2 pg 27.0-32.0 [facility] Work Phone: Nucleated RBC/100 WBC (Bld) [Ratio] 0 % 0-5 [facility] Work Phone: MCHC Auto (RBC) [Mass/Vol]on 05-29-2021 MCHC (RBC) [Mass/Vol] 34.2 g/dL 32-36 [facility] Work Phone: No Panel Informationon 05-29 Estimated Creatinine Clearance Calc 61.06 ml/min [facility] Work Phone: Estimated GFR (MDRD) Amer 83 mL/min >60 [facility] Work Phone: Comment on above: GFR Calc Estimated GFR (MDRD) Non-Af Amer 69 mL/min >60 [facility] Work Phone: Comment on above: Non- GFR Calc Troponin I High Sensitivity 7 pg/mL 3.0-78.0 [facility] Work Phone: Comment on above: Please Note: New [place] t Units and Gender Specific Reference Ranges. For more information see Policy Stat Procedure [place] High Sensitivity Troponin (TNIH) and attachments. Platelets bldon 05-29-2021 Platelets (Bld) [#/Vol] 278 10*3/uL 150-450 [facility] Work Phone: Serum or plasma calcium cher urement (mass/volume)on 05-29-2021 Calcium [Mass/Vol] 8.9 mg/dL 8.5-10.1 [facility] Work Phone: Serum or plasma creatinine m easurement (mass/volume)on 05-29-2021 Creatinine [Mass/Vol] 1.15 mg/dL 0.70-1.30 [facility] Work Phone: Comment on above: The validity of the calculated GFR & GFRAA in patients over 70 years has not been determined. Clinical correlation is essential. Serum or plasma urea nitroge n measurement (mass/volume)on 05-29-2021 Urea nitrogen [Mass/Vol] 9 mg/dL 7-18 [facility] Work Phone: Thin prep Papanicolaou smear with manual screeningon 05-29-2021 Thin prep Papanicolaou smear with manual screening 4 5-15 [facility] Work Phone: CNCOon 08-08-2020 CNCO Letter Text Normal [facility] CNOVon 08-08-2020 CNOV Office Visit (AKURFJames ) FAM DELUNA ([id number]) 1960 M Date Time Provider Department 08/08/20 1:30 PM NIRMALA QUESADA During your visit today, we recorded the following information about you: Weight Height 62.6 kg 1.727 m Nirmala Quesada, DO 08/08/2020 1:44 PM Signed ?? [facility] [place] [facility] LOCATION: [address] [place] [address] ESTABLISHED PATIENT PATIENT INFO: Fam Deluna 59 year old Chief Complaint: Testicular mass HPI Here for one month f/u. Had repeat TUS, no mass visualized. No complaints. 1-Duration: 2020 2-Location: testis 3-Severity: N/A 4-Quality: Not applicable 5-Context: N/A 6-Timing: N/A 7-Modifying factors: No treatment prior to referral 8-Associated signs AND symptoms: no additional symptoms No question data found. PATHOLOGY: NONE LAB: WBC (/hpf) Date Value 05/18/2003 Negative Creatinine Date Value Ref Range Status 06/03/2004 0.8 0.7 - 1.4 mg/dL Final URINE POC No results found for this basename: uglucpoc,ubilipoc,uke tonpoc,usgpoc,uhbpoc, uphpoc,upropoc,uuropo c,unitpoc,uwbcpo- c,ucolpoc,uclarpoc IMAGING: Testicular Ultrasound: IMPRESSION: Slightly heterogeneous echotexture of the left testis without definite mass lesion seen. I have independently reviewed films and my findings are the same. ALLERGIES: ALLERGIES Allergen Reactions - Morphine Mental Status Change MEDICATIONS: Ranitidine HCl 300 mg ORAL tablet Take 1 tablet by mouth daily at bedtime. For heartburn cyclobenzaprine (FLEXERIL) 10 mg ORAL tablet Take 1 tablet by mouth three times daily as needed for Muscle Spasm. hydrocortisone 2.5 % RECTAL rectal cream by RECTAL route twice daily. for hemorrhoids Does the patient take any herbal medications?: No HISTORIES PAST MEDICAL HISTORY Diagnosis Date - GERD (gastroesophageal reflux disease) Smoking Status Reviewed: Yes REVIEW OF SYSTEMS GENERAL: No fever, chills, weight loss, or fatigue. HEAD AND NECK: No blurred vision or Sjogren's syndrome CARDIOVASCULAR: NO CHEST PAIN, PALPITATIONS, ANKLE EDEMA RESPIRATORY: No chronic cough, wheezing, dyspnea, hemoptysis. MUSCULOSKELETAL: NO CHRONIC BACK PAIN, ARTHRITIS, CHRONIC NECK PAIN SKIN: NO VARICOSE VEINS, RASH, ABNORMAL ITCHING BLOOD/LYMPHATIC: No easy bleeding, easy bruising, transfusion Hx NEUROLOGICAL: NO HEADACHES, NUMBNESS, SEIZURES, STROKE PSYCHIATRIC: No depression or inordinate anxiety The remainder of the ROS was negative. PHYSICAL EXAMINATION Ht 172.7 cm (5' 8) Wt 62.6 kg (138 lb) BMI 20.98 kg/m? General appearance: Well appearing, alert, in no acute distress and well-hydrated, well nourished Skin: Skin color, texture, turgor normal, no suspicious rashes or lesions Head: Normocephalic, no masses, lesions, tenderness or abnormalities Abdomen: Normal abdominal exam, Abdomen soft, non-tender. Bowel sounds normal. No masses, organomegaly Genitourinary: MALE EXAM: Exam NOT Indicated PVR: NA IMPRESSION/PLAN: 1.9 cm lesion in left testicle, difficult to characterize. Repeat now 4 weeks later, unable to visualize mass. Pain improving. RTW. Repeat TUS in 6 months PSA also needed. F/U with DR GUERRERO. I spent 30 minutes in the visit, with more than 50% of the total [id number] time of the visit in counseling / coordination of care. Nirmala Quesada DO MBA Referring Provider: NO PCP [[id number]] Allergies As of Date: 08/08/2020 Noted Allergy Reaction MORPHINE 06/26/2020 1 - Mental Status Change Date Reviewed: 08/08/2020 Reviewed by: Nirmala Quesada DO - Fully Assessed Reason for Visit: Penis/Scrotum Problem [80] Primary Visit Diagnosis:Testicular mass [N50.89] Other Visit Diagnosis:Pain in testicle, unspecified laterality [N50.819] Order(s):US SCROTUM AND CONTENTS [[id number]] Order #: [id number] FUTURE US DOPPLER COMPLETE [[id number]] Order #: [id number] FUTURE PSA/PROSTSPECAG DIAG [SQPSA] Order #: [id number] FUTURE Prescriptions as of 08/08/2020 Sig: * RANITIDINE 300 MG TABLET Take 1 tablet by mouth daily * Patient not taking: Reported on 12/12/2019 * CYCLOBENZAPRINE 10 MG TABLET Take 1 tablet by mouth three * Patient not taking: Reported on 12/12/2019 * HYDROCORTISONE 2.5 % TOPICAL * by RECTAL route twice daily. * Patient not taking: Reported on 12/12/2019 Problem List As Of Date 08/08/2020 Noted Resolved GASTRITIS/DUODEN NOS W/O HEMORRH [K29.70, K29.9*02/07/2005 Tobacco abuse [Z72.0] 03/14/2011 GERD (gastroesophageal reflux disease) [K21.9] 03/14/2011 Back pain [M54.9] 03/14/2011 External hemorrhoids [K64.4] 03/28/2011 Disposition: Return in about 6 months (around 02/07/2021). Follow-up and Disposition History Recorded Encounter Status:Closed by NIRMALA QUESADA on 08/08/20 [facility] CNOVon 06-27-2020 CNOV Office Visit (AKURFL ) FAM DELUNA ([id number]) 1960 M Date Time Provider Department 06/27/20 2:00 PM HUBER GUERRERO During your visit today, we recorded the following information about you: Blood pressure Weight 126/70 62.6 kg Huber Guerrero MD 06/27/2020 2:43 PM Addendum [facility] ESTABLISHED PATIENT CLINIC NOTE PATIENT INFO: Fam Deluna PCP: No primary care provider on file. UROLOGY DIAGNOSES: 1. Testicular mass - ICD9: 608.89, ICD10: N50.89 CHIEF COMPLAINT: Testicular mass HPI: Patient returns for continuing evaluation and management. Started having LEFT testicle pain - 1 week ago Pain has resolved Was hit down there when carrying boxes PMHx/PSHx: see above, otherwise unchanged Rx: reviewed and unchanged ROS: see above, otherwise unchanged Labs: Component Latest Ref Rng AND Units 06/26/2020 AFP <11.0 ng/mL <3.0 hCG Quantitative, Blood <5.0 mU/mL <0.6 LD 135 - 225 U/L 139 Imaging: [facility] OSH: 1.9 cm possible LEFT testicular mass CT: - 1.2cm LEFT heterogenous testicular mass MEDICATIONS: Current Outpatient Medications Medication Sig - Ranitidine HCl 300 mg ORAL tablet Take 1 tablet by mouth daily at bedtime. For heartburn (Patient not taking: Reported on 12/12/2019 ) - cyclobenzaprine (FLEXERIL) 10 mg ORAL tablet Take 1 tablet by mouth three times daily as needed for Muscle Spasm. (Patient not taking: Reported on 12/12/2019 ) - hydrocortisone 2.5 % RECTAL rectal cream by RECTAL route twice daily. for hemorrhoids (Patient not taking: Reported on 12/12/2019 ) No current facility-administered medications for this visit. PHYSICAL EXAM: BP 126/70 Wt 62.6 kg (138 lb) There is no height or weight on file to calculate BMI. General: Well masculinized, well nourished male Psych: euthymic, NAD Neuro: AANDOx3 Inguinal: No lesions, adenopathy, or hernias Phallus: normal, circumcised, no lesions Meatus: orthotopic, patent, no discharge Scrotum: no lesions, normal rugae Testes: Descended, nontender, and no masses bilaterally DIAGNOSES: 1. Testicular mass - ICD9: 608.89, ICD10: N50.89 IMPRESSION/PLAN: ABHIJEET and CT reviewed - 1.9 cm left testicular lesion? Tumor markers negative ?Trauma Discussed LEFT radical orchiectomy vs closer observation, pt prefers observation Repeat ABHIJEET in 4-6 weeks Huber Guerrero MD Referring Provider: FREDA REESE [[id number]] Allergies As of Date: 06/27/2020 Noted Allergy Reaction MORPHINE 06/26/2020 1 - Mental Status Change Date Reviewed: 06/27/2020 Reviewed by: Yanet Tavera Alterations Workroom Clerk - Fully Assessed Reason for Visit: Consult [173] Primary Visit Diagnosis:Testicular mass [N50.89] Order(s):US SCROTUM AND CONTENTS [[id number]] Order #: [id number] FUTURE US DOPPLER COMPLETE [[id number]] Order #: [id number] FUTURE Prescriptions as of 06/27/2020 Sig: * RANITIDINE 300 MG TABLET Take 1 tablet by mouth daily * Patient not taking: Reported on 12/12/2019 * CYCLOBENZAPRINE 10 MG TABLET Take 1 tablet by mouth three * Patient not taking: Reported on 12/12/2019 * HYDROCORTISONE 2.5 % TOPICAL * by RECTAL route twice daily. * Patient not taking: Reported on 12/12/2019 Problem List As Of Date 06/27/2020 Noted Resolved GASTRITIS/DUODEN NOS W/O HEMORRH [K29.70, K29.9*02/07/2005 Tobacco abuse [Z72.0] 03/14/2011 GERD (gastroesophageal reflux disease) [K21.9] 03/14/2011 Back pain [M54.9] 03/14/2011 External hemorrhoids [K64.4] 03/28/2011 Letter Text Encounter Status:Closed by HUBER GUERRERO on 06/27/20 Normal [facility] .Auto Diffon 10-19-2018 Ammonia (P) [Mass/Vol] 0.50 10 3/mcL Normal 0.15-1.00 [facility] ([place]) Comment on above: Performed By: #### C PAYAM WILKERSON ANEU #### [address] [address] #### TROP, BMP, GFR #### [address] [address] Basophils (Bld) [#/Vol] 0.00 10 3/mcL Normal 0.00-0.19 [facility] ([place]) Comment on above: Performed By: #### PAYAM WAHL ANEU #### [place] [address] #### TROP, BMP, GFR #### [address] [address] Basophils/100 WBC (Bld) 0.5 % Normal 0.0-2.5 [facility] ([place]) Comment on above: Performed By: #### C BCPAYAM, ANEU #### [address] [address] #### TROP, BMP, GFR #### [address] [address] Eosinophils (Bld) [#/Vol] 0.10 10 3/mcL Normal 0.00-0.40 [facility] ([place]) Comment on above: Performed By: #### C BCPAYAM, ANEU #### [address] [address] #### TROP, BMP, GFR #### [address] [address] Eosinophils/100 WBC (Bld) 1.9 % Normal 0.0-7.0 [facility] ([place]) Comment on above: Performed By: #### C BC, ADIFF, ANEU #### [address] [address] #### TROP, BMP, GFR #### [address] [address] Lymphocytes (Bld) [#/Vol] 1.70 10 3/mcL Normal 0.77-3.85 [facility] ([place]) Comment on above: Performed By: #### C BC, ADIFF, ANEU #### [place] [address] #### TROP, BMP, GFR #### [address] [address] Lymphocytes/100 WBC (Bld) 27.2 % Normal 10.0-50.0 [facility] ([place]) Comment on above: Performed By: #### C BC, ADIFF, ANEU #### [place] [address] #### TROP, BMP, GFR #### [address] [address] Monocytes/100 WBC (Bld) 7.4 % Normal 1.7-13.0 [facility] ([place]) Comment on above: Performed By: #### C BC, ADIFF, ANEU #### [address] [address] #### TROP, BMP, GFR #### [address] [address] Neutrophils/100 WBC (Bld) 63.0 % Normal 37.0-80.0 [facility] ([place]) Comment on above: Performed By: #### C BC, ADIFF, ANEU #### [place] [address] #### TROP, BMP, GFR #### [address] [address] .GFRon 10-19-2018 GFR Non- 62 ml/min/1.73sqm Normal [facility] ([place]) Comment on above: Result Comment: GFR Population mean for , Non- Americans Ages 20-29 = 116 mL/min/1.73 sq.m. Ages 30-39 = 107 mL/min/1.73 sq.m. Ages 40-49 = 99 mL/min/1.73 sq.m. Ages 50-59 = 93 mL/min/1.73 sq.m. Ages 60-69 = 85 mL/min/1.73 sq.m. Ages 70+ = 75 mL/min/1.73 sq.m. Chronic Kidney Disease: Less than 60 mL/min/1.73 square meters End Stage Renal Disease: Less than 15 mL/min/1.73 square meters Performed By: #### C BC, PAYAM, ANEU #### [address] [address] #### TROP, BMP, GFR #### [address] [address] GFR 75 ml/min/1.73sqm Normal [facility] ([place]) Comment on above: Result Comment: GFR Population mean for , Non- Americans Ages 20-29 = 116 mL/min/1.73 sq.m. Ages 30-39 = 107 mL/min/1.73 sq.m. Ages 40-49 = 99 mL/min/1.73 sq.m. Ages 50-59 = 93 mL/min/1.73 sq.m. Ages 60-69 = 85 mL/min/1.73 sq.m. Ages 70+ = 75 mL/min/1.73 sq.m. Chronic Kidney Disease: Less than 60 mL/min/1.73 square meters End Stage Renal Disease: Less than 15 mL/min/1.73 square meters Performed By: #### C BC, ADIFF, ANEU #### [address] [address] #### TROP, BMP, GFR #### [address] [address] .NEUABSon 10-19-2018 Neutrophils (Bld) [#/Vol] 4.00 10 3/mcL Normal 2.85-6.16 [facility] ([place]) Comment on above: Performed By: #### C BC, ADIFF, ANEU #### [address] [address] #### TROP, BMP, GFR #### [address] [address] BMPon 10-19-2018 Calcium [Mass/Vol] 9.4 mg/dL Normal 8.4-10.2 [facility] ([place]) Comment on above: Performed By: #### C BC, ADIFF, ANEU #### [address] [address] #### TROP, BMP, GFR #### [place] [address] Chloride [Moles/Vol] 105 mmol/L Normal 98-107 [facility] ([place]) Comment on above: Performed By: #### C BC, ADIFF, ANEU #### [place] [address] #### TROP, BMP, GFR #### [place] [address] CO2 [Moles/Vol] 28 mmol/L Normal 22-29 [facility] ([place]) Comment on above: Performed By: #### C BC, ADIFF, ANEU #### [place] [address] #### TROP, BMP, GFR #### [address] [address] Creatinine [Mass/Vol] 1.21 mg/dL Normal 0.70-1.30 [facility] ([place]) Comment on above: Performed By: #### C BC, ADIFF, ANEU #### [address] [address] #### TROP, BMP, GFR #### [place] [address] Electrolyte Balance 10.0 mEq/L Normal [facility] ([place]) Comment on above: Performed By: #### C BC, ADIFF, ANEU #### [address] [address] #### TROP, BMP, GFR #### [address] [address] Glucose [Mass/Vol] 111 mg/dL High 70-105 [facility] ([place]) Comment on above: Performed By: #### C BC, ADIFF, ANEU #### [address] [address] #### TROP, BMP, GFR #### [address] [address] Potassium [Moles/Vol] 3.9 mmol/L Normal 3.5-5.1 [facility] ([place]) Comment on above: Performed By: #### C BC, ADIFF, ANEU #### [address] [address] #### TROP, BMP, GFR #### [address] [address] Sodium [Moles/Vol] 143 mmol/L Normal 136-145 [facility] ([place]) Comment on above: Performed By: #### C BC, ADIFF, ANEU #### [address] [address] #### TROP, BMP, GFR #### [address] [address] Urea nitrogen [Mass/Vol] 15 mg/dL Normal 7-18 [facility] ([place]) Comment on above: Performed By: #### C BC, ADIFF, ANEU #### [address] [address] #### TROP, BMP, GFR #### [address] [address] Urea nitrogen/Creatinine [Mass ratio] 12 ratio Normal 7-27 [facility] ([place]) Comment on above: Performed By: #### C BC, ADIFF, ANEU #### [place] [address] #### TROP, BMP, GFR #### [address] [address] CBCon 10-19-2018 Erythrocyte distribution width (RBC) [Ratio] 14.8 % High 11.5-14.5 [facility] ([place]) Comment on above: Performed By: #### C BC, ADIFF, ANEU #### [place] [address] #### TROP, BMP, GFR #### [place] [address] Hematocrit (Bld) [Volume fraction] 44.7 % Normal 42.0-52.0 [facility] ([place]) Comment on above: Performed By: #### C BC, ADIFF, ANEU #### [place] [address] #### TROP, BMP, GFR #### [place] [address] Hemoglobin (Bld) [Mass/Vol] 15.3 G/dL Normal 14.0-18.0 [facility] ([place]) Comment on above: Performed By: #### C BC, ADIFF, ANEU #### [place] [address] #### TROP, BMP, GFR #### [place] [address] MCH (RBC) [Entitic mass] 31.0 pg Normal 27.0-31.2 [facility] ([place]) Comment on above: Performed By: #### C BC, ADIFF, ANEU #### [place] [address] #### TROP, BMP, GFR #### [place] [id number] MCHC (RBC) [Mass/Vol] 34.2 G/dL Normal 31.8-35.4 [facility] ([place]) Comment on above: Performed By: #### C BC, ADIFF, ANEU #### [place] [address] #### TROP, BMP, GFR #### [address] [address] MCV (RBC) [Entitic vol] 90.6 fL Normal 80.0-94.0 [facility] ([place]) Comment on above: Performed By: #### C BC, ADIFF, ANEU #### [address] [address] #### TROP, BMP, GFR #### [address] [address] Platelet mean volume (Bld) [Entitic vol] 8.4 fL Normal 7.4-10.4 [facility] ([place]) Comment on above: Performed By: #### C BC, ADIFF, ANEU #### [place] [address] #### TROP, BMP, GFR #### [address] [address] Platelets (Bld) [#/Vol] 230 10 3/mcL Normal 130-400 [facility] ([place]) Comment on above: Performed By: #### C BC, ADIFF, ANEU #### [place] [address] #### TROP, BMP, GFR #### [address] [address] RBC (Bld) [#/Vol] 4.93 10 6/mcL Normal 4.04-6.13 [facility] ([place]) Comment on above: Performed By: #### C BC, ADIFF, ANEU #### [place] [address] #### TROP, BMP, GFR #### [address] [address] WBC (Bld) [#/Vol] 6.40 10 3/mcL Normal 4.60-10.80 [facility] ([place]) Comment on above: Performed By: #### C BC, ADIFF, ANEU #### [place] [address] #### TROP, BMP, GFR #### [address] [address] TROPon 10-19-2018 Troponin I.cardiac [Mass/Vol] ng/mL Normal 0.000-0.040 [facility] ([place]) Comment on above: Result Comment: Trop onin I reference range: 0.00-0.040 ng/mL Negative and non-diagnostic. >0.040 ng/mL Consistent with cardiac damage, increased clinical risk and possibility of myocardial infarction. Serial measurements, a rise & fall in test results, clinical history, appropriate symptoms and/or ECG changes may help assess possibility of CA. *Other non-acute coronary syndrome conditions such as CHF, myocarditis, pulmonary emboli, sepsis and cardiac surgery could result in myocardial damage and increased troponin levels. Performed By: #### T ROP #### [place] [address] Troponin I.cardiac [Mass/Vol] ng/mL Normal 0.000-0.040 [facility] ([place]) Comment on above: Result Comment: Trop onin I reference range: 0.00-0.040 ng/mL Negative and non-diagnostic. >0.040 ng/mL Consistent with cardiac damage, increased clinical risk and possibility of myocardial infarction. Serial measurements, a rise & fall in test results, clinical history, appropriate symptoms and/or ECG changes may help assess possibility of CA. *Other non-acute coronary syndrome conditions such as CHF, myocarditis, pulmonary emboli, sepsis and cardiac surgery could result in myocardial damage and increased troponin levels. Performed By: #### C BC, ADIFF, ANEU #### Sudarshan [address] [address] #### TROP, BMP, GFR #### [address] [address] XR CHEST 2 VIEWSon 9 XR CHEST 2 VIEWS ORIGINAL 2 view chest CLINICAL HISTORY: Chest pain COMPARISON: 10/17/2016. FINDINGS: The cardiomediastinal contours are normal. The lungs are mildly hyperinflated. There is no focal airspace disease. No nodule or mass is identified. There is no appreciable pleural fluid or pneumothorax. No suspicious osseous abnormality is identified. IMPRESSION: Mild hyperinflation. No focal consolidation Interpreted By: Magan Jiang MD Preliminary Report By: Magan Jiang MD Electronically Signed By: Magan Jiang MD Dictated Date: 10/19/2018 12:04:21 PM Prelim Date: 10/19/2018 12:04:21 PM Sign Date: 10/19/2018 12:05:30 PM Normal [facility] ([place]) Influenza virus A and B and SARS-CoV-2 (COVID-19) Ag panel - Upper respiratory specim SARS-CoV-2 (COVID-19) RNA CHANTEL+probe Ql (Resp) [facility] Work Phone: RSV Ag EIA RSV Ag Immune stain Ql (Tiss) [facility] Work Phone: Vital Signs Date Time Vital Sign Value Performing Clinician Facility 06-16-2023 21:00-0400 Body temperature 97 [degF] [facility] 06-16-2023 21:00-0400 Diastolic blood pressure 64 mm[Hg] [facility] 06-16-2023 21:00-0400 Heart rate 66 /min [facility] 06-16-2023 21:00-0400 Respiratory rate 16 /min [facility] 06-16-2023 21:00-0400 SaO2% (BldA) [Mass fraction] 95 % [facility] 06-16-2023 21:00-0400 Systolic blood pressure 138 mm[Hg] [facility] 06-16-2023 15:38-0400 Body height 175.26 cm [facility] 06-16-2023 15:38-0400 Body mass index (BMI) [Ratio] 18.5 kg/m2 [facility] 06-16-2023 15:38-0400 Body weight 56.92 kg [facility] 09-10-2022 07:41-0400 Body height 175.26 cm [facility] 09-10-2022 07:41-0400 Body mass index (BMI) [Ratio] 19.9 kg/m2 [facility] 09-10-2022 07:41-0400 Body temperature 97.6 [degF] [facility] 09-10-2022 07:41-0400 Body weight 61.23 kg [facility] 09-10-2022 07:41-0400 Diastolic blood pressure 131 mm[Hg] [facility] 09-10-2022 07:41-0400 Heart rate 54 /min [facility] 09-10-2022 07:41-0400 Respiratory rate 18 /min [facility] 09-10-2022 07:41-0400 SaO2% (BldA) [Mass fraction] 97 % [facility] 09-10-2022 07:41-0400 Systolic blood pressure 142 mm[Hg] [facility] 08-11-2022 13:36-0400 Respiratory rate 17 /min [facility] 08-11-2022 12:06-0400 Body height 175.26 cm [facility] 08-11-2022 12:06-0400 Body mass index (BMI) [Ratio] 20.7 kg/m2 [facility] 08-11-2022 12:06-0400 Body temperature 97.7 [degF] [facility] 08-11-2022 12:06-0400 Body weight 63.5 kg [facility] 08-11-2022 12:06-0400 Diastolic blood pressure 90 mm[Hg] [facility] 08-11-2022 12:06-0400 Heart rate 66 /min [facility] 08-11-2022 12:06-0400 SaO2% (BldA) [Mass fraction] 100 % [facility] 08-11-2022 12:06-0400 Systolic blood pressure 138 mm[Hg] [facility] 01-30-2022 14:01-0500 Body temperature 97.3 [degF] Josh Schroeder SENIOR CONSULTING MANAGER.STENOGRAPHIC COURT REPORTER Work Phone: [facility] 01-30-2022 14:01-0500 Body weight 59.24 kg Josh Schroeder SENIOR CONSULTING MANAGER.STENOGRAPHIC COURT REPORTER Work Phone: [facility] 01-30-2022 14:01-0500 Diastolic blood pressure 82 mm[Hg] Josh Schroeder SENIOR CONSULTING MANAGER.STENOGRAPHIC COURT REPORTER Work Phone: [facility] 01-30-2022 14:01-0500 Heart rate 67 /min Josh Schroeder SENIOR CONSULTING MANAGER.STENOGRAPHIC COURT REPORTER Work Phone: [facility] 01-30-2022 14:01-0500 Respiratory rate 18 /min Josh Schroeder SENIOR CONSULTING MANAGER.STENOGRAPHIC COURT REPORTER Work Phone: [facility] 01-30-2022 14:01-0500 SaO2% (BldA) [Mass fraction] 98 % Josh Schroeder SENIOR CONSULTING MANAGER.STENOGRAPHIC COURT REPORTER Work Phone: [facility] 01-30-2022 14:01-0500 Systolic blood pressure 128 mm[Hg] Josh Schroeder SENIOR CONSULTING MANAGER.STENOGRAPHIC COURT REPORTER Work Phone: [facility] 01-16-2022 14:03-0500 Body temperature 98 [degF] [facility] Work Phone: 01-16-2022 14:03-0500 Heart rate 83 /min [facility] Work Phone: 01-16-2022 14:03-0500 Respiratory rate 16 /min [facility] Work Phone: 01-16-2022 10:58-0500 Body height 175.26 cm [facility] Work Phone: 01-16-2022 10:58-0500 Body mass index (BMI) [Ratio] 19.2 kg/m2 [facility] Work Phone: 01-16-2022 10:58-0500 Body weight 58.96 kg [facility] Work Phone: 01-16-2022 10:58-0500 Diastolic blood pressure 89 mm[Hg] [facility] Work Phone: 01-16-2022 10:58-0500 SaO2% (BldA) [Mass fraction] 100 % [facility] Work Phone: 01-16-2022 10:58-0500 Systolic blood pressure 112 mm[Hg] [facility] Work Phone: 09-16-2021 12:50-0400 Body temperature 97.81 [degF] Kayla Silva SENIOR CONSULTING MANAGER.STENOGRAPHIC COURT REPORTER Work Phone: [facility] 09-16-2021 12:50-0400 Body weight 54.43 kg Kayla Shira SENIOR CONSULTING MANAGER.STENOGRAPHIC COURT REPORTER Work Phone: [facility] 09-16-2021 12:50-0400 Diastolic blood pressure 60 mm[Hg] Kayla Shira SENIOR CONSULTING MANAGER.STENOGRAPHIC COURT REPORTER Work Phone: [facility] 09-16-2021 12:50-0400 Heart rate 63 /min Kayla Silva SENIOR CONSULTING MANAGER.STENOGRAPHIC COURT REPORTER Work Phone: [facility] 09-16-2021 12:50-0400 Respiratory rate 16 /min Kayla Shira SENIOR CONSULTING MANAGER.STENOGRAPHIC COURT REPORTER Work Phone: [facility] 09-16-2021 12:50-0400 SaO2% (BldA) [Mass fraction] 99 % Kayla Silva SENIOR CONSULTING MANAGER.STENOGRAPHIC COURT REPORTER Work Phone: [facility] 09-16-2021 12:50-0400 Systolic blood pressure 98 mm[Hg] Kayla Shira SENIOR CONSULTING MANAGER.STENOGRAPHIC COURT REPORTER Work Phone: [facility] 09-11-2021 16:03-0400 Body temperature 99.6 [degF] No Primary Care Physician [facility] Work Phone: 09-11-2021 15:39-0400 Body height 175.26 cm No Primary Care Physician [facility] Work Phone: 09-11-2021 15:39-0400 Body mass index (BMI) [Ratio] 20.7 kg/m2 No [facility] Work Phone: 09-11-2021 15:39-0400 Body weight 63.5 kg No [facility] Work Phone: 09-11-2021 15:39-0400 Diastolic blood pressure 96 mm[Hg] No [facility] Work Phone: 09-11-2021 15:39-0400 Heart rate 73 /min No [facility] Work Phone: 09-11-2021 15:39-0400 Respiratory rate 16 /min No [facility] Work Phone: 09-11-2021 15:39-0400 SaO2% (BldA) [Mass fraction] 98 % No [facility] Work Phone: 09-11-2021 15:39-0400 Systolic blood pressure 150 mm[Hg] No [facility] Work Phone: 08-27-2021 15:10-0400 Body mass index (BMI) [Ratio] 18.8 kg/m2 No [facility] Work Phone: 08-27-2021 15:10-0400 Body temperature 98.4 [degF] No [facility] Work Phone: 08-27-2021 15:10-0400 Body weight 58.05 kg No [facility] Work Phone: 08-27-2021 15:10-0400 Diastolic blood pressure 82 mm[Hg] No [facility] Work Phone: 08-27-2021 15:10-0400 Heart rate 72 /min No [facility] Work Phone: 08-27-2021 15:10-0400 Respiratory rate 14 /min No [facility] Work Phone: 08-27-2021 15:10-0400 SaO2% (BldA) [Mass fraction] 98 % No [facility] Work Phone: 08-27-2021 15:10-0400 Systolic blood pressure 144 mm[Hg] No [facility] Work Phone: 08-15-2021 15:07-0400 Body mass index (BMI) [Ratio] 18.8 kg/m2 No [facility] Work Phone: 08-15-2021 15:07-0400 Body temperature 96.6 [degF] No [facility] Work Phone: 08-15-2021 15:07-0400 Body weight 58.05 kg No [facility] Work Phone: 08-15-2021 15:07-0400 Diastolic blood pressure 60 mm[Hg] No [facility] Work Phone: 08-15-2021 15:07-0400 Heart rate 78 /min No [facility] Work Phone: 08-15-2021 15:07-0400 Respiratory rate 18 /min No [facility] Work Phone: 08-15-2021 15:07-0400 SaO2% (BldA) [Mass fraction] 98 % No [facility] Work Phone: 08-15-2021 15:07-0400 Systolic blood pressure 122 mm[Hg] No [facility] Work Phone: 05-29-2021 13:10-0400 Diastolic blood pressure 89 mm[Hg] No [facility] Work Phone: 05-29-2021 13:10-0400 Heart rate 50 /min No [facility] Work Phone: 05-29-2021 13:10-0400 Respiratory rate 17 /min No [facility] Work Phone: 05-29-2021 13:10-0400 SaO2% (BldA) [Mass fraction] 97 % No [facility] Work Phone: 05-29-2021 13:10-0400 Systolic blood pressure 157 mm[Hg] No [facility] Work Phone: 05-29-2021 11:22-0400 Body mass index (BMI) [Ratio] 20.5 kg/m2 No [facility] Work Phone: 05-29-2021 11:-040 Body temperature 96.7 [degF] No [facility] Work Phone: 05-29-2021 11:040 Body weight 63.2 kg No [facility] Work Phone: Encounters Encounter Date Encounter Type Care Provider Facility Start: 11-18-2023 End: 11-18-2023 Emergency department patient visit No [facility] Start: 09-03-2023 End: 09-03-2023 ambulatory No Primary Care Phys[facility] Start: 08-12-2023 End: 08-12-2023 Emergency department patient visit No Primary Care Phys[facility] Start: 06-16-2023 End: 06-16-2023 Emergency department [facility] Work Phone: Start: 09-10-2022 End: 09-10-2022 Emergency department patient visit [facility] Work Phone: Start: 08-11-2022 End: 08-11-2022 Emergency department patient visit [facility] Work Phone: Start: 01-30-2022 End: 01-30-2022 ambulatory Facility:[facility] Start: 01-30-2022 End: 01-30-2022 Patient encounter procedure oJsh Schroeder APRN.STENOGRAPHIC COURT REPORTER Work Phone: [facility] Comment on above: Rib pain on right si de (Primary Dx) Start: 01-16-2022 End: 01-16-2022 Emergency department patient visit [facility] Start: 09-17-2021 Telephone encounter Emilia Mcdowell APRN.STENOGRAPHIC COURT REPORTER Work Phone: [facility] Comment on above: Results Start: 09-16-2021 End: 09-16-2021 ambulatory Facility:[facility] Start: 09-16-2021 End: 09-16-2021 Patient encounter procedure Kayla Silva APRN.STENOGRAPHIC COURT REPORTER Work Phone: [facility] Comment on above: Viral illness (Prima ry Dx) Start: 09-11-2021 End: 09-11-2021 [facility] Start: 08-27-2021 End: 08-27-2021 Patient encounter procedure No Primary Care Physician [facility] Start: 08-15-2021 End: 08-15-2021 Patient encounter procedure No Primary Care Physician [facility] Start: 05-29-2021 End: 05-29-2021 Emergency department patient visit No [facility] Procedures Date Procedure Procedure Detail Performing Clinician Start: 09-10-2022 CT of soft tissues of neck with contrast Start: 08-11-2022 Plain chest X-ray Start: 01-16-2022 Plain chest X-ray Start: 09-11-2021 Plain chest X-ray No Primary Care Physician Start: 05-29-2021 Plain chest X-ray No Primary Care Physician Start: 05-29-2021 CT angiography of head and neck No Primary Care Physician Start: 06-01-2003 Colonoscopy Kayla Silva APRN.STENOGRAPHIC COURT REPORTER Work Phone: History of tonsillectomy History of tonsi llectomy No Primary Care Physician Respiratory syncytia l virus antigen assay SARS-CoV-2 & FLU Ant igen (Rapid) Viral antigen assay No Prima ry Care Physician Plan of Treatment Date Care Activity Detail Author Start: 06-16-2023 [facility] Start: 10-10-2021 Influenza vaccination INFLUENZA (#1) [facility] Start: 09-11-2021 [facility] Work Phone: Start: 08-15-2021 Patient referral [facility] Work Phone: Start: 05-29-2021 [facility] Work Phone: Start: 02-09-2021 DEPRESSION ASSESSMENT DEPRESSION ASS ESSMENT [facility] Start: 10-08-2015 PROSTATE CANCER SCREENING DISCUSSION PROSTATE CANCER SCREENING DISCUSSION [facility] Start: 05-31-2013 Colonoscopy COLONOSCOPY [facility] Start: 05-31-2013 COLORECTAL CANCER SCREENING COLORECTAL CANCER SCREENING [facility] Start: 2010 SHINGRIX VACCINE (1 of 2) SHINGRIX VACCINE (1 of 2) [facility] Start: 06-04-2007 DIABETES SCREEN DIABETES SCREEN [facility] Start: 2005 COLOGUARD (FIT-DNA) COLOGUARD (FIT-D NA) [facility] Start: [address] COLONOGRAPHY [facility] Start: 2005 FECAL OCCULT BLOOD FECAL OCCULT BLOO D [facility] Start: 2005 SIGMOIDOSCOPY SIGMOIDOSCOPY [facility] Start: 02-11-2000 Urine microalbumin profile DTAP,TDAP,TD (1 - Tdap) [facility] Start: 10-08-1995 LIPID SCREEN LIPID SCREEN [facility] Start: 1978 HEPATITIS C SCREENING HEPATITIS C SC REENING [facility] Start: 1978 HIV SCREENING HIV SCREENING [facility] Start: 1972 Adult depression screening assessment DEPRESSION SCREENING [facility] Start: 1966 PNEUMOCOCCAL (1 - PCV) PNEUMOCOCCAL (1 - PCV) [facility] Start: 04-08-1961 COVID-19 VACCINE (#1) COVID-19 VACCI NE (#1) [facility] Amylase [Enzymatic activity/volume] in Serum or Plasma [facility] Work Phone: CBC W Auto Different ial panel - Blood [facility] Work Phone: CT Chest [facility] Work Phone: Lipase measurement [facility] Work Phone: Lipid 1996 panel - S nayana or Plasma [facility] Work Phone: Patient Education [facility] Work Phone: Patient referral [facility] Work Phone: Prostate specific antigen measurement [facility] Work Phone: SARS-CoV-2 (COVID-19 ) RNA [Presence] in Respiratory specimen by CHANTEL with probe detection 2019 CORONAVIRUS Microbiology Routine Viral illness Ordered: 09/16/2021 [facility] Work Phone: Comment on above: Ordered: 09/16/2021 Thyroid stimulating hormone measurement [facility] Work Phone: Tobacco use cessatio n education [facility] Work Phone: US scan of abdominal aorta [facility] Work Phone: US Unspecified body region [facility] Work Phone: Immunizations Immunization Date Immunization Notes Care Provider Gregorio omrgan 02-10-2000 tetanus and diphther ia toxoids, adsorbed, preservative free, for adult use (2 Lf of tetanus toxoid and 2 Lf of diphtheria toxoid) Kayla Silva SENIOR CONSULTING MANAGER.[facility] Work Phone: [facility] Work Phone: Payers Date Payer Category Payer Self-pay [id number] 2021 Unknown ELENA CARTER [facility] PPO [id number] 2021-Present [phone] [id number] [place] [address] PPO [id number] Medicaid [id number] Unknown [id number] Unknown [id number] Social History Date Type Detail Facility Start: 09-11-2021 End: 06-16-2023 Tobacco smoking status NHIS Unknown if ever smoked [facility] Start: 06-21-2020 [place] [facility]: 1960 Sex Assigned At Male [facility] Start: 03-14-2011 Tobacco smoking stat us NHIS Smokes tobacco daily [facility] History of tobacco use Cigarette Smoker [facility] History of tobacco use Cigar Smoker [facility] Start: 03-14-2011 Cigarettes smoked current (pack per day) - Reported 0.5 [facility] Start: 03-14-2011 Tobacco use and exposure Smokeless tobacco non-user [facility] Start: 09-16-2021 End: 01-30-2022 Alcohol intake Current non-drinker of alcohol (finding) [facility] Start: 1960 Sex Assigned At Not on file [facility] Start: 09-06-2021 End: 09-16-2021 Exposure to SARS-CoV-2 (event) Not sure [facility] Mental Status Date Assessment Result Facility 09-10-2022 Cognitive function Level Of Cons ciousness Awake;Alert;Appropriate;[facility] Work Phone: 08-11-2022 Cognitive function Level Of Cons ciousness Awake;Alert;Appropriate;[facility] Work Phone: 01-16-2022 Cognitive function Level Of Cons ciousness Awake;Alert;Appropriate;[facility] Work Phone: 09-11-2021 Cognitive function Level Of Cons ciousness Awake;Alert;Appropriate;[facility] Work Phone: 05-29-2021 Cognitive function Level Of Cons ciousness Awake;Alert;Appropriate;[facility] Work Phone: Clinical Notes 06-27-2020 to 01-30-2022 Josh Schroeder APRN.STENOGRAPHIC COURT REPORTER - 01/30/2022 2:39 PM ESTTelephone Encounter - Hilda Cat RN - 09/17/2021 9:11 AM EDTTelephone Encounter - Cheryl Breaux LPN - 09/17/2021 9:10 AM EDTPatient Instructions Note Date & Type Note Facility 01-30-2022 Note HNO ID: [id number] Author: Josh Schroeder APRN.STENOGRAPHIC COURT REPORTER Service: ? Author Type: Nurse Practitioner Type: Progress Notes Filed: 01/30/2022 2:44 PM Note Text: Subjective HPI HPI Fam Deluna is a 61 year old male who presents today for CC of cough, rib pain. This started 1 week ago. Has tried otc medication for relief. Symptoms are worsened by nothing. Risk factors smoker. Seen in ER for this, dx viral. .Patient presents with: sharp pains in right side of back: X 1 week PAST MEDICAL HISTORY Diagnosis Date GERD (gastroesophageal reflux disease) PAST SURGICAL HISTORY Procedure Laterality Date COLONOSCOPY FLX DX W/COLLJ SPEC WHEN PFRMD 06/01/2003 normal colonoscopy EGD 2003 TONSILLECTOMY PRIMARY/SECONDARY Tonsillectomy ALLERGIES Morphine MEDICATIONS predniSONE (DELTASONE) 20 mg tablet Take 2 tablets by mouth once daily for 5 days. Ranitidine HCl 300 mg ORAL tablet Take 1 tablet by mouth daily at bedtime. For heartburn (Patient not taking: Reported on 12/12/2019 ) cyclobenzaprine (FLEXERIL) 10 mg ORAL tablet Take 1 tablet by mouth three times daily as needed for Muscle Spasm. (Patient not taking: Reported on 01/30/2022) hydrocortisone 2.5 % RECTAL rectal cream by RECTAL route twice daily. for hemorrhoids (Patient not taking: Reported on 12/12/2019 ) FAMILY HISTORY Problem Relation Age of Onset Kidney Disease Brother Fatal kidney failure Diabetes Mother Allergies Mother Social History Tobacco Use Smoking status: Every Day Packs/day: 0.50 Years: 22.00 Pack years: 11.00 Types: Cigarettes, Cigars Smokeless tobacco: Never Substance Use Topics Alcohol use: No Drug use: No ROS Objective Blood pressure 128/82, pulse 67, temperature 36.3 ?C (97.3 ?F), temperature source Tympanic, resp. rate 18, weight 59.2 kg (130 lb 9.6 oz), SpO2 98 %. Physical Exam Constitutional: General: He is not in acute distress. Appearance: He is not toxic-appearing or diaphoretic. HENT: Head: Normocephalic and atraumatic. Cardiovascular: Rate and Rhythm: Normal rate and regular rhythm. Heart sounds: Normal heart sounds, S1 normal and S2 normal. Pulmonary: Effort: Pulmonary effort is normal. Breath sounds: Normal breath sounds. Neurological: Mental Status: He is alert and oriented to person, place, and time. Gait: Gait is intact. ASSESSMENT/PLAN: 1. Rib pain on right side - ICD9: 786.50, ICD10: R07.81 Declines xray Steroids ordered F/u for severe/worsening s/s. - PREDNISONE 20 MG TABLET Josh Schroeder APRN.CNP [facility] 01-30-2022 History of Presen t illness Narrative Images from the original note were not included. Subjective HPI HPI Fam Deluna is a 61 year old male who presents today for CC of cough, rib pain. This started 1 week ago. Has tried otc medication for relief. Symptoms are worsened by nothing. Risk factors smoker. Seen in ER for this, dx viral. .Patient presents with: sharp pains in right side of back: X 1 week PAST MEDICAL HISTORY Diagnosis Date GERD (gastroesophageal reflux disease) PAST SURGICAL HISTORY Procedure Laterality Date COLONOSCOPY FLX DX W/COLLJ SPEC WHEN PFRMD 06/01/2003 normal colonoscopy EGD 2003 TONSILLECTOMY PRIMARY/SECONDARY <AGE 12 Tonsillectomy ALLERGIES Morphine MEDICATIONS predniSONE (DELTASONE) 20 mg tablet Take 2 tablets by mouth once daily for 5 days. Ranitidine HCl 300 mg ORAL tablet Take 1 tablet by mouth daily at bedtime. For heartburn (Patient not taking: Reported on 12/12/2019 ) cyclobenzaprine (FLEXERIL) 10 mg ORAL tablet Take 1 tablet by mouth three times daily as needed for Muscle Spasm. (Patient not taking: Reported on 01/30/2022) hydrocortisone 2.5 % RECTAL rectal cream by RECTAL route twice daily. for hemorrhoids (Patient not taking: Reported on 12/12/2019 ) FAMILY HISTORY Problem Relation Age of Onset Kidney Disease Brother Fatal kidney failure Diabetes Mother Allergies Mother Social History Tobacco Use Smoking status: Every Day Packs/day: 0.50 Years: 22.00 Pack years: 11.00 Types: Cigarettes, Cigars Smokeless tobacco: Never Substance Use Topics Alcohol use: No Drug use: No ROS Objective Blood pressure 128/82, pulse 67, temperature 36.3 C (97.3 F), temperature source Tympanic, resp. rate 18, weight 59.2 kg (130 lb 9.6 oz), SpO2 98 %. Physical Exam Constitutional: General: He is not in acute distress. Appearance: He is not toxic-appearing or diaphoretic. HENT: Head: Normocephalic and atraumatic. Cardiovascular: Rate and Rhythm: Normal rate and regular rhythm. Heart sounds: Normal heart sounds, S1 normal and S2 normal. Pulmonary: Effort: Pulmonary effort is normal. Breath sounds: Normal breath sounds. Neurological: Mental Status: He is alert and oriented to person, place, and time. Gait: Gait is intact. ASSESSMENT/PLAN: 1. Rib pain on right side - ICD9: 786.50, ICD10: R07.81 Declines xray Steroids ordered F/u for severe/worsening s/s. - PREDNISONE 20 MG TABLET Josh Schroeder APRN.KAREN documented in this encounter [facility] 09-17-2021 Miscellaneous Notes Patient notified of results and provider's instructions. Patient verbalizes understanding. Hilda Cat RN Phone call placed patient advised (see prior provider encounter) Patient verbalized understanding, agreed with plan of care. Cheryl Breaux LPN Patient positive for covid please notify and instruct to quarantine for the first 5 days of symptoms then mask for next 5 days ......No follow-ups on file. Up if symptoms worsen. documented in this encounter [facility] 09-16-2021 Note HNO ID: [id number] Author: Kayla Silva APRN.KAREN Service: ? Author Type: Nurse Practitioner Type: Progress Notes Filed: 09/16/2021 1:39 PM Note Text: Subjective HPI Nontoxic-appearing male presents urgent care requesting COVID-19 testing. Illness onset 6 days ago. States he needs a negative COVID test before returning to work. States he was seen in the ER over the weekend. Negative COVID-19 test. States he did have body aches chills loss of appetite loose stools. States he does feel better now. Symptoms have resolved. Denies any pain. No OTC medications. Denies any fever body aches chills productive cough chest pain shortness of breath pleuritic pain hemoptysis nausea vomiting abdominal pain rashes or change in bowel or bladder habits past medical history prescription medication use allergies reviewed. .Patient presents with: Pain: Pt reported bodyaches pain rated 5x, x6 days loss of appetite PAST MEDICAL HISTORY Diagnosis Date GERD (gastroesophageal reflux disease) PAST SURGICAL HISTORY Procedure Laterality Date COLONOSCOPY FLX DX W/COLLJ SPEC WHEN PFRMD 06/01/2003 normal colonoscopy EGD 2003 TONSILLECTOMY PRIMARY/SECONDARY Tonsillectomy ALLERGIES Morphine MEDICATIONS cyclobenzaprine (FLEXERIL) 10 mg ORAL tablet Take 1 tablet by mouth three times daily as needed for Muscle Spasm. Ranitidine HCl 300 mg ORAL tablet Take 1 tablet by mouth daily at bedtime. For heartburn (Patient not taking: Reported on 12/12/2019 ) hydrocortisone 2.5 % RECTAL rectal cream by RECTAL route twice daily. for hemorrhoids (Patient not taking: Reported on 12/12/2019 ) FAMILY HISTORY Problem Relation Age of Onset Kidney Disease Brother Fatal kidney failure Diabetes Mother Allergies Mother Social History Tobacco Use Smoking status: Every Day Packs/day: 0.50 Years: 22.00 Pack years: 11.00 Types: Cigarettes, Cigars Smokeless tobacco: Never Substance Use Topics Alcohol use: No Drug use: No BP 98/60 Pulse 63 Temp 36.6 ?C (97.8 ?F) Resp 16 Wt 54.4 kg (120 lb) SpO2 99% BMI 18.25 kg/m? Patient states baseline blood pressure is high 90s low 100s. Review of Systems Constitutional: Negative for chills, fever and malaise/fatigue. HENT: Negative for congestion, ear discharge, ear pain, sinus pain and sore throat. Eyes: Negative for blurred vision, pain, discharge and redness. Respiratory: Negative for cough, hemoptysis, sputum production, shortness of breath, wheezing and stridor. Cardiovascular: Negative for chest pain. Gastrointestinal: Negative for abdominal pain, diarrhea, nausea and vomiting. Musculoskeletal: Negative for myalgias. Skin: Negative for itching and rash. Neurological: Negative for dizziness and headaches. Objective Physical Exam Constitutional: General: He is not in acute distress. Appearance: He is not diaphoretic. HENT: Head: Normocephalic. Eyes: Conjunctiva/sclera: Conjunctivae normal. Pupils: Pupils are equal, round, and reactive to light. Cardiovascular: Rate and Rhythm: Normal rate and regular rhythm. Heart sounds: Normal heart sounds. Pulmonary: Effort: Pulmonary effort is normal. No tachypnea, accessory muscle usage or respiratory distress. Breath sounds: Normal breath sounds. No stridor. No wheezing, rhonchi or rales. Abdominal: Palpations: Abdomen is soft. Tenderness: There is no abdominal tenderness. Musculoskeletal: Cervical back: Normal range of motion and neck supple. No rigidity or tenderness. Lymphadenopathy: Cervical: No cervical adenopathy. Skin: General: Skin is warm and dry. Neurological: Mental Status: He is alert and oriented to person, place, and time. ASSESSMENT/PLAN: 1. Viral illness - ICD9: 079.99, ICD10: B34.9 - 2019 CORONAVIRUS Patient diagnosed with viral illness. COVID-19 test will be obtained. Alternative diagnosis discussed. Patient was educated on supportive therapies. Patient will follow up with primary care provider as needed. Patient was instructed to immediately proceed to emergency room for any new, worsening, or symptoms lasting longer than anticipated. The patient's clinical presentation is otherwise unremarkable at this time. Based on exam and clinical finding, the patient is stable for discharge. Plan of care was discussed with patient. Patient verbalizes understanding and agrees to plan of care. This note was generated using [employer] software. It may contain errors in wording, punctuation, or spelling. Kayla Silva APRN.KAREN [facility] 09-16-2021 Instructions Kayla Silva APRN.KAREN - 09/16/2021 12:59 PM EDT How to Manage Common Symptoms Associated with COVID for Adults Fever- Fever is a temperature over 100.4 F and can occur when the body is fighting an infection. To help treat a fever: Drink plenty of fluids and stay well hydrated. Eat small amounts of easy to digest food. Rest. Your body needs rest to recover, but getting up and moving around the house frequently is a good idea. You should try to continue doing your normal daily activities (bathing, toileting, grooming, cooking), though you will probably feel tired, and need to rest often. Avoid any heavy activity or exercise, as this will increase your body temperature. Dress in light clothing and stay covered in a light sheet. Keep the room temperature cool. Take a slightly warm (not cold or cool) bath, or apply damp washcloths to the forehead and wrists. Cough- Cough is a common symptom associated with COVID and can be bothersome. To help treat a cough: Stay well hydrated. Try warm water or tea with lemon and/or honey to help soothe the cough. Use a humidifier to add moisture to the air. Try a product with menthol, like a cough drop or a rub for your chest such as Vicks, which can help reduce cough. Try cough drops. Avoid smoking and other strong odors or perfumes. Try breathing exercises to keep your lungs open and clear. Take a big deep breath through your nose and hold for 5 seconds before slowly releasing. Repeat frequently, while you are awake. Congestion- Runny nose or nasal congestion can occur with COVID. Treatment can help relieve symptoms: Try OTC nasal saline spray, or nasal saline rinse to relieve mucus congestion. Nasal strips can help keep nasal passages open, to increase airflow. Elevating your head with an extra pillow in bed can help reduce congestion. Using a humidifier can increase moisture in the air, and make breathing easier. Sore Throat- Another common symptom with COVID, can be managed at home by: Stay well hydrated. Gargle with salt water - mix teaspoon salt with 1 cup of warm water and gargle. This helps to loosen mucus in the back of the throat and may reduce discomfort. Try ice chips, popsicles or lozenges to soothe the throat. Nausea/Vomiting/Diarrhea- These are common symptoms, and staying hydrated is most important. If you are nauseous or vomiting, start with small sips of water every 10-15 minutes and increase as tolerated. You can try sucking an ice cube too. If tolerating, you can try pedialyte or Gatorade, or flat sprite or chava-jayna. Start slowly and increase as you are able to. Instead of meals, try smaller, more frequent snacks. Try eating bland foods like crackers, toast, rice, and applesauce. Avoid spicy, greasy or fried foods and dairy containing foods. Even if you aren't feeling hungry due to lack of smell or taste, it is important to try to take in some food when you are able. After drinking and eating, rest in an upright position for up to two hours as needed to help decrease nauseous feelings. Try closing your eyes, avoid moving and watching TV. Avoid strong odors that can make you feel more nauseated. When to seek emergency medical attention Look for emergency warning signs for COVID-19. If having any of these symptoms, seek emergency medical care immediately: Trouble breathing Persistent pain or pressure in the chest New confusion Inability to wake or stay awake Bluish lips or face *This list is not all possible symptoms. Please call your medical provider for any other symptoms that are severe or concerning to you. documented in this encounter [facility] 09-16-2021 History of Presen t illness Narrative Subjective HPI Nontoxic-appearing male presents urgent care requesting COVID-19 testing. Illness onset 6 days ago. States he needs a negative COVID test before returning to work. States he was seen in the ER over the weekend. Negative COVID-19 test. States he did have body aches chills loss of appetite loose stools. States he does feel better now. Symptoms have resolved. Denies any pain. No OTC medications. Denies any fever body aches chills productive cough chest pain shortness of breath pleuritic pain hemoptysis nausea vomiting abdominal pain rashes or change in bowel or bladder habits past medical history prescription medication use allergies reviewed. .Patient presents with: Pain: Pt reported bodyaches pain rated 5x, x6 days loss of appetite PAST MEDICAL HISTORY Diagnosis Date GERD (gastroesophageal reflux disease) PAST SURGICAL HISTORY Procedure Laterality Date COLONOSCOPY FLX DX W/COLLJ SPEC WHEN PFRMD 06/01/2003 normal colonoscopy EGD 2003 TONSILLECTOMY PRIMARY/SECONDARY <AGE 12 Tonsillectomy ALLERGIES Morphine MEDICATIONS cyclobenzaprine (FLEXERIL) 10 mg ORAL tablet Take 1 tablet by mouth three times daily as needed for Muscle Spasm. Ranitidine HCl 300 mg ORAL tablet Take 1 tablet by mouth daily at bedtime. For heartburn (Patient not taking: Reported on 12/12/2019 ) hydrocortisone 2.5 % RECTAL rectal cream by RECTAL route twice daily. for hemorrhoids (Patient not taking: Reported on 12/12/2019 ) FAMILY HISTORY Problem Relation Age of Onset Kidney Disease Brother Fatal kidney failure Diabetes Mother Allergies Mother Social History Tobacco Use Smoking status: Every Day Packs/day: 0.50 Years: 22.00 Pack years: 11.00 Types: Cigarettes, Cigars Smokeless tobacco: Never Substance Use Topics Alcohol use: No Drug use: No BP 98/60 Pulse 63 Temp 36.6 C (97.8 F) Resp 16 Wt 54.4 kg (120 lb) SpO2 99% BMI 18.25 kg/m Patient states baseline blood pressure is high 90s low 100s. Review of Systems Constitutional: Negative for chills, fever and malaise/fatigue. HENT: Negative for congestion, ear discharge, ear pain, sinus pain and sore throat. Eyes: Negative for blurred vision, pain, discharge and redness. Respiratory: Negative for cough, hemoptysis, sputum production, shortness of breath, wheezing and stridor. Cardiovascular: Negative for chest pain. Gastrointestinal: Negative for abdominal pain, diarrhea, nausea and vomiting. Musculoskeletal: Negative for myalgias. Skin: Negative for itching and rash. Neurological: Negative for dizziness and headaches. Objective Physical Exam Constitutional: General: He is not in acute distress. Appearance: He is not diaphoretic. HENT: Head: Normocephalic. Eyes: Conjunctiva/sclera: Conjunctivae normal. Pupils: Pupils are equal, round, and reactive to light. Cardiovascular: Rate and Rhythm: Normal rate and regular rhythm. Heart sounds: Normal heart sounds. Pulmonary: Effort: Pulmonary effort is normal. No tachypnea, accessory muscle usage or respiratory distress. Breath sounds: Normal breath sounds. No stridor. No wheezing, rhonchi or rales. Abdominal: Palpations: Abdomen is soft. Tenderness: There is no abdominal tenderness. Musculoskeletal: Cervical back: Normal range of motion and neck supple. No rigidity or tenderness. Lymphadenopathy: Cervical: No cervical adenopathy. Skin: General: Skin is warm and dry. Neurological: Mental Status: He is alert and oriented to person, place, and time. ASSESSMENT/PLAN: 1. Viral illness - ICD9: 079.99, ICD10: B34.9 - 2019 CORONAVIRUS Patient diagnosed with viral illness. COVID-19 test will be obtained. Alternative diagnosis discussed. Patient was educated on supportive therapies. Patient will follow up with primary care provider as needed. Patient was instructed to immediately proceed to emergency room for any new, worsening, or symptoms lasting longer than anticipated. The patient's clinical presentation is otherwise unremarkable at this time. Based on exam and clinical finding, the patient is stable for discharge. Plan of care was discussed with patient. Patient verbalizes understanding and agrees to plan of care. This note was generated using [employer] software. It may contain errors in wording, punctuation, or spelling. Kayla Silva APRN.KAREN documented in this encounter [facility] 09-11-2021 Hospital Discharg e instructions Additional Instructions I suspect you have a viral illness that is causing her symptoms. While your COVID test was negative you should retest in 2 to 3 days if still symptomatic with a home test. It is possible you had a false negative today since you have only had symptoms for 1 day. Take uase-eom-zksvxmc Tylenol as well and in addition to the ibuprofen prescribed today for your symptoms. Drink lots of fluids. [facility] Work Phone: 08-08-2020 Note HNO ID: [id number] Author: Nirmala Quesada, DO Service: ? Author Type: Physician Type: Progress Notes Filed: 08/08/2020 1:44 PM Note Text: ?? [facility] [place] [facility] LOCATION: [address] [place] [address] ESTABLISHED PATIENT PATIENT INFO: Fam Deluna 59 year old Chief Complaint: Testicular mass HPI Here for one month f/u. Had repeat TUS, no mass visualized. No complaints. 1-Duration: 2020 2-Location: testis 3-Severity: N/A 4-Quality: Not applicable 5-Context: N/A 6-Timing: N/A 7-Modifying factors: No treatment prior to referral 8-Associated signs AND symptoms: no additional symptoms No question data found. PATHOLOGY: NONE LAB: WBC (/hpf) Date Value 05/18/2003 Negative Creatinine Date Value Ref Range Status 06/03/2004 0.8 0.7 - 1.4 mg/dL Final URINE POC No results found for this basename: uglucpoc,ubilipoc,uketonpoc,usg poc,uhbpoc,uphpoc,upropoc,uurop oc,unitpoc,uw bcpoc,ucolpoc,uclarpoc IMAGING: Testicular Ultrasound: IMPRESSION: Slightly heterogeneous echotexture of the left testis without definite mass lesion seen. I have independently reviewed films and my findings are the same. ALLERGIES: ALLERGIES Allergen Reactions - Morphine Mental Status Change MEDICATIONS: Ranitidine HCl 300 mg ORAL tablet Take 1 tablet by mouth daily at bedtime. For heartburn cyclobenzaprine (FLEXERIL) 10 mg ORAL tablet Take 1 tablet by mouth three times daily as needed for Muscle Spasm. hydrocortisone 2.5 % RECTAL rectal cream by RECTAL route twice daily. for hemorrhoids Does the patient take any herbal medications?: No HISTORIES PAST MEDICAL HISTORY Diagnosis Date - GERD (gastroesophageal reflux disease) Smoking Status Reviewed: Yes REVIEW OF SYSTEMS GENERAL: No fever, chills, weight loss, or fatigue. HEAD AND NECK: No blurred vision or Sjogren's syndrome CARDIOVASCULAR: NO CHEST PAIN, PALPITATIONS, ANKLE EDEMA RESPIRATORY: No chronic cough, wheezing, dyspnea, hemoptysis. MUSCULOSKELETAL: NO CHRONIC BACK PAIN, ARTHRITIS, CHRONIC NECK PAIN SKIN: NO VARICOSE VEINS, RASH, ABNORMAL ITCHING BLOOD/LYMPHATIC: No easy bleeding, easy bruising, transfusion Hx NEUROLOGICAL: NO HEADACHES, NUMBNESS, SEIZURES, STROKE PSYCHIATRIC: No depression or inordinate anxiety The remainder of the ROS was negative. PHYSICAL EXAMINATION Ht 172.7 cm (5' 8) Wt 62.6 kg (138 lb) BMI 20.98 kg/m? General appearance: Well appearing, alert, in no acute distress and well-hydrated, well nourished Skin: Skin color, texture, turgor normal, no suspicious rashes or lesions Head: Normocephalic, no masses, lesions, tenderness or abnormalities Abdomen: Normal abdominal exam, Abdomen soft, non-tender. Bowel sounds normal. No masses, organomegaly Genitourinary: MALE EXAM: Exam NOT Indicated PVR: NA IMPRESSION/PLAN: 1.9 cm lesion in left testicle, difficult to characterize. Repeat now 4 weeks later, unable to visualize mass. Pain improving. RTW. Repeat TUS in 6 months PSA also needed. F/U with DR GUERRERO. I spent 30 minutes in the visit, with more than 50% of the total jfuz-xd-etpy time of the visit in counseling / coordination of care. Nirmala Quesada DO MBA [facility] 06-27-2020 Note HNO ID: [id number] Author: Huber Guerrero MD Service: ? Author Type: Physician Type: Progress Notes Filed: 06/27/2020 2:43 PM Note Text: [facility] ESTABLISHED PATIENT CLINIC NOTE PATIENT INFO: Fam Deluna PCP: No primary care provider on file. UROLOGY DIAGNOSES: 1. Testicular mass - ICD9: 608.89, ICD10: N50.89 CHIEF COMPLAINT: Testicular mass HPI: Patient returns for continuing evaluation and management. Started having LEFT testicle pain - 1 week ago Pain has resolved Was hit down there when carrying boxes PMHx/PSHx: see above, otherwise unchanged Rx: reviewed and unchanged ROS: see above, otherwise unchanged Labs: Component Latest Ref Rng AND Units 06/26/2020 AFP <11.0 ng/mL <3.0 hCG Quantitative, Blood <5.0 mU/mL <0.6 LD 135 - 225 U/L 139 Imaging: [facility] OSH: 1.9 cm possible LEFT testicular mass CT: - 1.2cm LEFT heterogenous testicular mass MEDICATIONS: Current Outpatient Medications Medication Sig - Ranitidine HCl 300 mg ORAL tablet Take 1 tablet by mouth daily at bedtime. For heartburn (Patient not taking: Reported on 12/12/2019 ) - cyclobenzaprine (FLEXERIL) 10 mg ORAL tablet Take 1 tablet by mouth three times daily as needed for Muscle Spasm. (Patient not taking: Reported on 12/12/2019 ) - hydrocortisone 2.5 % RECTAL rectal cream by RECTAL route twice daily. for hemorrhoids (Patient not taking: Reported on 12/12/2019 ) No current facility-administered medications for this visit. PHYSICAL EXAM: BP 126/70 Wt 62.6 kg (138 lb) There is no height or weight on file to calculate BMI. General: Well masculinized, well nourished male Psych: euthymic, NAD Neuro: AANDOx3 Inguinal: No lesions, adenopathy, or hernias Phallus: normal, circumcised, no lesions Meatus: orthotopic, patent, no discharge Scrotum: no lesions, normal rugae Testes: Descended, nontender, and no masses bilaterally DIAGNOSES: 1. Testicular mass - ICD9: 608.89, ICD10: N50.89 IMPRESSION/PLAN: [facility] and CT reviewed - 1.9 cm left testicular lesion? Tumor markers negative ?Trauma Discussed LEFT radical orchiectomy vs closer observation, pt prefers observation Repeat [facility] in 4-6 weeks Huber Guerrero MD [facility] Evaluation note Diagnosis Onset Date Left testicular pain acute Mass of left testicle acute Moderate major depression ac [place] Smoker acute Immunization declined noneac tive Screening for colon cancer n oneactive Screening for cardiovascular condition noneactive Establishing care with parker stern, encounter for noneactive Erectile dysfunction noneact ludin Screening for AAA (abdominal aortic aneurysm) noneactive Screening for lung cancer no neactive Abdominal pain noneactive [facility] Work Phone: Evaluation note* Diagnosis Viral illness- Primary Unspecified viral infection, in conditions classified elsewhere and of unspecified site [facility] noteNo assessment information availableW[facility] Work Phone: Evaluation note* Diagnosis Rib pain on right side- Primary Chest pain, unspecified [facility] Additional Instructions Chest x-ray was normal. You are placed on a so medication to decrease inflammation in your esophagus if it is from reflux of stomach acids. That medication is Protonix. Take it once daily. Follow-up with a doctor if this is not improving you will need upper endoscopy a scope to go down and look at your esophagus to see what is causing him trouble swallowing if it does not get better.[facility] Work Phone: Hospital Discharge instructions Additional Instructions Please keep your scheduled appointment with surgery for evaluation of your swallowing difficulties. You have also given referral for ENT in case this is coming from above the vocal cords as they can also do their own type of scope.[facility] Work Phone: Summary Purpose Family History No Family History Records Found Relationship Condition Age at Onset Recorded Date/T dorys brother Kidney disorder Unknown Not Specified Kidney disorder Unknown Advance Directives No Advanced Directives Records Found Advance Directive Response Recorded Date/ Time Living Will No September 11, 2021 3:52pm Power of Choir Leader No September 11 3:52pm Advance Directive Response Recorded Date/ Time Living Will No January 16 11:04am Power of Choir Leader No January 16, 2022 11:04am Advance Directive Response Recorded Date/ Time Living Will No August 11, 2022 1 2:59pm Power of Choir Leader No August 11, 2022 12:59pm Advance Directive Response Recorded Date/ Time Living Will No September 10, 2022 7:42am Power of Choir Leader No September 10 7:42am Advance Directive Response Recorded Date/ Time Living Will No June 16, 2023 4: 17pm Power of Choir Leader No June 16, 2023 4:17pm Chief Complaint and Reason for Visit Chief 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 - has npp stomach issues 3 days achy,fever Reason for Visit Left testicular pain Mass of left testicle Moderate major depression Smoker Immunization declined Screening for colon cancer Screening for cardiovascular condition Establishing care with new doctor, encounter for Erectile dysfunction Screening for AAA (abdominal aortic aneurysm) Screening for lung cancer Abdominal pain Chief Complaint GENERAL ILLNESS Chief Complaint DIFFICULTY SWALLOWIN G Chief Complaint DIFFICULTY SWALLOWIN G throat Chief Complaint male c/o Health Concerns Infection Onset Date Last Indicated Resolved Time COVID-19 Confirmed 09/16/2021 09/16/2021 Additional Source Comments (unrecognized sect ion and content) No Status Records FoundNo Status Records FoundNo Status Records FoundNo Status Records Found INFORMATION SOURCE (unrecogn ized section and content) DATE CREATED AUTHOR 11/19/2018 [facility] ([place]) DATE CREATED AUTHOR AUTHOR'S ORGANIZ ATION 08/10/2020 [facility] DATE CREATED AUTHOR AUTHOR'S ORGANIZ ATION 02/02/2022 [facility] DATE CREATED AUTHOR AUTHOR'S ORGANIZ ATION [facility] Goals (unrecognized section and content) Goals may be documented in a n alternate sectionGoals may be documented in an alternate sectionGoals may be documented in an alternate sectionGoals may be documented in an alternate sectionGoals may be documented in an alternate section Source Comments (unrecognize d section and content) In the event this informatio n is protected by the Federal Confidentiality of Alcohol and Drug Abuse Patient Records regulations: The Federal rules restrict any use of the information to criminally investigate or prosecute any alcohol or drug abuse patient.[facility] the event this information is protected by the Federal Confidentiality of Alcohol and Drug Abuse Patient Records regulations: The Federal rules restrict any use of the information to criminally investigate or prosecute any alcohol or drug abuse patient.[facility] Center[facility] the event this information is protected by the Federal Confidentiality of Alcohol and Drug Abuse Patient Records regulations: The Federal rules restrict any use of the information to criminally investigate or prosecute any alcohol or drug abuse patient.[facility] Reason for Visit (unrecogniz ed section and content) Reason Comments Pain Pt reported bodyache s pain rated 5x, x6 days loss of appetite Reason Comments Results Reason Comments sharp pains in right side of back X 1 we ek Care Teams (unrecognized sec tion and content) Team Status: Active Member Role Status Dates Dr. Mejia Reilly MD Family Provider Active No Primary Care Physician Primary Care Provider Active Team Status: Inactive Member Role Status Dates Dr. Galindo Quiñones MD Emergency Provider Active No Primary Care Physician Primary Care Provider Active Team Status: Inactive Member Role Status Dates Dr. Galindo Quiñones MD Attending Provider, Emergency Pro vider Active No Primary Care Physician Primary Care Provider Active Team Status: Inactive Member Role Status Dates No Primary Care Physician Primary Care Provider Active Dr. Magali Urban , DO Emergency Provider Active Team Status: Inactive Member Role Status Dates No Primary Care Physician Primary Care Provider Active Dr. Vinod Gomez , DO Emergency Provider Active FOR RECORDS PERTAINING TO PATIENTS WHO ARE OR HAVE BEEN ENROLLED IN A CHEMICAL DEPENDENCY/SUBSTANCEABUSE PROGRAM, SOME INFORMATION MAY BE OMITTED. This clinical summary was aggregated from multiple sources. Caution should be exercised in using it in the provision of clinical care. This summary normalizes information from multiple sources, and as a consequence, information in this document may materially change the coding, format and clinical context of patient data. In addition, data may be omitted in some cases. CLINICAL DECISIONS SHOULD BE BASED ON THE PRIMARY CLINICAL RECORDS. [facility] [employer] provides no warranty or guarantee of the accuracy or completeness of information in this document.
[2024-09-11 12:31] VITALS: BP 134/78; PULSE 86; RESP 14; O2SAT 99
== END 2024-09-11 12:32 | disposition home or self-care (01) ==
PROVIDERS: Emergency Provider Emergency Medicine; Visit Provider Emergency Medicine
DX: R10.9 Unspecified abdominal pain (principal); K56.7 Ileus, unspecified; M25.551 Pain in right hip; N18.9 Chronic kidney disease, unspecified; K59.00 Constipation, unspecified; J18.9 Pneumonia, unspecified organism; F17.290 Nicotine dependence, other tobacco product, uncomplicated; R51.9 Headache, unspecified
CPT/HCPCS: 73502; 74177; 80053; 81001; 83690; 85025; 93005; 96361; 96374; 99282; Q9967; A4216